=== PATIENT | female | born 1960 | race Caucasian/White ===

== ENCOUNTER 2016-05-11 05:11 | Observation (INO) | payer MEDICARE, MEDICAID ==
[~2016-05-11] VITALS: Ht 160 cm; Wt 51.9 kg
[~2016-05-11 05:11] MED LIST: ALBU17IN2 INH; ALBU83IN INH; BACT800T5 PO; CALC600T21 PO; FOSA70TA PO; LEVA750T PO; MECL-68 PO; MUCI600T34 PO; NAPR500T2 PO; PEPC1TAB4 PO; SYMB16INH INH; TIOT18INH INH; TRAM50TA2 PO; ZOVI5CRE4 TOP; ZYRT10TA2 PO; deltasone PO
[2016-05-11] MEDS ORDERED: LORazepam 2 MG/ML VIAL (J2060) As Ordered ONE ×2 (06:15→07:17)
[2016-05-11 06:41] LABS: BASO % 0.6 % (0.0-1.0); EOS # 0.1 K/mm3 (0.0-0.50); EOS % 1.3 % (0.0-3.0); LARGE UNSTAINED CELL # 0.1 K/mm3 (0.0-0.4); LARGE UNSTAINED CELL % 1.8 % (0.0-4.0); LYMPH # 1.8 K/mm3 (1.5-4.5); LYMPH % 30.1 % (24.0-44.0); MEAN CORPUSCULAR HEMOGLOBIN 34.6 pg (27.0-33.0); MEAN CORPUSCULAR HGB CONC 33.4 g/dl (32.0-36.5); MEAN CORPUSCULAR VOLUME 103.5 fl (80.0-96.0); MONO # 0.3 K/mm3 (0.0-0.8); NEUTROPHILS # 3.7 K/mm3 (1.8-7.7); NEUTROPHILS % 61.1 % (36.0-66.0); PLATELET COUNT, AUTOMATED 190 k/mm3 (150-450); RED CELL DISTRIBUTION WIDTH 11.5 % (11.5-14.5)
[2016-05-11 06:48] LABS: AMPHETAMINES LEVEL URINE NEGATIVE (NEGATIVE); BENZODIAZEPINES URINE NEGATIVE (NEGATIVE); COCAINE METABOLITE URINE NEGATIVE (NEGATIVE); CONTROL LINE INT CTR LINE PRESENT; METHADONE URINE NEGATIVE (NEGATIVE); OPIATES URINE NEGATIVE (NEGATIVE); TRICYCLIC ANTIDEPRESS URINE POSITIVE (NEGATIVE)
[2016-05-11 06:58] LABS: VENOUS BASE EXCESS -1.5 (-2.0-2.0); VENOUS PARTIAL PRESSURE CO2 59.1 mmHg (38.0-50.0); VENOUS PARTIAL PRESSURE O2 25.9 mmHg (30.0-50.0); VENOUS STANDARD HCO3 21.9 MEQ/L; VENOUS TOTAL CO2 28.4 MEQ/L (24.0-28.0)
[2016-05-11 07:05] LABS: ALBUMIN 3.5 GM/DL (3.2-5.2); ALBUMIN/GLOBULIN RATIO 1.13 (1.00-1.93); ALKALINE PHOSPHATASE 54 U/L (45-117); ALT/SGPT 20 U/L (12-78); ANION GAP 12 MEQ/L (8-16); AST/SGOT 23 U/L (15-37); BILIRUBIN,DIRECT < 0.1 MG/DL (0.0-0.2); BILIRUBIN,TOTAL 0.2 MG/DL (0.2-1.0); BLOOD UREA NITROGEN 6 MG/DL (7-18); CALCIUM LEVEL 8.7 MG/DL (8.5-10.1); CARBON DIOXIDE LEVEL 24 MEQ/L (21-32); CHLORIDE LEVEL 102 MEQ/L (98-107); CREATININE FOR GFR 0.64 MG/DL (0.55-1.02); GLOMERULAR FILTRATION RATE > 60.0 (>51); GLUCOSE, FASTING 66 MG/DL (70-105); POTASSIUM SERUM 4.2 MEQ/L (3.5-5.1); SODIUM LEVEL 138 MEQ/L (136-145); TOTAL PROTEIN 6.6 GM/DL (6.4-8.2)
--- NOTE | 2016-05-11 07:10 | REPUSA ---
CLINICAL HISTORY: Altered mental status. TECHNIQUE: Multiple axial brain CT scan sections were obtained from base to vertex without contrast a dministration. COMMENTS: The study shows normal configuration of sella turcica. There are no intra or extra-axial collections. There is no mass effect or midline shift. There is no evidence of hematoma formation. No hydrocephal us is present. No abnormal calcifications are noted. No significant abnormalities are seen either in the posterior fossa or supratentorial compartment. The sinuses and mastoid air cells are patent. IMPRESSION: No evidence of acute intracranial pathology. Thank you for your kind referral of this patient.
[2016-05-11] MEDS ORDERED: OMEP40CA2 PO (07:40)
[2016-05-11] MEDS ORDERED: DICY20TA11 PO (07:40)
[2016-05-11] MEDS ORDERED: CALC600T68 PO (07:40)
[2016-05-11] MEDS ORDERED: AMIT100TA PO (07:40)
[2016-05-11] MEDS ORDERED: PRAM0.5T4 PO (07:40)
[2016-05-11] MEDS ORDERED: ESTR1DIS2 TD (07:42)
[2016-05-11] MEDS ORDERED: DEXTROSE 50% 50 ML SYRINGE As Ordered ONE (07:44)
[2016-05-11] MEDS ORDERED: LISI10TA4 PO (07:44)
[2016-05-11] MEDS ORDERED: OXAZEPAM 15 MG CAP As Ordered ONE (07:44)
[2016-05-11] MEDS ORDERED: THIAMINE HCL 200 MG/2 ML VIAL (J3411) As Ordered ONE (07:44)
[2016-05-11] MEDS ORDERED: ONDANSETRON 4MG/2ML VIAL (J2405) IV PRN (08:15)
[2016-05-11] MEDS ORDERED: ACETAMINOPHEN 500 MG TAB PO PRN (08:15)
[2016-05-11] MEDS ORDERED: LORazepam 2 MG/ML VIAL (J2060) IV PRN (08:15)
[2016-05-11] MEDS: FOLIC ACID 1 MG TAB PO SCH (09:00)
[2016-05-11] MEDS: PANTOPRAZOLE 40MG TAB (PROTONIX) PO SCH (09:00)
[2016-05-11] MEDS: LISINOPRIL 10 MG TAB PO SCH (09:00)
[2016-05-11] MEDS: SENOKOT S TAB PO SCH ×2 (09:00→21:31)
--- NOTE | 2016-05-11 09:08 | EDDOCDS ---
Physician Documentation [facility] Name: Nirmala Goodson Age: 55 yrs Sex: Female : 1960 Arrival Date: 05/11/2016 Time: 05:11 Bed 2 Private MD: [facility] - Adults Disposition: 05/11/16 08:24 Hospitalization ordered by Tori Ribeiro for Inpatient Admission. Preliminary diagnosis is Altered mental status, unspecified. - Bed requested for 5 Sofia. - Status is Inpatient Admission. kr3 - Condition is Stable. - Problem is an acute exacerbation. - Symptoms have improved. Historical: - Allergies: PENICILLINS; Amoxicillin; - Home Meds: 1. omeprazole 40 mg Oral cpDR 1 cap once daily 2. alendronate 70 mg oral tab 1 tab once wkly 3. acyclovir cream 5% q3h for cold sores 4. meclizine 25 mg Oral tab 1 tab 3 times per day 5. dicyclomine 20 mg Oral tab 1 tab 4 times per day 6. amitriptyline 100 mg Oral tab 2 tabs once daily hs 7. cetirizine 10 mg oral tab 1 tab once daily 8. pramipexole 0.5 mg oral tab 2 tabs twice a day 9. calcium 600mg/400U 10. lisinopril 10 mg Oral tab 1 tab once daily 11. loperamide 2 mg Oral cap 2 caps twice a day as needed - PMHx: Hypertension; - PSHx: ; Hysterectomy; Sinus Surgery; Tubal ligation; - Social history: Smoking status: unknown if patient ever smoked tobacco. Patient is speech impaired. - Family history: Not pertinent. - : Unable to assess if pt is on anticoagulants. Home medication list is obtained from pill bottles. - Exposure Risk Screening:: None identified. Vital Signs: 05/11 05:23 BP 161 / 93; Pulse 103; Resp 20; Temp 97.5(TE); Pulse Ox 100% on R/A; Weight 64.86 kg / jmv 142.99 lbs (R); Height 5 ft. 3 in. (160.02 cm) (R); Pain 0/10; 06:06 BP 111 / 70 (auto/); ko2 06:08 Pulse 89 MON; Pulse Ox 98% ; ko2 07:11 BP 147 / 72; Pulse 88; Resp 18; Pulse Ox 100% on R/A; kr3 08:05 BP 125 / 67; Pulse 100; Resp 18; Pulse Ox 96% on R/A; kr3 05:23 Body Mass Index 25.33 (64.86 kg, 160.02 cm) carline MDM: 05:54 Consult PFS/PSA/3D Technologist ordered. may 05:54 Consult PFS/PSA/3D Technologist: Patient's case requires discussion with on-call david Psychiatrist ordered. 05:54 PSA/PFS to call Nursing Plant Anatomist, to enter patient data on [place] Safe Act if patient david involuntarily admitted or transferred for SI or HI ordered. 05:54 Confirm accurate psychiatric medication list and times of last dosage ordered. may 05:54 Detain Pt Until Medically/PFS Cleared ordered. may 05:55 Acetaminophen Level Ordered. EDMS 05:55 Basic Metabolic Profile Ordered. EDMS 05:55 Drug Eval Toxicology ED Only Ordered. EDMS 05:55 Ethyl Alcohol (ethanol) Ordered. EDMS 05:55 Liver Profile Ordered. EDMS 05:55 Salicylate Level Ordered. EDMS 05:55 Thyroid Stimulating Hormone Ordered. EDMS 06:10 [employer] Youth Supervisor/Pulse Ox/q 15 min VS ordered. mm11 06:10 Accucheck ordered. mm11 06:10 IV Saline Lock ordered. mm11 06:10 Oxygen at 4L/Min NC or Home dosage ordered. mm11 06:10 Rhythm Strip to chart ordered. mm11 06:10 CBC with Diff Ordered. EDMS 06:10 Cardiac Injury Profile Ordered. EDMS 06:10 Troponin Ordered. EDMS 06:10 Urinalysis Ordered. EDMS 06:10 Urine Culture Ordered. EDMS 06:10 CT Head Without Contrast Ordered. EDMS 06:11 ECG WITH READING ER PHYS+CARDIAG ordered. EDMS 06:12 Chest, 1 View Ordered. EDMS 06:13 LORazepam 2 mg IVP once ordered. mm11 06:21 Fingerstick Blood Sugar Ordered. EDMS 06:51 Venous Blood Gas (large pea green tube on ice) Ordered. EDMS 07:04 Drug Eval Toxicology ED Only Reviewed. mm11 07:04 CBC with Diff Reviewed. mm11 07:04 Cardiac Injury Profile Reviewed. mm11 07:04 Urinalysis Reviewed. mm11 07:04 Venous Blood Gas (large pea green tube on ice) Reviewed. mm11 07:04 Troponin Reviewed. mm11 07:04 Fingerstick Blood Sugar Reviewed. mm11 07:08 Acetaminophen Level Reviewed. mm11 07:08 Basic Metabolic Profile Reviewed. mm11 07:08 Ethyl Alcohol (ethanol) Reviewed. mm11 07:08 Liver Profile Reviewed. mm11 07:08 Salicylate Level Reviewed. mm11 07:08 Thyroid Stimulating Hormone Reviewed. mm11 07:16 BED REQUEST+ADM ordered. EDMS 07:17 LORazepam 2 mg IVP once ordered. mm11 07:19 Oxazepam 30 mg PO once ordered. mm11 07:32 CT Head Without Contrast Reviewed. mm11 07:33 Thiamine 100 mg IVP once ordered. mm11 07:33 D50W 50 ml IVP once; (1 amp) ordered. mm11 08:09 Admission / Observation Status ordered. EDMS 08:10 REGULAR DIET ordered. EDMS 08:17 Financial registration complete. 08:17 [facility] Payment Agreement was scanned into [employer] and attached to record. lg Administered Medications: 06:20 Drug: LORazepam 2 mg [lorazepam 2 mg/mL injection solution (1 mL)] Route: IVP; Site: ko2 left hand; 07:19 Drug: LORazepam 2 mg [lorazepam 2 mg/mL injection solution (1 mL)] Route: IVP; Site: kr3 left hand; 07:52 Follow up: Response: No significant change. kr3 07:49 Drug: D50W 50 ml [dextrose 50 % in water (D50W) intravenous syringe (50 mL)] Route: kr3 IVP; Site: left hand; 08:06 Follow up: Response: No significant change. kr3 07:51 Drug: Thiamine 100 mg [thiamine HCl (vitamin B1) 100 mg/mL injection solution (1 mL)] kr3 Route: IVP; Site: left hand; 08:06 Follow up: Response: No significant change. kr3 08:48 Not Given (patient confused, uncooperative, agitated): Oxazepam 30 mg PO once kr3 Signatures: Dispatcher [employer] EDMS Yuliya Greene RN RN kpj Newman, Jill New, RN RN jan Ganter, LoriLee, Otoniel Frederick Nkechi Troncoso RN RN kr3 Adelso Berger, DO mm11 Elli Spencer RN RN mlc Ogden, Kari RN ko2 The chart was reviewed and I authenticate all verbal orders and agree with the evaluation and treatment provided.Corrections: (The following items were deleted from the chart) 06:12 05:55 COMPLETE BLOOD COUNT+LAB ordered. EDMS EDMS Attachments: 08:17 [facility] Payment Agreement lg MTDD
--- NOTE | 2016-05-11 09:08 | EDDOCDS ---
Nurse's Notes [facility] Name: Nirmala Goodson Age: 55 yrs Sex: Female : 1960 Arrival Date: 05/11/2016 Time: 05:11 Bed 2 Private MD: [facility] Diagnosis: Altered mental status, unspecified Presentation: 05/11 05:21 Presenting complaint: EMS states: Significant other called EMS due to pt not "acting mlc right". SO states pt was "shaky" and altered mental status. pt has slurred speech and is restless. SO states that pt likes to "stay up late, drinking and doing crafts", states pt may have drank 12 beers. Adult Sepsis Screening: Patient has new or worsening altered mentation (1 point). Patient's respiratory rate is less than 22. Systolic blood pressure is greater than 100. Patient has a qSOFA score of 1- Negative Sepsis Screen. Suicide/Homicide risk assessment- Unable to assess, the patient has an altered level of consciousness. 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 Transition of care: patient was not received from another setting of care. 05:21 Acuity: RENE Level 3 [facility] [place]:21 Method Of Arrival: Amb[place] [facility] Triage Assessment: 05:35 General: Appears unkempt, Behavior is restless, pt grabbing at railing and shaky the mlc bed, pt consoled easily. pt unable to sit still . HIV screening NA for this visit Offered previously. The patient is triaged at the bedside. See Assessment in Nurses Notes section of ED record. Neurological: Level of Consciousness is confused, obeys commands, Oriented to person. Respiratory: Airway is patent Respiratory effort is even, unlabored, Respiratory pattern is regular. Derm: Skin is normal. Historical: - Allergies: PENICILLINS; Amoxicillin; - Home Meds: 1. omeprazole 40 mg Oral cpDR 1 cap once daily 2. alendronate 70 mg oral tab 1 tab once wkly 3. acyclovir cream 5% q3h for cold sores 4. meclizine 25 mg Oral tab 1 tab 3 times per day 5. dicyclomine 20 mg Oral tab 1 tab 4 times per day 6. amitriptyline 100 mg Oral tab 2 tabs once daily hs 7. cetirizine 10 mg oral tab 1 tab once daily 8. pramipexole 0.5 mg oral tab 2 tabs twice a day 9. calcium 600mg/400U 10. lisinopril 10 mg Oral tab 1 tab once daily 11. loperamide 2 mg Oral cap 2 caps twice a day as needed - PMHx: Hypertension; - PSHx: ; Hysterectomy; Sinus Surgery; Tubal ligation; - Social history: Smoking status: unknown if patient ever smoked tobacco. Patient is speech impaired. - Family history: Not pertinent. - : Unable to assess if pt is on anticoagulants. Home medication list is obtained from pill bottles. - Exposure Risk Screening:: None identified. Screenin:20 Screening information is obtained from staff. Fall risk: At risk due to apparent kr3 chemical impairment, apparent cognitive impairment, The following interventions are performed due to a positive Fall Risk Screen: Fall Alert bracelet is placed on the patient. Assistance ADL's: unable to assess. Abuse/DV Screen: Unable to Assess. Nutritional screening: Unable to Assess. Advance Directives: Unable to assess Advance Directive status due to pt condition. Assessment: 05:38 General: pt given 0.4mg narcan by EMS, no significant change noted. mlc 05:39 General: Appears distressed, Behavior is anxious, restless. Pain: Denies pain. ko2 Neurological: Level of Consciousness is awake, alert. Cardiovascular: Rhythm is sinus rhythm No ectopy. Respiratory: Airway is patent Respiratory effort is even, unlabored. Derm: Skin is normal. 06:27 General: Appears distressed, Behavior is anxious. Neurological: Level of Consciousness ko2 is awake. Respiratory: Airway is patent Respiratory effort is even, unlabored. Derm: Skin is normal. 07:10 Reassessment: increase agitation, calmed with redirection. High of bed elevated and kr3 patient covered with blankets and patient became calmer. Sitter at bedside. 07:20 Reassessment: continues to be restless, throwing arms and legs all over bed, kr3 redirection unsuccessful, Dr Berger aware and medication given. 07:52 Reassessment: agitation continues and not following directions. Does not open eyes. kr3 Arms and legs all over stretcher. Bleeding from left forearm from old wound that scab came off from, bandaid applied to area. 09:00 Reassessment: agitation continues, thrashing arms and legs all over stretcher, unable kr3 to redirect for even small amount of time. Respiratory: Respiratory effort is even. Derm: Skin is normal, multiple areas of old wounds on arms. Vital Signs: 05:23 BP 161 / 93; Pulse 103; Resp 20; Temp 97.5(TE); Pulse Ox 100% on R/A; Weight 64.86 kg [facility] (R); Height 5 ft. 3 in. (160.02 cm) (R); Pain 0/10; 06:06 BP 111 / 70 (auto/); ko2 06:08 Pulse 89 MON; Pulse Ox 98% ; ko2 07:11 BP 147 / 72; Pulse 88; Resp 18; Pulse Ox 100% on R/A; kr3 08:05 BP 125 / 67; Pulse 100; Resp 18; Pulse Ox 96% on R/A; kr3 05:23 Body Mass Index 25.33 (64.86 kg, 160.02 cm) [facility] Vitals: 05:35 Log In Time N/A - ambulance arrival. [facility] [place] Course: 05:12 Patient visited by Mai Haddad, Senior Sales Administrator. ml3 05:12 Dorota Rodriguez is Private Physician. ml3 05:12 [facility] is Private Physician. ml3 05:12 Loni Cortes,RN is Primary Nurse. ml3 05:12 Patient moved to Waiting ml3 05:12 Patient moved to 2 ml3 05:24 Pt greeted and oriented to ED. Patient advised of names of staff involved in care, [facility] location of call rojas, wait times and NPO status. Patient has correct armband on for positive identification. Placed in gown. Bed in low position. Call light in reach. Side rails up X2. instrument fitter on. Pulse ox on. NIBP on. 05:25 Patient visited by Phil Varghese PCA. [facility] 05:27 Triage Initiated [facility] 05:37 Maintain field IV. Gauge & site: 22g left hand. [facility] 06:05 Adelso Berger DO is Attending Physician. mm11 06:05 Patient visited by Adelso Berger DO. mm11 06:09 Patient visited by Adelso Berger DO. mm11 06:26 CBC with Diff Sent. ko2 06:26 Cardiac Injury Profile Sent. ko2 06:26 Troponin Sent. ko2 06:26 Urinalysis Sent. ko2 06:27 Patient visited by Loni Cortes RN. ko2 06:27 Urine Culture Sent. ko2 06:27 Ethyl Alcohol (ethanol) Sent. ko2 06:27 Liver Profile Sent. ko2 06:32 Patient visited by Lavinia Simpson PCA. cln 06:32 EKG done. (by ED staff). Reviewed by Adelso Berger DO. cln 07:06 Nkechi Troncoso,RN is Primary Nurse. kr3 07:10 Patient visited by Nkechi Troncoso,RN. kr3 07:29 CT Head Without Contrast Returned. EDMS 07:51 Patient visited by Nkechi Troncoso,FLORENCIO. kr3 07:54 The patient / caregiver is instructed regarding the plan of care and ED course. kr3 08:13 Patient name changed from Nirmala\\S\\\\S\\Goodson\\S\\ to Nirmala\\S\\ \\S\\Goodson. EDMS 08:17 [facility] Payment Agreement was scanned into [employer] and attached to record. lg 08:24 Tori Ribeiro is Hospitalizing Provider. mm11 08:59 No procedures done that require assistance. kr3 Administered Medications: 06:20 Drug: LORazepam 2 mg [lorazepam 2 mg/mL injection solution (1 mL)] Route: IVP; Site: ko2 left hand; 07:19 Drug: LORazepam 2 mg [lorazepam 2 mg/mL injection solution (1 mL)] Route: IVP; Site: kr3 left hand; 07:52 Follow up: Response: No significant change. kr3 07:49 Drug: D50W 50 ml [dextrose 50 % in water (D50W) intravenous syringe (50 mL)] Route: kr3 IVP; Site: left hand; 08:06 Follow up: Response: No significant change. kr3 07:51 Drug: Thiamine 100 mg [thiamine HCl (vitamin B1) 100 mg/mL injection solution (1 mL)] kr3 Route: IVP; Site: left hand; 08:06 Follow up: Response: No significant change. kr3 08:48 Not Given (patient confused, uncooperative, agitated): Oxazepam 30 mg PO once kr3 Order Results: Lab Order: Acetaminophen Level; SPEC'M 05/11/16 06:21 Test: ACETAMINOPHEN LEVEL; Value: < 2.0; Range: 10.0-30.0; Abnormal: Below low normal; Units: UG/ML; Status: F Lab Order: Basic Metabolic Profile; SPEC'M 05/11/16 06:21 Test: GLUCOSE, FASTING; Value: 66; Range: 70-105; Abnormal: Below low normal; Units: MG/DL; Status: F Test: BLOOD UREA NITROGEN; Value: 6; Range: 7-18; Abnormal: Below low normal; Units: MG/DL; Status: F Test: CREATININE FOR GFR; Value: 0.64; Range: 0.55-1.02; Units: MG/DL; Status: F Test: GLOMERULAR FILTRATION RATE; Value: > 60.0; Range: >51; Status: F Test: SODIUM LEVEL; Value: 138; Range: 136-145; Units: MEQ/L; Status: F Test: POTASSIUM SERUM; Value: 4.2; Range: 3.5-5.1; Units: MEQ/L; Status: F Test: CHLORIDE LEVEL; Value: 102; Range: 98-107; Units: MEQ/L; Status: F Test: CARBON DIOXIDE LEVEL; Value: 24; Range: 21-32; Units: MEQ/L; Status: F Test: ANION GAP; Value: 12; Range: 8-16; Units: MEQ/L; Status: F Test: CALCIUM LEVEL; Value: 8.7; Range: 8.5-10.1; Units: MG/DL; Status: F Test Note: ; Units are mL/min/1.73 m2 Chronic Kidney Disease Staging per NKF: Stage I & II GFR >=60 Normal to Mildly Decreased Stage III GFR 30-59 Moderately Decreased Stage IV GFR 15-29 Severely Decreased Stage V GFR <15 Very Little GFR Left ESRD GFR <15 on SALES RECRUITER Lab Order: Drug Eval Toxicology ED Only; SPEC'M 05/11/16 06:21 Test: AMPHETAMINES LEVEL URINE; Value: NEGATIVE; Range: NEGATIVE; Status: F Test: BARBITURATES URINE; Value: NEGATIVE; Range: NEGATIVE; Status: F Test: BENZODIAZEPINES URINE; Value: NEGATIVE; Range: NEGATIVE; Status: F Test: CANNABINOIDS URINE; Value: NEGATIVE; Range: NEGATIVE; Status: F Test: COCAINE METABOLITE URINE; Value: NEGATIVE; Range: NEGATIVE; Status: F Test: METHADONE URINE; Value: NEGATIVE; Range: NEGATIVE; Status: F Test: OPIATES URINE; Value: NEGATIVE; Range: NEGATIVE; Status: F Test: TRICYCLIC ANTIDEPRESS URINE; Value: POSITIVE; Range: NEGATIVE; Abnormal: Above high normal; Status: F Test Note: ; ALL PRESUMPTIVE POSITIVE FINDINGS ARE UNCONFIRMED NORMAL VALUES THRESHOLD IN NG/ML AMPHETAMINES 1000 METHAMPHETAMINES 1000 BARBITURATES 300 BENZODIAZEPINES 300 CANNABINOIDS (THC) 50 COCAINE METABOLITE 300 METHADONE 300 OPIATES 300 PHENCYCLIDINE 25 TRICYCLIC ANTIDEPRESSANTS 1000 RESULTS ARE FOR MEDICAL PURPOSES ONLY. ALL URINE SPECIMENS WILL BE SAVED FOR 3 DAYS. IF CONFIRMATION OF A PRESUMPTIVE POSTIVE SCREEN RESULT IS DESIRED, CALL CHEMISTRY ([phone]) AND REQUEST URINE TO BE SENT TO REFERENCE LAB. FOR A LIST OF CLOSELY RELATED COMPOUNDS PLEASE CALL THE LAB. Lab Order: Ethyl Alcohol (ethanol); SPEC'M 05/11/16 06:21 Test: ETHYL ALCOHOL (ETHANOL); Value: 0.092; Range: 0.000-0.010; Abnormal: Above high normal; Units: %; Status: F Lab Order: Liver Profile; SPEC'M 05/11/16 06:21 Test: AST/SGOT; Value: 23; Range: 15-37; Units: U/L; Status: F Test: ALT/SGPT; Value: 20; Range: 12-78; Units: U/L; Status: F Test: ALKALINE PHOSPHATASE; Value: 54; Range: 45-117; Units: U/L; Status: F Test: BILIRUBIN,TOTAL; Value: 0.2; Range: 0.2-1.0; Units: MG/DL; Status: F Test: BILIRUBIN,DIRECT; Value: < 0.1; Range: 0.0-0.2; Units: MG/DL; Status: F Test: TOTAL PROTEIN; Value: 6.6; Range: 6.4-8.2; Units: GM/DL; Status: F Test: ALBUMIN; Value: 3.5; Range: 3.2-5.2; Units: GM/DL; Status: F Test: ALBUMIN/GLOBULIN RATIO; Value: 1.13; Range: 1.00-1.93; Status: F Lab Order: Salicylate Level; SPEC'M 05/11/16 06:21 Test: SALICYLATE LEVEL; Value: 5.6; Range: 5.0-30.0; Units: MG/DL; Status: F Lab Order: Thyroid Stimulating Hormone; SPEC'M 05/11/16 06:21 Test: THYROID STIMULATING HORMONE; Value: 2.360; Range: 0.358-3.740; Units: uIU/ML; Status: F Lab Order: CBC with Diff; SPEC'M 05/11/16 06:21 Test: WHITE BLOOD COUNT; Value: 6.0; Range: 4.0-10.0; Units: K/mm3; Status: F Test: RED BLOOD COUNT; Value: 4.03; Range: 4.00-5.40; Units: M/mm3; Status: F Test: HEMOGLOBIN; Value: 14.0; Range: 12.0-16.0; Units: g/dl; Status: F Test: HEMATOCRIT; Value: 41.7; Range: 36.0-47.0; Units: %; Status: F Test: MEAN CORPUSCULAR VOLUME; Value: 103.5; Range: 80.0-96.0; Abnormal: Above high normal; Units: fl; Status: F Test: MEAN CORPUSCULAR HEMOGLOBIN; Value: 34.6; Range: 27.0-33.0; Abnormal: Above high normal; Units: pg; Status: F Test: MEAN CORPUSCULAR HGB CONC; Value: 33.4; Range: 32.0-36.5; Units: g/dl; Status: F Test: RED CELL DISTRIBUTION WIDTH; Value: 11.5; Range: 11.5-14.5; Units: %; Status: F Test: PLATELET COUNT, AUTOMATED; Value: 190; Range: 150-450; Units: k/mm3; Status: F Test: NEUTROPHILS %; Value: 61.1; Range: 36.0-66.0; Units: %; Status: F Test: LYMPH %; Value: 30.1; Range: 24.0-44.0; Units: %; Status: F Test: MONO %; Value: 5.0; Range: 0.0-5.0; Units: %; Status: F Test: EOS %; Value: 1.3; Range: 0.0-3.0; Units: %; Status: F Test: BASO %; Value: 0.6; Range: 0.0-1.0; Units: %; Status: F Test: LARGE UNSTAINED CELL %; Value: 1.8; Range: 0.0-4.0; Units: %; Status: F Test: NEUTROPHILS #; Value: 3.7; Range: 1.8-7.7; Units: K/mm3; Status: F Test: LYMPH #; Value: 1.8; Range: 1.5-4.5; Units: K/mm3; Status: F Test: MONO #; Value: 0.3; Range: 0.0-0.8; Units: K/mm3; Status: F Test: EOS #; Value: 0.1; Range: 0.0-0.50; Units: K/mm3; Status: F Test: BASO #; Value: 0.0; Range: 0.0-0.2; Units: K/mm3; Status: F Test: LARGE UNSTAINED CELL #; Value: 0.1; Range: 0.0-0.4; Units: K/mm3; Status: F Lab Order: Cardiac Injury Profile; SPEC'M 05/11/16 06:21 Test: CPK CREATINE PHOSPHOKINASE; Value: 72; Range: 26-192; Units: U/L; Status: F Test: CK-MB VALUE MASS; Value: 3.6; Range: 0.0-3.6; Units: NG/ML; Status: F Test: MB/CK RELATIVE INDEX; Value: 5.00; Range: < OR =4; Abnormal: Above high normal; Status: F Test Note: ; DIAGNOSIS CRITERIA MMB ng/ml Relative Index (RI) NON-AMI < or = 5 N/A [place] > 5 < or = 4 AMI > 5 > 4 Lab Order: Troponin; SPEC'M 05/11/16 06:21 Test: TROPONIN I; Value: < 0.02; Range: < 0.10; Units: NG/ML; Status: F Test Note: ; Troponin I Reference Interval for CDP LOCI: 99th Percentile= 0.00-0.045 ng/ml Risk Stratification: <= 0.10 ng/ml Decreased Risk for Adverse Clinical Events. 0.10-1.50 ng/ml Increased Risk for Adverse Clinical Events. Evaluation of additional criterion and/or repeat testing in 2-6 hours is suggested to rule out myocardial damage. >= 1.50 ng/ml Indicative of Myocardial Injury. Lab Order: Urinalysis; SPEC'M 05/11/16 06:21 Test: APPEARANCE, URINE; Value: CLEAR; Range: CLEAR; Status: F Test: COLOR, URINE; Value: STRAW; Range: YELLOW; Status: F Test: PH,URINE; Value: 5.0; Range: 5.0-9.0; Units: UNITS; Status: F Test: SPECIFIC GRAVITY URINE AUTO; Value: 1.001; Range: 1.002-1.035; Abnormal: Below low normal; Status: F Test: PROTEIN, URINE AUTO; Value: NEGATIVE; Range: NEGATIVE; Units: mg/dL; Status: F Test: GLUCOSE, URINE (UA) AUTO; Value: NEGATIVE; Range: NEGATIVE; Units: mg/dL; Status: F Test: KETONE, URINE AUTO; Value: NEGATIVE; Range: NEGATIVE; Units: mg/dL; Status: F Test: UROBILINOGEN, URINE AUTO; Value: 0.2; Range: 0.0-2.0; Units: mg/dL; Status: F Test: BILIRUBIN, URINE AUTO; Value: NEGATIVE; Range: NEGATIVE; Status: F Test: NITRITE, URINE AUTO; Value: POSITIVE; Range: NEGATIVE; Status: F Test: LEUKOCYTE ESTERASE, URINE AUTO; Value: TRACE; Range: NEGATIVE; Abnormal: Above high normal; Status: F Test: BLOOD, URINE BLOOD; Value: 1+; Range: NEGATIVE; Abnormal: Above high normal; Status: F Test: WBC, URINE AUTO; Value: 2; Range: 0-3; Units: /HPF; Status: F Test: RBC, URINE AUTO; Value: 0; Range: 0-3; Units: /HPF; Status: F Test: BACTERIA, URINE AUTO; Value: 2+; Range: NEGATIVE; Abnormal: Above high normal; Status: F Test: SQUAMOUS EPITHELIAL CELL UR AU; Value: 0; Range: 0-6; Units: /HPF; Status: F Test: HYALINE CAST, URINE AUTO; Value: 0; Range: 0-1; Units: /LPF; Status: F Lab Order: Fingerstick Blood Sugar; SPEC'M 05/11/16 06:11 Test: BEDSIDE GLUCOSE; Value: 71; Range: 70-105; Units: MG/DL; Status: F Lab Order: Venous Blood Gas (large pea green tube on ice); SPEC'M 05/11/16 06:21 Test: VENOUS PH; Value: 7.271; Range: 7.330-7.430; Abnormal: Below low normal; Units: UNITS; Status: F Test: VENOUS PARTIAL PRESSURE CO2; Value: 59.1; Range: 38.0-50.0; Abnormal: Above high normal; Units: mmHg; Status: F Test: VENOUS PARTIAL PRESSURE O2; Value: 25.9; Range: 30.0-50.0; Abnormal: Below low normal; Units: mmHg; Status: F Test: VENOUS TOTAL CO2; Value: 28.4; Range: 24.0-28.0; Abnormal: Above high normal; Units: MEQ/L; Status: F Test: VENOUS HCO3; Value: 26.6; Range: 23.0-27.0; Units: MEQ/L; Status: F Test: VENOUS BASE EXCESS; Value: -1.5; Range: -2.0-2.0; Status: F Test: VENOUS STANDARD HCO3; Value: 21.9; Units: MEQ/L; Status: F Test: VENOUS O2 SATURATION; Value: 42.0; Range: 60.0-80.0; Abnormal: Below low normal; Units: %; Status: F Radiology Order: CT Head Without Contrast Test: CT Head Without Contrast REASON FOR EXAMINATION: AMS; ; CLINICAL HISTORY: Altered mental status.; TECHNIQUE: Multiple axial brain CT scan sections were obtained from base to vertex without contrast a; dministration.; COMMENTS:; The study shows normal configuration of sella turcica. There are no intra or extra-axial collections.; There is no mass effect or midline shift. There is no evidence of hematoma formation. No hydrocephal; us is present. No abnormal calcifications are noted.; No significant abnormalities are seen either in the posterior fossa or supratentorial compartment.; The sinuses and mastoid air cells are patent.; IMPRESSION:; No evidence of acute intracranial pathology.; Thank you for your kind referral of this patient.; ; Outcome: 07:54 CT Study completed. 3 08:24 Decision to Hospitalize by Provider. mm11 08:59 Discharge Assessment: patient administered narcotics - yes. Patient was admitted to the [facility] or transferred to another facility. The following High Risk Discharge criteria are identified: Yes, Admitted to Med/Surg accompanied by tech, via stretcher, with chart. Condition: unchanged. Property :Personal belongings accompany Pt. 09:07 Patient left the ED. [facility] Signatures: Dispatcher [employer] EDMS Mono Ly, Reg Reg lg Boo, JellyTylerAlisa, Senior Sales Administrator Unit ml3 Nkechi Troncoso,RN RN kr3 Adelso Berger, DO mm11 Elli Spencer,RN RN Loni Flores RN RN [email or web address] Lavinia Simpson, STEEL UNLOADER STEEL UNLOADER cln Phil Varghese, STEEL UNLOADER STEEL UNLOADER jmv Corrections: (The following items were deleted from the chart) 07:14 07:11 BP 111 / 70; Pulse 88bpm; Resp 16bpm; Pulse Ox 100% RA; [place] [id number] MTDD
--- NOTE | 2016-05-11 09:12 | REP ---
Portable chest x-ray: Sitting AP view. History: Altered mental status. Comparison study November 22, 2014. 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 Lung rossi are otherwise clear. Pleural angles are sharp. Cardiomediastinal silhouette is unremarkable and unchanged. EKG monitoring electrodes overlie the chest. Impression: No active disease. Signed by Tyler Chirinos MD 05/11/2016 10:22 A
[2016-05-11 09:28] VITALS: BP 154/89
--- NOTE | 2016-05-11 09:30 | ECGEPIP ---
Stationary ECG Study [facility] - ED Test Date: 2016-05-11 Pat Name: GRETCHEN GO Department: Room: - Gender: F Material Expediter: indira : 1960 Requested By: FRANCOIS Polk Order Number: [id number] Reading MD: Dano Haskins Measurements Intervals [place] Rate: 87 P: 66 OR: 157 QRS: 87 QRSD: 98 T: 70 QT: 378 QTc: 457 Interpretive Statements SINUS RHYTHM WITH SINUS ARRHYTHMIA Electronically Signed On 05-11-2016 9:29:54 EST by Dano Haskins
[2016-05-11] MEDS: D5W/0.9% SODIUM CHLORIDE 1,000 ML IV SCH ×2 (09:52→21:31)
[2016-05-11] MEDS: ENOXAPARIN 40 MG/0.4 ML SYRINGE (J1650) SC SCH (09:52)
[2016-05-11 11:26] LABS: ABG BASE EXCESS -0.1 (-2.0-2.0); ABG HCO3 24.8 MEQ/L (22.0-26.0); ABG PARTIAL PRESSURE CO2 41.1 mmHg (35.0-45.0); ABG PARTIAL PRESSURE O2 80.7 mmHg (75.0-100.0); ABG STANDARD HCO3 24.4 MEQ/L (22.0-26.0); ABG pH (ARTERIAL) 7.398 UNITS (7.350-7.450)
[2016-05-11] MEDS: OXAZEPAM 15 MG CAP PO SCH ×2 (14:00→21:31)
[2016-05-11] MEDS: AMITRIPTYLINE 50 MG TAB PO SCH (21:31)
[2016-05-11 22:00] VITALS: BP 129/77
[2016-05-12] MEDS: OXAZEPAM 15 MG CAP PO SCH ×3 (05:43→21:15)
[2016-05-12 06:00] VITALS: BP 105/61
[2016-05-12 06:52] LABS: BASO % 0.2 % (0.0-1.0); EOS # 0.1 K/mm3 (0.0-0.50); EOS % 1.1 % (0.0-3.0); LARGE UNSTAINED CELL # 0.1 K/mm3 (0.0-0.4); LARGE UNSTAINED CELL % 1.7 % (0.0-4.0); LYMPH # 1.2 K/mm3 (1.5-4.5); MEAN CORPUSCULAR HEMOGLOBIN 35.3 pg (27.0-33.0); MEAN CORPUSCULAR HGB CONC 34.1 g/dl (32.0-36.5); MEAN CORPUSCULAR VOLUME 103.4 fl (80.0-96.0); MONO # 0.3 K/mm3 (0.0-0.8); MONO % 5.1 % (0.0-5.0); NEUTROPHILS # 3.7 K/mm3 (1.8-7.7); PLATELET COUNT, AUTOMATED 163 k/mm3 (150-450); RED CELL DISTRIBUTION WIDTH 11.5 % (11.5-14.5); WHITE BLOOD COUNT 5.4 K/mm3 (4.0-10.0)
[2016-05-12 07:14] LABS: ANION GAP 9 MEQ/L (8-16); BLOOD UREA NITROGEN 5 MG/DL (7-18); CALCIUM LEVEL 8.3 MG/DL (8.5-10.1); CARBON DIOXIDE LEVEL 25 MEQ/L (21-32); CHLORIDE LEVEL 110 MEQ/L (98-107); CREATININE FOR GFR 0.73 MG/DL (0.55-1.02); GLOMERULAR FILTRATION RATE > 60.0 (>51); GLUCOSE, FASTING 77 MG/DL (70-105); POTASSIUM SERUM 3.8 MEQ/L (3.5-5.1); SODIUM LEVEL 144 MEQ/L (136-145)
[2016-05-12] MEDS: PANTOPRAZOLE 40MG TAB (PROTONIX) PO SCH (09:09)
[2016-05-12] MEDS: FOLIC ACID 1 MG TAB PO SCH (09:09)
[2016-05-12] MEDS: LISINOPRIL 10 MG TAB PO SCH (09:09)
[2016-05-12] MEDS: SENOKOT S TAB PO SCH ×2 (09:09→21:15)
[2016-05-12] MEDS: ENOXAPARIN 40 MG/0.4 ML SYRINGE (J1650) SC SCH (09:09)
[2016-05-12] MEDS: THIAMINE 100 MG TAB PO SCH (09:09)
[2016-05-12 10:12] LABS: PROLACTIN 1.9 NG/ML
[2016-05-12] MEDS: D5W/0.9% SODIUM CHLORIDE 1,000 ML IV SCH (11:00)
--- NOTE | 2016-05-12 11:27 | HPE ---
DATE OF ADMISSION: 05/11/2016 PRIMARY CARE PROVIDER: [facility]. CHIEF COMPLAINT: Patient sent to the hospital because " she was not acting right". PAST MEDICAL HISTORY: Hypertension. Osteoporosis. Gastroesophageal reflux disease (GERD). Alcohol abuse. Depression. Irritable bowel syndrome. History of herpes. Chronic obstructive pulmonary disease (COPD). HISTORY OF PRESENT ILLNESS: This is a 55-year-old female from home who lives with her boyfriend who was in her usual state of health yesterday evening. She works with arts and [employer] and as per the boyfriend has been working physically over the past 2-3 weeks using glue gun for hours at a stretch. Also she has been drinking more for the past 2-3 weeks. She usually drinks beer and starts from around 6 o'clock in the evening until she goes to bed. Yesterday she was working until 2-3 a.m. in the morning and then she went to bed. Trying to sleep when the boyfriend noticed her limbs to be jerking around and she tried to get out of bed , was flailing and losing balance so the patient's boyfriend told her to stay in bed, however, the patient was confused and getting agitated and not following his directions so the ambulance was called and the patient was sent to the emergency room. In the ED, patient was found to have an alcohol level of 0.1092. Patient' s urine toxicology was positive for tricyclic antidepressants. The rest of the blood work was within normal limits. Patient's CT scan of the head was negative. Patient's arterial blood gas was normal. Patient did have mildly low blood sugar at 66. Chest x-ray did not show any acute disease. Patient's vital signs were stable without any fever. The hospitalist service was consulted for admission for altered mental status, acute encephalopathy versus delirium. On my exam, the patient was mostly sedated, waking up only to pain. Patient had previously received Serax in the emergency room for agitation. No history could be elicited from the patient, however, patient's boyfriend at bedside gave most of the history. 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 She also has been drinking more heavily for the past 2-3 weeks. She did deny any fevers or chills at home. Denied any sickness or sensation of illness before yesterday. PAST SURGICAL HISTORY: Hysterectomy. Sinus surgery. Tubal ligation. SOCIAL HISTORY: Patient abuses alcohol in the form of beer. Patient is a smoker. HOME MEDICATIONS: - Acyclovir 5% cream as needed cold sores - Fosamax 70 mg once a week - amitriptyline 200 mg at bedtime - vitamin D one tablet by mouth twice daily - cetirizine 10 mg by mouth daily - dicyclomine 20 mg by mouth four times daily - Estradiol - lisinopril 10 mg by mouth daily - meclizine 25 mg by mouth three times daily - omeprazole 40 mg by mouth daily - pramipexole 1 mg by mouth twice daily ALLERGIES: LEVOFLOXACIN, PENICILLIN, SULFAMETHOXAZOLE, TRIMETHOPRIM. FAMILY HISTORY: Nothing pertinent. REVIEW OF SYSTEMS: Ten point view of system, negative except for what mentioned in history of present illness. PHYSICAL EXAMINATION: Vital Signs: Temperature 95.9, pulse 111, blood pressure 154/89, pulse oximetry 90% on room air, respiratory rate 14. General: Patient lethargic, responding only to pain with agitation. HEENT: Normocephalic, atraumatic. Moist mucous membranes. Pupils 3 mm equal, reacting to light. Chest: Bilateral symmetric air entry, clear to auscultation. Cardiovascular: S1, S2, no rub, murmur or gallop. Abdomen: Soft, nontender, bowel sounds present. Extremities: No edema. Laboratory data: WBC 6, hemoglobin 14, platelets 190. Sodium 138, potassium 4.2, chloride 102, bicarbonate 24, BUN 6, creatinine 0.6, glucose 66. Cardiac enzymes are negative. Liver function tests are normal. TSH is 2.36. Imaging: CT head: No evidence of acute intracranial pathology. Chest x-ray: No active disease. ASSESSMENT: This is a 55-year-old female presented to the hospital with acute alteration of mental status and admitted for the same. 1. Acute encephalopathy. Metabolic versus toxic. Possibility of glue inhalation mediated encephalopathy. 2. Alcohol intoxication and possibly withdrawal. 3. Hypertension. 4. Depression. 5. Irritable bowel syndrome. 6. Gastroesophageal reflux disease (GERD). 7. History of vertigo. 8. Allergies. PLAN: For acute encephalopathy, will get an MRI and MRA of the brain to rule out any signs of encephalitis, though patient does not have any fever or any sickness going on. Other etiology could be glue inhalation as the patient works with a glue gun for hours together. Also patient could be having withdrawals from alcohol. As per the boyfriend, patient has been drinking heavily for the past few weeks and her blood alcohol level is only 0.09 at presentation so possibility of alcohol related alcohol withdrawal is also present and will continue the patient on Thiamine, folate, Serax and Ativan. If patient continues to be encephalopathic and delirious, may need lumbar puncture at one point. Hypertension, blood pressure reasonably well controlled. Will continue with lisinopril once the patient is able to take orally. Hypoglycemia, mild with sugars in the 60s. Will continue the patient on dextrose normal saline. Depression. Patient needs amitriptyline. Once patient is awake, will continue with that. Gastroesophageal reflux disease (GERD), will continue with pantoprazole. Deep venous thrombosis (DVT) prophylaxis as noted. MTDD
--- NOTE | 2016-05-12 13:01 | IPNPDOC ---
Assessment/Plan Date Seen The patient was seen on 05/12/16. 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 now improved ct head negative , prolactin normal mri pending (2) Depression Status: Chronic Problem Text: on amitriptyline (3) Hypertension Status: Chronic Problem Text: continue lisinopril (4) Alcohol abuse Status: Chronic Problem Text: continue thiamine, folate. serax prn (5) COPD (chronic obstructive pulmonary disease) Status: Chronic (6) GERD (gastroesophageal reflux disease) Status: Chronic Problem Text: continue ppi (7) Restless leg syndrome Status: Chronic Problem Text: continue home medications Plan / VTE VTE Prophylaxis Ordered?: Yes Subjective Review of Systems CC/HPI The patient is a 55-year-old female admitted with a reason for visit of Alcohol Intoxication Delirium. Events since last encounter patient alert oriented this morning, does not remember what happened at home how she came to the hospital , did not know what was today did not remember Thursday or thursday at all Objective Physical Examination General Exam: Positive: Alert, No Acute Distress Eye Exam: Positive: Conjunctiva & lids normal, EOMI, PERRLA, Negative: Sclera icteric ENT Exam: Positive: Atraumatic, Mucous membr. moist/pink, Pharynx Normal Neck Exam: Positive: Supple, Negative: JVD, thyromegaly Chest Exam: Positive: Clear to auscultation, Normal air movement Heart Exam: Positive: Normal S1, Normal S2, Rate Normal, Regular Rhythm, Negative: Murmurs, Rubs Abdomen Exam: Positive: Normal bowel sounds, Soft, Negative: Hepatospenomegaly, Tenderness Extremity Exam: Negative: Clubbing, Cyanosis, Edema, Normal pulses, Other, Swelling, Tenderness Vital Signs/I&O Vital Signs Date Time Temp Pulse Resp B/P Pulse Ox O2 Delivery O2 Flow Rate FiO2 05/12/16 11:08 Room Air 05/12/16 09:09 105/61 05/12/16 06:00 97.7 82 18 97 I&O- Last 24 Hours up to 6 AM 05/12/16 05:59 Intake Total 547 ml Output Total 500 ml Balance 47 ml Laboratory Data Labs 24H Laboratory Tests 2 05/11/16 17:10: Bedside Glucose (Misc Panel) 68L 05/11/16 18:03: Bedside Glucose (Misc Panel) 112H 05/11/16 19:51: Bedside Glucose (Misc Panel) 89 05/12/16 06:22: Anion Gap 9, White Blood Count 5.4, Red Blood Count 3.67L, Hemoglobin 13.0, Hematocrit 38.0, Mean Corpuscular Volume 103.4H, Mean Corpuscular Hemoglobin 35.3H, Mean Corpuscular Hemoglobin Concent 34.1, Red Cell Distribution Width 11.5, Platelet Count 163, Neutrophils (%) (Auto) 69.0H, Lymphocytes (%) (Auto) 23.0L, Monocytes (%) (Auto) 5.1H, Eosinophils (%) (Auto) 1.1, Basophils (%) ( Auto) 0.2, Neutrophils # (Auto) 3.7, Lymphocytes # (Auto) 1.2L, Monocytes # ( Auto) 0.3, Eosinophils # (Auto) 0.1, Basophils # (Auto) 0.0, Blood Urea Nitrogen 5L, Creatinine 0.73, Sodium Level 144, Potassium Level 3.8, Chloride Level 110H, Carbon Dioxide Level 25, Calcium Level 8.3L, Glomerular Filtration Rate > 60.0, Large Unclassified Cells # 0.1, Large Unclassified Cells % 1.7 CBC/BMP Laboratory Tests 05/12/16 06:22 Calcium Level 8.3 L, Red Blood Count 3.67 L, Mean Corpuscular Volume 103.4 H, Mean Corpuscular Hemoglobin 35.3 H, Mean Corpuscular Hemoglobin Concent 34.1, Red Cell Distribution Width 11.5, Neutrophils (%) (Auto) 69.0 H, Lymphocytes (% ) (Auto) 23.0 L, Monocytes (%) (Auto) 5.1 H, Eosinophils (%) (Auto) 1.1, Basophils (%) (Auto) 0.2, Neutrophils # (Auto) 3.7, Lymphocytes # (Auto) 1.2 L, Monocytes # (Auto) 0.3, Eosinophils # (Auto) 0.1, Basophils # (Auto) 0.0 FSBS Laboratory Tests Test 05/11/16 17:10 05/11/16 18:03 05/11/16 19:51 Range/Units Bedside Glucose (Misc Panel) 68 112 89 70-105 MG/DL Microbiology Microbiology 05/11/16 Urine Culture, Received Pending YANELI ALICEA MD May 12, 2016 13:00
[2016-05-12 14:00] VITALS: BP 134/73
[2016-05-12] MEDS: PRAMIPEXOLE 1 MG TAB PO SCH (21:15)
[2016-05-12] MEDS: AMITRIPTYLINE 50 MG TAB PO SCH (21:15)
[2016-05-12 22:00] VITALS: BP 118/88
[2016-05-13] MEDS: D5W/0.9% SODIUM CHLORIDE 1,000 ML IV SCH (01:15)
[2016-05-13] MEDS: OXAZEPAM 15 MG CAP PO SCH ×3 (05:52→14:00)
[2016-05-13 06:00] VITALS: BP 109/61
[2016-05-13 07:02] LABS: BASO % 0.8 % (0.0-1.0); EOS # 0.1 K/mm3 (0.0-0.50); EOS % 1.2 % (0.0-3.0); LARGE UNSTAINED CELL # 0.1 K/mm3 (0.0-0.4); LARGE UNSTAINED CELL % 1.3 % (0.0-4.0); LYMPH # 1.2 K/mm3 (1.5-4.5); LYMPH % 17.9 % (24.0-44.0); MEAN CORPUSCULAR HEMOGLOBIN 34.9 pg (27.0-33.0); MEAN CORPUSCULAR HGB CONC 33.8 g/dl (32.0-36.5); MEAN CORPUSCULAR VOLUME 103.3 fl (80.0-96.0); MONO # 0.4 K/mm3 (0.0-0.8); NEUTROPHILS # 4.7 K/mm3 (1.8-7.7); NEUTROPHILS % 72.7 % (36.0-66.0); PLATELET COUNT, AUTOMATED 165 k/mm3 (150-450); RED CELL DISTRIBUTION WIDTH 12.5 % (11.5-14.5); WHITE BLOOD COUNT 6.5 K/mm3 (4.0-10.0)
[2016-05-13 07:19] LABS: ANION GAP 8 MEQ/L (8-16); BLOOD UREA NITROGEN 5 MG/DL (7-18); CALCIUM LEVEL 7.8 MG/DL (8.5-10.1); CARBON DIOXIDE LEVEL 23 MEQ/L (21-32); CHLORIDE LEVEL 111 MEQ/L (98-107); CREATININE FOR GFR 0.76 MG/DL (0.55-1.02); GLOMERULAR FILTRATION RATE > 60.0 (>51); GLUCOSE, FASTING 82 MG/DL (70-105); SODIUM LEVEL 142 MEQ/L (136-145)
[2016-05-13] MEDS: LISINOPRIL 10 MG TAB PO SCH (09:00)
[2016-05-13] MEDS: SENOKOT S TAB PO SCH ×2 (10:05→21:00)
[2016-05-13] MEDS: ENOXAPARIN 40 MG/0.4 ML SYRINGE (J1650) SC SCH (10:05)
[2016-05-13] MEDS: PANTOPRAZOLE 40MG TAB (PROTONIX) PO SCH (10:06)
[2016-05-13] MEDS: THIAMINE 100 MG TAB PO SCH (10:06)
[2016-05-13] MEDS: FOLIC ACID 1 MG TAB PO SCH (10:07)
[2016-05-13] MEDS: PRAMIPEXOLE 1 MG TAB PO SCH ×2 (10:07→21:53)
--- NOTE | 2016-05-13 12:36 | EDDOCDS ---
Physician Documentation [facility] Name: Nirmala Goodson Age: 55 yrs Sex: Female : 1960 Arrival Date: 05/11/2016 Time: 05:11 Bed 2 Private MD: [facility] - Ad[facility] Disposition: 05/11/16 08:24 Hospitalization ordered by Tori Ribeiro for Inpatient Admission. Preliminary diagnosis is Altered mental status, unspecified. - Bed requested for 5 Sofia. - Status is Inpatient Admission. kr3 - Condition is Stable. - Problem is an acute exacerbation. - Symptoms have improved. Historical: - Allergies: PENICILLINS; Amoxicillin; - Home Meds: 1. omeprazole 40 mg Oral cpDR 1 cap once daily 2. alendronate 70 mg oral tab 1 tab once wkly 3. acyclovir cream 5% q3h for cold sores 4. meclizine 25 mg Oral tab 1 tab 3 times per day 5. dicyclomine 20 mg Oral tab 1 tab 4 times per day 6. amitriptyline 100 mg Oral tab 2 tabs once daily hs 7. cetirizine 10 mg oral tab 1 tab once daily 8. pramipexole 0.5 mg oral tab 2 tabs twice a day 9. calcium 600mg/400U 10. lisinopril 10 mg Oral tab 1 tab once daily 11. loperamide 2 mg Oral cap 2 caps twice a day as needed - PMHx: Hypertension; - PSHx: ; Hysterectomy; Sinus Surgery; Tubal ligation; - Social history: Smoking status: unknown if patient ever smoked tobacco. Patient is speech impaired. - Family history: Not pertinent. - : Unable to assess if pt is on anticoagulants. Home medication list is obtained from pill bottles. - Exposure Risk Screening:: None identified. Vital Signs: 05/11 05:23 BP 161 / 93; Pulse 103; Resp 20; Temp 97.5(TE); Pulse Ox 100% on R/A; Weight 64.86 kg / jmv 142.99 lbs (R); Height 5 ft. 3 in. (160.02 cm) (R); Pain 0/10; 06:06 BP 111 / 70 (auto/); ko2 06:08 Pulse 89 MON; Pulse Ox 98% ; ko2 07:11 BP 147 / 72; Pulse 88; Resp 18; Pulse Ox 100% on R/A; kr3 08:05 BP 125 / 67; Pulse 100; Resp 18; Pulse Ox 96% on R/A; kr3 05:23 Body Mass Index 25.33 (64.86 kg, 160.02 cm) carline MDM: 05:54 Consult PFS/PSA/Internal Grinder ordered. may 05:54 Consult PFS/PSA/Internal Grinder: Patient's case requires discussion with on-call david Psychiatrist ordered. 05:54 PSA/PFS to call Nursing Marketing Operations Manager, to enter patient data on [place] [employer] if patient david involuntarily admitted or transferred for SI or HI ordered. 05:54 Confirm accurate psychiatric medication list and times of last dosage ordered. may 05:54 Detain Pt Until Medically/PFS Cleared ordered. may 05:55 Acetaminophen Level Ordered. EDMS 05:55 Basic Metabolic Profile Ordered. EDMS 05:55 Drug Eval Toxicology ED Only Ordered. EDMS 05:55 Ethyl Alcohol (ethanol) Ordered. EDMS 05:55 Liver Profile Ordered. EDMS 05:55 Salicylate Level Ordered. EDMS 05:55 Thyroid Stimulating Hormone Ordered. EDMS 06:10 Medical Records Custodian/Pulse Ox/q 15 min VS ordered. mm11 06:10 Accucheck ordered. mm11 06:10 IV Saline Lock ordered. mm11 06:10 Oxygen at 4L/Min NC or Home dosage ordered. mm11 06:10 Rhythm Strip to chart ordered. mm11 06:10 CBC with Diff Ordered. EDMS 06:10 Cardiac Injury Profile Ordered. EDMS 06:10 Troponin Ordered. EDMS 06:10 Urinalysis Ordered. EDMS 06:10 Urine Culture Ordered. EDMS 06:10 CT Head Without Contrast Ordered. EDMS 06:11 ECG WITH READING ER PHYS+CARDIAG ordered. EDMS 06:12 Chest, 1 View Ordered. EDMS 06:13 LORazepam 2 mg IVP once ordered. mm11 06:21 Fingerstick Blood Sugar Ordered. EDMS 06:51 Venous Blood Gas (large pea green tube on ice) Ordered. EDMS 07:04 Drug Eval Toxicology ED Only Reviewed. mm11 07:04 CBC with Diff Reviewed. mm11 07:04 Cardiac Injury Profile Reviewed. mm11 07:04 Urinalysis Reviewed. mm11 07:04 Venous Blood Gas (large pea green tube on ice) Reviewed. mm11 07:04 Troponin Reviewed. mm11 07:04 Fingerstick Blood Sugar Reviewed. mm11 07:08 Acetaminophen Level Reviewed. mm11 07:08 Basic Metabolic Profile Reviewed. mm11 07:08 Ethyl Alcohol (ethanol) Reviewed. mm11 07:08 Liver Profile Reviewed. mm11 07:08 Salicylate Level Reviewed. mm11 07:08 Thyroid Stimulating Hormone Reviewed. mm11 07:16 BED REQUEST+ADM ordered. EDMS 07:17 LORazepam 2 mg IVP once ordered. mm11 07:19 Oxazepam 30 mg PO once ordered. mm11 07:32 CT Head Without Contrast Reviewed. mm11 07:33 Thiamine 100 mg IVP once ordered. mm11 07:33 D50W 50 ml IVP once; (1 amp) ordered. mm11 08:09 Admission / Observation Status ordered. EDMS 08:10 REGULAR DIET ordered. EDMS 08:17 Financial registration complete. lg 08:17 [facility] Payment Agreement was scanned into [employer] and attached to record. lg 09:11 PROLACTIN Ordered. EDMS 09:50 ED course: i just found out that the pt was transferred to [address] [place] [address]. hospitalist had ml presented and evaluated pt; i am concerned regarding the medical condition of this pt. her altered mental status was not due to alcohol intoxication as level was 0.09. i reviewed chart and am concerned pt had overdose or alcohol dts, or acute respiratory failure. ph was acidotic and elevated pco2 earlier this am. espinoza rodríguez was contacted and my concerns relayed. she will immediately contact hospitalist in charge. mlg. 10:37 T-Sheet-- Draft Copy was scanned into [employer] and attached to record. se 12:12 ECG/EKG was scanned into [employer] and attached to record. gb Administered Medications: 06:20 Drug: LORazepam 2 mg [lorazepam 2 mg/mL injection solution (1 mL)] Route: IVP; Site: ko2 left hand; 07:19 Drug: LORazepam 2 mg [lorazepam 2 mg/mL injection solution (1 mL)] Route: IVP; Site: kr3 left hand; 07:52 Follow up: Response: No significant change. kr3 07:49 Drug: D50W 50 ml [dextrose 50 % in water (D50W) intravenous syringe (50 mL)] Route: kr3 IVP; Site: left hand; 08:06 Follow up: Response: No significant change. kr3 07:51 Drug: Thiamine 100 mg [thiamine HCl (vitamin B1) 100 mg/mL injection solution (1 mL)] kr3 Route: IVP; Site: left hand; 08:06 Follow up: Response: No significant change. kr3 08:48 Not Given (patient confused, uncooperative, agitated): Oxazepam 30 mg PO once kr3 Signatures: Dispatcher [employer] EDMS Davida Moore MD MD ml Jobson, Karen, RN RN mary Garcia, Adeline Fisher, RN RN Ruth Oliveros, Reg Reg gb Mono Ly, Reg Reg lg Nkechi TroncosoRN RN jie3 Adelso Berger, DO mm11 Elli SpencerRN FLORENCIO Galindo, Loni Bella RN ko2 The chart was reviewed and I authenticate all verbal orders and agree with the evaluation and treatment provided.Corrections: (The following items were deleted from the chart) 06:12 05:55 COMPLETE BLOOD COUNT+LAB ordered. EDMS EDMS Attachments: 08:17 [facility] Payment Agreement lg 10:37 T-Sheet-- Draft Copy [facility] 12:12 ECG/EKG Chart Complete MTDD
--- NOTE | 2016-05-13 12:36 | EDDOCDS ---
Nurse's Notes [facility] Name: Nirmala Goodson Age: 55 yrs Sex: Female : 1960 Arrival Date: 05/11/2016 Time: 05:11 Bed 2 Private MD: [facility] Diagnosis: Altered mental status, unspecified Presentation: 05/11 05:21 Presenting complaint: EMS states: Significant other called EMS due to pt not "acting mlc right". SO states pt was "shaky" and altered mental status. pt has slurred speech and is restless. SO states that pt likes to "stay up late, drinking and doing crafts", states pt may have drank 12 beers. Adult Sepsis Screening: Patient has new or worsening altered mentation (1 point). Patient's respiratory rate is less than 22. Systolic blood pressure is greater than 100. Patient has a qSOFA score of 1- Negative Sepsis Screen. Suicide/Homicide risk assessment- Unable to assess, the patient has an altered level of consciousness. Status: Unknown if sales representative electric service or dependent. Transition of care: patient was not received from another setting of care. 05:21 Acuity: RENE Level 3 [facility] 05:21 Method Of Arrival: Ambulance [facility] Triage Assessment: 05:35 General: Appears unkempt, Behavior is restless, pt grabbing at railing and shaky the mlc bed, pt consoled easily. pt unable to sit still . HIV screening NA for this visit Offered previously. The patient is triaged at the bedside. See Assessment in Nurses Notes section of ED record. Neurological: Level of Consciousness is confused, obeys commands, Oriented to person. Respiratory: Airway is patent Respiratory effort is even, unlabored, Respiratory pattern is regular. Derm: Skin is normal. Historical: - Allergies: PENICILLINS; Amoxicillin; - Home Meds: 1. omeprazole 40 mg Oral cpDR 1 cap once daily 2. alendronate 70 mg oral tab 1 tab once wkly 3. acyclovir cream 5% q3h for cold sores 4. meclizine 25 mg Oral tab 1 tab 3 times per day 5. dicyclomine 20 mg Oral tab 1 tab 4 times per day 6. amitriptyline 100 mg Oral tab 2 tabs once daily hs 7. cetirizine 10 mg oral tab 1 tab once daily 8. pramipexole 0.5 mg oral tab 2 tabs twice a day 9. calcium 600mg/400U 10. lisinopril 10 mg Oral tab 1 tab once daily 11. loperamide 2 mg Oral cap 2 caps twice a day as needed - PMHx: Hypertension; - PSHx: ; Hysterectomy; Sinus Surgery; Tubal ligation; - Social history: Smoking status: unknown if patient ever smoked tobacco. Patient is speech impaired. - Family history: Not pertinent. - : Unable to assess if pt is on anticoagulants. Home medication list is obtained from pill bottles. - Exposure Risk Screening:: None identified. Screenin:20 Screening information is obtained from staff. Fall risk: At risk due to apparent kr3 chemical impairment, apparent cognitive impairment, The following interventions are performed due to a positive Fall Risk Screen: Fall Alert bracelet is placed on the patient. Assistance ADL's: unable to assess. Abuse/DV Screen: Unable to Assess. Nutritional screening: Unable to Assess. Advance Directives: Unable to assess Advance Directive status due to pt condition. Assessment: 05:38 General: pt given 0.4mg narcan by EMS, no significant change noted. mlc 05:39 General: Appears distressed, Behavior is anxious, restless. Pain: Denies pain. ko2 Neurological: Level of Consciousness is awake, alert. Cardiovascular: Rhythm is sinus rhythm No ectopy. Respiratory: Airway is patent Respiratory effort is even, unlabored. Derm: Skin is normal. 06:27 General: Appears distressed, Behavior is anxious. Neurological: Level of Consciousness ko2 is awake. Respiratory: Airway is patent Respiratory effort is even, unlabored. Derm: Skin is normal. 07:10 Reassessment: increase agitation, calmed with redirection. High of bed elevated and kr3 patient covered with blankets and patient became calmer. Sitter at bedside. 07:20 Reassessment: continues to be restless, throwing arms and legs all over bed, kr3 redirection unsuccessful, Dr Berger aware and medication given. 07:52 Reassessment: agitation continues and not following directions. Does not open eyes. kr3 Arms and legs all over stretcher. Bleeding from left forearm from old wound that scab came off from, bandaid applied to area. 09:00 Reassessment: agitation continues, thrashing arms and legs all over stretcher, unable kr3 to redirect for even small amount of time. Respiratory: Respiratory effort is even. Derm: Skin is normal, multiple areas of old wounds on arms. 09:46 Reassessment: Vice President Investor Relations Tierney Miller aware of patient condition prior to discharge kr3 from ED. Dr Ribeiro attempted conversation with patient upon discharge from ED to [facility] with no success. . Vital Signs: 05:23 BP 161 / 93; Pulse 103; Resp 20; Temp 97.5(TE); Pulse Ox 100% on R/A; Weight 64.86 kg jm (R); Height 5 ft. 3 in. (160.02 cm) (R); Pain 0/10; 06:06 BP 111 / 70 (auto/); ko2 06:08 Pulse 89 MON; Pulse Ox 98% ; ko2 07:11 BP 147 / 72; Pulse 88; Resp 18; Pulse Ox 100% on R/A; kr3 08:05 BP 125 / 67; Pulse 100; Resp 18; Pulse Ox 96% on R/A; kr3 05:23 Body Mass Index 25.33 (64.86 kg, 160.02 cm) [facility] Vitals: 05:35 Log In Time N/A - ambulance arrival. [facility] ED Course: 05:12 Patient visited by Mai Haddad, Diplomatic Officer. ml3 05:12 Dorota Rodriguez is Private Physician. ml3 05:12 [facility] is Private Physician. ml3 05:12 Loni Cortes,RN is Primary Nurse. ml3 05:12 Patient moved to Waiting ml3 05:12 Patient moved to 2 ml3 05:24 Pt greeted and oriented to ED. Patient advised of names of staff involved in care, [facility] location of call rojas, wait times and NPO status. Patient has correct armband on for positive identification. Placed in gown. Bed in low position. Call light in reach. Side rails up X2. school photograph editor on. Pulse ox on. NIBP on. 05:25 Patient visited by Phil Varghese PCA. jmv 05:27 Triage Initiated mlc 05:37 Maintain field IV. Gauge & site: 22g left hand. [facility] 06:05 Adelso Berger DO is Attending Physician. mm11 06:05 Patient visited by Adelso Berger DO. mm11 06:09 Patient visited by Adelso Berger DO. mm11 06:26 CBC with Diff Sent. ko2 06:26 Cardiac Injury Profile Sent. ko2 06:26 Troponin Sent. ko2 06:26 Urinalysis Sent. ko2 06:27 Patient visited by Loni Cortes RN. ko2 06:27 Urine Culture Sent. ko2 06:27 Ethyl Alcohol (ethanol) Sent. ko2 06:27 Liver Profile Sent. ko2 06:32 Patient visited by Lavinia Simpson PCA. cln 06:32 EKG done. (by ED staff). Reviewed by Adelso Berger DO. cln 07:06 Nkechi Troncoso,RN is Primary Nurse. kr3 07:10 Patient visited by Nkechi Troncoso RN. kr3 07:29 CT Head Without Contrast Returned. EDMS 07:51 Patient visited by Nkechi Troncoso,FLORENCIO. kr3 07:54 The patient / caregiver is instructed regarding the plan of care and ED course. kr3 08:13 Patient name changed from Nirmala\\S\\\\S\\Goodson\\S\\ to Nirmala\\S\\ \\S\\Goodson. EDMS 08:17 [facility] Payment Agreement was scanned into Ray[employer] and attached to record. lg 08:24 Tori Ribeiro is Hospitalizing Provider. mm11 08:59 No procedures done that require assistance. kr3 10:37 T-Sheet-- Draft Copy was scanned into RayV and attached to record. seh 12:12 ECG/EKG was scanned into RayV and attached to record. gb Administered Medications: 06:20 Drug: LORazepam 2 mg [lorazepam 2 mg/mL injection solution (1 mL)] Route: IVP; Site: ko2 left hand; 07:19 Drug: LORazepam 2 mg [lorazepam 2 mg/mL injection solution (1 mL)] Route: IVP; Site: kr3 left hand; 07:52 Follow up: Response: No significant change. kr3 07:49 Drug: D50W 50 ml [dextrose 50 % in water (D50W) intravenous syringe (50 mL)] Route: kr3 IVP; Site: left hand; 08:06 Follow up: Response: No significant change. kr3 07:51 Drug: Thiamine 100 mg [thiamine HCl (vitamin B1) 100 mg/mL injection solution (1 mL)] kr3 Route: IVP; Site: left hand; 08:06 Follow up: Response: No significant change. kr3 08:48 Not Given (patient confused, uncooperative, agitated): Oxazepam 30 mg PO once kr3 Order Results: Lab Order: Acetaminophen Level; SPEC'M 05/11/16 06:21 Test: ACETAMINOPHEN LEVEL; Value: < 2.0; Range: 10.0-30.0; Abnormal: Below low normal; Units: UG/ML; Status: F Lab Order: Basic Metabolic Profile; SPEC'M 05/11/16 06:21 Test: GLUCOSE, FASTING; Value: 66; Range: 70-105; Abnormal: Below low normal; Units: MG/DL; Status: F Test: BLOOD UREA NITROGEN; Value: 6; Range: 7-18; Abnormal: Below low normal; Units: MG/DL; Status: F Test: CREATININE FOR GFR; Value: 0.64; Range: 0.55-1.02; Units: MG/DL; Status: F Test: GLOMERULAR FILTRATION RATE; Value: > 60.0; Range: >51; Status: F Test: SODIUM LEVEL; Value: 138; Range: 136-145; Units: MEQ/L; Status: F Test: POTASSIUM SERUM; Value: 4.2; Range: 3.5-5.1; Units: MEQ/L; Status: F Test: CHLORIDE LEVEL; Value: 102; Range: 98-107; Units: MEQ/L; Status: F Test: CARBON DIOXIDE LEVEL; Value: 24; Range: 21-32; Units: MEQ/L; Status: F Test: ANION GAP; Value: 12; Range: 8-16; Units: MEQ/L; Status: F Test: CALCIUM LEVEL; Value: 8.7; Range: 8.5-10.1; Units: MG/DL; Status: F Test Note: ; Units are mL/min/1.73 m2 Chronic Kidney Disease Staging per NKF: Stage I & II GFR >=60 Normal to Mildly Decreased Stage III GFR 30-59 Moderately Decreased Stage IV GFR 15-29 Severely Decreased Stage V GFR <15 Very Little GFR Left ESRD GFR <15 on [employer] Lab Order: Drug Eval Toxicology ED Only; SPEC'M 05/11/16 06:21 Test: AMPHETAMINES LEVEL URINE; Value: NEGATIVE; Range: NEGATIVE; Status: F Test: BARBITURATES URINE; Value: NEGATIVE; Range: NEGATIVE; Status: F Test: BENZODIAZEPINES URINE; Value: NEGATIVE; Range: NEGATIVE; Status: F Test: CANNABINOIDS URINE; Value: NEGATIVE; Range: NEGATIVE; Status: F Test: COCAINE METABOLITE URINE; Value: NEGATIVE; Range: NEGATIVE; Status: F Test: METHADONE URINE; Value: NEGATIVE; Range: NEGATIVE; Status: F Test: OPIATES URINE; Value: NEGATIVE; Range: NEGATIVE; Status: F Test: TRICYCLIC ANTIDEPRESS URINE; Value: POSITIVE; Range: NEGATIVE; Abnormal: Above high normal; Status: F Test Note: ; ALL PRESUMPTIVE POSITIVE FINDINGS ARE UNCONFIRMED NORMAL VALUES THRESHOLD IN NG/ML AMPHETAMINES 1000 METHAMPHETAMINES 1000 BARBITURATES 300 BENZODIAZEPINES 300 CANNABINOIDS (THC) 50 COCAINE METABOLITE 300 METHADONE 300 OPIATES 300 PHENCYCLIDINE 25 TRICYCLIC ANTIDEPRESSANTS 1000 RESULTS ARE FOR MEDICAL PURPOSES ONLY. ALL URINE SPECIMENS WILL BE SAVED FOR 3 DAYS. IF CONFIRMATION OF A PRESUMPTIVE POSTIVE SCREEN RESULT IS DESIRED, CALL CHEMISTRY ([phone]) AND REQUEST URINE TO BE SENT TO REFERENCE LAB. FOR A LIST OF CLOSELY RELATED COMPOUNDS PLEASE CALL THE LAB. Lab Order: Ethyl Alcohol (ethanol); SPEC'M 05/11/16 06:21 Test: ETHYL ALCOHOL (ETHANOL); Value: 0.092; Range: 0.000-0.010; Abnormal: Above high normal; Units: %; Status: F Lab Order: Liver Profile; SPEC'M 05/11/16 06:21 Test: AST/SGOT; Value: 23; Range: 15-37; Units: U/L; Status: F Test: ALT/SGPT; Value: 20; Range: 12-78; Units: U/L; Status: F Test: ALKALINE PHOSPHATASE; Value: 54; Range: 45-117; Units: U/L; Status: F Test: BILIRUBIN,TOTAL; Value: 0.2; Range: 0.2-1.0; Units: MG/DL; Status: F Test: BILIRUBIN,DIRECT; Value: < 0.1; Range: 0.0-0.2; Units: MG/DL; Status: F Test: TOTAL PROTEIN; Value: 6.6; Range: 6.4-8.2; Units: GM/DL; Status: F Test: ALBUMIN; Value: 3.5; Range: 3.2-5.2; Units: GM/DL; Status: F Test: ALBUMIN/GLOBULIN RATIO; Value: 1.13; Range: 1.00-1.93; Status: F Lab Order: Salicylate Level; SPEC'05/11/16 06:21 Test: SALICYLATE LEVEL; Value: 5.6; Range: 5.0-30.0; Units: MG/DL; Status: F Lab Order: Thyroid Stimulating Hormone; SPEC'M 05/11/16 06:21 Test: THYROID STIMULATING HORMONE; Value: 2.360; Range: 0.358-3.740; Units: uIU/ML; Status: F Lab Order: CBC with Diff; SPEC05/11/16 06:21 Test: WHITE BLOOD COUNT; Value: 6.0; Range: 4.0-10.0; Units: K/mm3; Status: F Test: RED BLOOD COUNT; Value: 4.03; Range: 4.00-5.40; Units: M/mm3; Status: F Test: HEMOGLOBIN; Value: 14.0; Range: 12.0-16.0; Units: g/dl; Status: F Test: HEMATOCRIT; Value: 41.7; Range: 36.0-47.0; Units: %; Status: F Test: MEAN CORPUSCULAR VOLUME; Value: 103.5; Range: 80.0-96.0; Abnormal: Above high normal; Units: fl; Status: F Test: MEAN CORPUSCULAR HEMOGLOBIN; Value: 34.6; Range: 27.0-33.0; Abnormal: Above high normal; Units: pg; Status: F Test: MEAN CORPUSCULAR HGB CONC; Value: 33.4; Range: 32.0-36.5; Units: g/dl; Status: F Test: RED CELL DISTRIBUTION WIDTH; Value: 11.5; Range: 11.5-14.5; Units: %; Status: F Test: PLATELET COUNT, AUTOMATED; Value: 190; Range: 150-450; Units: k/mm3; Status: F Test: NEUTROPHILS %; Value: 61.1; Range: 36.0-66.0; Units: %; Status: F Test: LYMPH %; Value: 30.1; Range: 24.0-44.0; Units: %; Status: F Test: MONO %; Value: 5.0; Range: 0.0-5.0; Units: %; Status: F Test: EOS %; Value: 1.3; Range: 0.0-3.0; Units: %; Status: F Test: BASO %; Value: 0.6; Range: 0.0-1.0; Units: %; Status: F Test: LARGE UNSTAINED CELL %; Value: 1.8; Range: 0.0-4.0; Units: %; Status: F Test: NEUTROPHILS #; Value: 3.7; Range: 1.8-7.7; Units: K/mm3; Status: F Test: LYMPH #; Value: 1.8; Range: 1.5-4.5; Units: K/mm3; Status: F Test: MONO #; Value: 0.3; Range: 0.0-0.8; Units: K/mm3; Status: F Test: EOS #; Value: 0.1; Range: 0.0-0.50; Units: K/mm3; Status: F Test: BASO #; Value: 0.0; Range: 0.0-0.2; Units: K/mm3; Status: F Test: LARGE UNSTAINED CELL #; Value: 0.1; Range: 0.0-0.4; Units: K/mm3; Status: F Lab Order: Cardiac Injury Profile; SPEC'M 05/11/16 06:21 Test: CPK CREATINE PHOSPHOKINASE; Value: 72; Range: 26-192; Units: U/L; Status: F Test: CK-MB VALUE MASS; Value: 3.6; Range: 0.0-3.6; Units: NG/ML; Status: F Test: MB/CK RELATIVE INDEX; Value: 5.00; Range: < OR =4; Abnormal: Above high normal; Status: F Test Note: ; DIAGNOSIS CRITERIA MMB ng/ml Relative Index (RI) NON-AMI < or = 5 N/A [place] > 5 < or = 4 AMI > 5 > 4 Lab Order: Troponin; SPEC'M 05/11/16 06:21 Test: TROPONIN I; Value: < 0.02; Range: < 0.10; Units: NG/ML; Status: F Test Note: ; Troponin I Reference Interval for Siemens Independence LOCI: 99th Percentile= 0.00-0.045 ng/ml Risk Stratification: <= 0.10 ng/ml Decreased Risk for Adverse Clinical Events. 0.10-1.50 ng/ml Increased Risk for Adverse Clinical Events. Evaluation of additional criterion and/or repeat testing in 2-6 hours is suggested to rule out myocardial damage. >= 1.50 ng/ml Indicative of Myocardial Injury. Lab Order: Urinalysis; SPEC'M 05/11/16 06:21 Test: APPEARANCE, URINE; Value: CLEAR; Range: CLEAR; Status: F Test: COLOR, URINE; Value: STRAW; Range: YELLOW; Status: F Test: PH,URINE; Value: 5.0; Range: 5.0-9.0; Units: UNITS; Status: F Test: SPECIFIC GRAVITY URINE AUTO; Value: 1.001; Range: 1.002-1.035; Abnormal: Below low normal; Status: F Test: PROTEIN, URINE AUTO; Value: NEGATIVE; Range: NEGATIVE; Units: mg/dL; Status: F Test: GLUCOSE, URINE (UA) AUTO; Value: NEGATIVE; Range: NEGATIVE; Units: mg/dL; Status: F Test: KETONE, URINE AUTO; Value: NEGATIVE; Range: NEGATIVE; Units: mg/dL; Status: F Test: UROBILINOGEN, URINE AUTO; Value: 0.2; Range: 0.0-2.0; Units: mg/dL; Status: F Test: BILIRUBIN, URINE AUTO; Value: NEGATIVE; Range: NEGATIVE; Status: F Test: NITRITE, URINE AUTO; Value: POSITIVE; Range: NEGATIVE; Status: F Test: LEUKOCYTE ESTERASE, URINE AUTO; Value: TRACE; Range: NEGATIVE; Abnormal: Above high normal; Status: F Test: BLOOD, URINE BLOOD; Value: 1+; Range: NEGATIVE; Abnormal: Above high normal; Status: F Test: WBC, URINE AUTO; Value: 2; Range: 0-3; Units: /HPF; Status: F Test: RBC, URINE AUTO; Value: 0; Range: 0-3; Units: /HPF; Status: F Test: BACTERIA, URINE AUTO; Value: 2+; Range: NEGATIVE; Abnormal: Above high normal; Status: F Test: SQUAMOUS EPITHELIAL CELL UR AU; Value: 0; Range: 0-6; Units: /HPF; Status: F Test: HYALINE CAST, URINE AUTO; Value: 0; Range: 0-1; Units: /LPF; Status: F Lab Order: Fingerstick Blood Sugar; SPEC'M 05/11/16 06:11 Test: BEDSIDE GLUCOSE; Value: 71; Range: 70-105; Units: MG/DL; Status: F Lab Order: Venous Blood Gas (large pea green tube on ice); SPEC'M 05/11/16 06:21 Test: VENOUS PH; Value: 7.271; Range: 7.330-7.430; Abnormal: Below low normal; Units: UNITS; Status: F Test: VENOUS PARTIAL PRESSURE CO2; Value: 59.1; Range: 38.0-50.0; Abnormal: Above high normal; Units: mmHg; Status: F Test: VENOUS PARTIAL PRESSURE O2; Value: 25.9; Range: 30.0-50.0; Abnormal: Below low normal; Units: mmHg; Status: F Test: VENOUS TOTAL CO2; Value: 28.4; Range: 24.0-28.0; Abnormal: Above high normal; Units: MEQ/L; Status: F Test: VENOUS HCO3; Value: 26.6; Range: 23.0-27.0; Units: MEQ/L; Status: F Test: VENOUS BASE EXCESS; Value: -1.5; Range: -2.0-2.0; Status: F Test: VENOUS STANDARD HCO3; Value: 21.9; Units: MEQ/L; Status: F Test: VENOUS O2 SATURATION; Value: 42.0; Range: 60.0-80.0; Abnormal: Below low normal; Units: %; Status: F Radiology Order: CT Head Without Contrast Test: CT Head Without Contrast REASON FOR EXAMINATION: AMS; ; CLINICAL HISTORY: Altered mental status.; TECHNIQUE: Multiple axial brain CT scan sections were obtained from base to vertex without contrast a; dministration.; COMMENTS:; The study shows normal configuration of sella turcica. There are no intra or extra-axial collections.; There is no mass effect or midline shift. There is no evidence of hematoma formation. No hydrocephal; us is present. No abnormal calcifications are noted.; No significant abnormalities are seen either in the posterior fossa or supratentorial compartment.; The sinuses and mastoid air cells are patent.; IMPRESSION:; No evidence of acute intracranial pathology.; Thank you for your kind referral of this patient.; ; Outcome: 07:54 CT [facility]. [facility] 08[facility]24 Decision to Hospitalize by Provider. [facility] 08:59 Discharge Assessment: patient administered narcotics - yes. Patient was admitted to the [address] or transferred to another facility. The following High Risk Discharge criteria are identified: Yes, Admitted to Med/Surg accompanied by tech, via stretcher, with chart. Condition: unchanged. Property :Personal belongings accompany Pt. 09:07 Patient left the ED. [facility] Signatures: Dispatcher [employer] EDMS Ruth Albert, Reg Reg gb Mono Ly, Reg Reg lg Mai Haddad, Diplomatic Officer Unit ml3 Nkechi Troncoso,RN RN kr3 Adelso Berger, DO mm11 Elli Spencer,RN RN Loni Flores RN RN ko2 Lavinia Simpson, CONSTRUCTION QUALITY CONTROL MANAGER CONSTRUCTION QUALITY CONTROL MANAGER Rama Mcclure Jose, CONSTRUCTION QUALITY CONTROL MANAGER CONSTRUCTION QUALITY CONTROL MANAGER jmv Corrections: (The following items were deleted from the chart) 07:14 07:11 BP 111 / 70; Pulse 88bpm; Resp 16bpm; Pulse Ox 100% RA; 3 [facility] Chart Complete MTDD
--- NOTE | 2016-05-13 12:36 | EDDOCDS ---
Physician Documentation [facility] Name: Nirmala Goodson Age: 55 yrs Sex: Female : 1960 Arrival Date: 05/11/2016 Time: 05:11 Bed 2 Private MD: [facility] - Adults Disposition: 05/11/16 08:24 Hospitalization ordered by Tori Ribeiro for Inpatient Admission. Preliminary diagnosis is Altered mental status, unspecified. - Bed requested for 5 Sofia. - Status is Inpatient Admission. kr3 - Condition is Stable. - Problem is an acute exacerbation. - Symptoms have improved. Historical: - Allergies: PENICILLINS; Amoxicillin; - Home Meds: 1. omeprazole 40 mg Oral cpDR 1 cap once daily 2. alendronate 70 mg oral tab 1 tab once wkly 3. acyclovir cream 5% q3h for cold sores 4. meclizine 25 mg Oral tab 1 tab 3 times per day 5. dicyclomine 20 mg Oral tab 1 tab 4 times per day 6. amitriptyline 100 mg Oral tab 2 tabs once daily hs 7. cetirizine 10 mg oral tab 1 tab once daily 8. pramipexole 0.5 mg oral tab 2 tabs twice a day 9. calcium 600mg/400U 10. lisinopril 10 mg Oral tab 1 tab once daily 11. loperamide 2 mg Oral cap 2 caps twice a day as needed - PMHx: Hypertension; - PSHx: ; Hysterectomy; Sinus Surgery; Tubal ligation; - Social history: Smoking status: unknown if patient ever smoked tobacco. Patient is speech impaired. - Family history: Not pertinent. - : Unable to assess if pt is on anticoagulants. Home medication list is obtained from pill bottles. - Exposure Risk Screening:: None identified. Vital Signs: 05/11 05:23 BP 161 / 93; Pulse 103; Resp 20; Temp 97.5(TE); Pulse Ox 100% on R/A; Weight 64.86 kg / jmv 142.99 lbs (R); Height 5 ft. 3 in. (160.02 cm) (R); Pain 0/10; 06:06 BP 111 / 70 (auto/); ko2 06:08 Pulse 89 MON; Pulse Ox 98% ; ko2 07:11 BP 147 / 72; Pulse 88; Resp 18; Pulse Ox 100% on R/A; kr3 08:05 BP 125 / 67; Pulse 100; Resp 18; Pulse Ox 96% on R/A; kr3 05:23 Body Mass Index 25.33 (64.86 kg, 160.02 cm) carline MDM: 05:54 Consult PFS/PSA/Manager Wealth Management ordered. may 05:54 Consult PFS/PSA/Manager Wealth Management: Patient's case requires discussion with on-call david Psychiatrist ordered. 05:54 PSA/PFS to call Nursing Apartment Community Manager, to enter patient data on [place] [employer] if patient david involuntarily admitted or transferred for SI or HI ordered. 05:54 Confirm accurate psychiatric medication list and times of last dosage ordered. may 05:54 Detain Pt Until Medically/PFS Cleared ordered. may 05:55 Acetaminophen Level Ordered. EDMS 05:55 Basic Metabolic Profile Ordered. EDMS 05:55 Drug Eval Toxicology ED Only Ordered. EDMS 05:55 Ethyl Alcohol (ethanol) Ordered. EDMS 05:55 Liver Profile Ordered. EDMS 05:55 Salicylate Level Ordered. EDMS 05:55 Thyroid Stimulating Hormone Ordered. EDMS 06:10 Afterschool/Pulse Ox/q 15 min VS ordered. mm11 06:10 Accucheck ordered. mm11 06:10 IV Saline Lock ordered. mm11 06:10 Oxygen at 4L/Min NC or Home dosage ordered. mm11 06:10 Rhythm Strip to chart ordered. mm11 06:10 CBC with Diff Ordered. EDMS 06:10 Cardiac Injury Profile Ordered. EDMS 06:10 Troponin Ordered. EDMS 06:10 Urinalysis Ordered. EDMS 06:10 Urine Culture Ordered. EDMS 06:10 CT Head Without Contrast Ordered. EDMS 06:11 ECG WITH READING ER PHYS+CARDIAG ordered. EDMS 06:12 Chest, 1 View Ordered. EDMS 06:13 LORazepam 2 mg IVP once ordered. mm11 06:21 Fingerstick Blood Sugar Ordered. EDMS 06:51 Venous Blood Gas (large pea green tube on ice) Ordered. EDMS 07:04 Drug Eval Toxicology ED Only Reviewed. mm11 07:04 CBC with Diff Reviewed. mm11 07:04 Cardiac Injury Profile Reviewed. mm11 07:04 Urinalysis Reviewed. mm11 07:04 Venous Blood Gas (large pea green tube on ice) Reviewed. mm11 07:04 Troponin Reviewed. mm11 07:04 Fingerstick Blood Sugar Reviewed. mm11 07:08 Acetaminophen Level Reviewed. mm11 07:08 Basic Metabolic Profile Reviewed. mm11 07:08 Ethyl Alcohol (ethanol) Reviewed. mm11 07:08 Liver Profile Reviewed. mm11 07:08 Salicylate Level Reviewed. mm11 07:08 Thyroid Stimulating Hormone Reviewed. mm11 07:16 BED REQUEST+ADM ordered. EDMS 07:17 LORazepam 2 mg IVP once ordered. mm11 07:19 Oxazepam 30 mg PO once ordered. mm11 07:32 CT Head Without Contrast Reviewed. mm11 07:33 Thiamine 100 mg IVP once ordered. mm11 07:33 D50W 50 ml IVP once; (1 amp) ordered. mm11 08:09 Admission / Observation Status ordered. EDMS 08:10 REGULAR DIET ordered. EDMS 08:17 Financial registration complete. lg 08:17 [facility] Payment Agreement was scanned into Quikly and attached to record. lg 09:11 PROLACTIN Ordered. EDMS 09:50 ED course: i just found out that the pt was transferred to [address] [place] [id number]. hospitalist had ml presented and evaluated pt; i am concerned regarding the medical condition of this pt. her altered mental status was not due to alcohol intoxication as level was 0.09. i reviewed chart and am concerned pt had overdose or alcohol dts, or acute respiratory failure. ph was acidotic and elevated pco2 earlier this am. espinoza rodríguez was contacted and my concerns relayed. she will immediately contact hospitalist in charge. mlg. 10:37 T-Sheet-- Draft Copy was scanned into Quikly and attached to record. se 12:12 ECG/EKG was scanned into [employer]ik[employer] and attached to record. gb Administered Medications: 06:20 Drug: LORazepam 2 mg [lorazepam 2 mg/mL injection solution (1 mL)] Route: IVP; Site: ko2 left hand; 07:19 Drug: LORazepam 2 mg [lorazepam 2 mg/mL injection solution (1 mL)] Route: IVP; Site: kr3 left hand; 07:52 Follow up: Response: No significant change. kr3 07:49 Drug: D50W 50 ml [dextrose 50 % in water (D50W) intravenous syringe (50 mL)] Route: kr3 IVP; Site: left hand; 08:06 Follow up: Response: No significant change. kr3 07:51 Drug: Thiamine 100 mg [thiamine HCl (vitamin B1) 100 mg/mL injection solution (1 mL)] kr3 Route: IVP; Site: left hand; 08:06 Follow up: Response: No significant change. kr3 08:48 Not Given (patient confused, uncooperative, agitated): Oxazepam 30 mg PO once kr3 Signatures: Dispatcher [employer] EDMS Davida Moore MD MD ml Jobson, Karen, RN RN mary Garcia, Adeline Fisher, RN RN Ruth Oliveros, Reg Reg gb Mono Ly, Reg Reg lg Nkechi TroncosoRN RN jie3 Adeslo Berger, DO mm11 Elli SpencerRN FLORENCIO Galindo, Loni Bella RN ko2 The chart was reviewed and I authenticate all verbal orders and agree with the evaluation and treatment provided.Corrections: (The following items were deleted from the chart) 06:12 05:55 COMPLETE BLOOD COUNT+LAB ordered. EDMS EDMS Attachments: 08:17 [facility] Payment Agreement lg 10:37 T-Sheet-- Draft Copy [facility] 12:12 ECG/EKG Chart Complete MTDD
[2016-05-13 14:00] VITALS: BP 135/79
[2016-05-13] MEDS ORDERED: OXAZEPAM 10 MG CAP PO PRN (16:15)
--- NOTE | 2016-05-13 16:31 | IPN ---
DATE: 05/13/2016 SUBJECTIVE: Today, the patient tells me that she is feeling well. She has no complaints. No chest pain, shortness of breath, fevers, chills, nausea, vomiting, or diarrhea. OBJECTIVE: VITAL SIGNS: Temperature 96.7, pulse 84, respiratory rate 18, blood pressure 109/61, oxygen saturation 93% on room air. GENERAL: She is a pleasant, middle-aged, female sitting up in bed. She does not appear to be in any acute distress. NEUROLOGIC: Cranial nerves II-XII are grossly intact. HEENT: She has moist mucous membranes. No elevation of central venous pressure. CARDIOVASCULAR: S1, S2, regular. RESPIRATORY: Clear. ABDOMEN: Benign. EXTREMITIES: No clubbing, cyanosis, or edema. She has numerous tattoos. LABORATORY STUDIES: WBC 6.5, hemoglobin 12.4, hematocrit 36.7, platelet count 165. Chemistry panel: Sodium 142, potassium 4.0, chloride 111, bicarbonate 23, BUN 5, creatinine 0.7. The patient had a TSH within normal limits and a prolactin level which is actually low. Urine toxicology is positive for ethyl alcohol 0.09 as well as tricyclic antidepressants. MICROBIOLOGY: A urine was positive for E. coli. However, urinalysis was not suggestive of this and the patient has no symptoms. IMAGING STUDIES: The patient did have an MRI of the brain which revealed minimal small vessel ischemic disease and a chest x-ray which revealed no active disease. ASSESSMENT AND PLAN: This is a 55-year-old female status post toxic metabolic encephalopathy. 1. Toxic metabolic encephalopathy. The patient presented confused and agitated. She did have an elevated alcohol level. I suspect that she was intoxicated with alcohol at the time of her presentation. She was also reportedly inhaling glue for many long hours in an enclosed space which may have been a contributing factor. There is also the possibility that the patient may have been abusing illicit substances not picked up by her toxicology screen which she does not admit. At the time being, her MRI is negative. Her symptoms have completely resolved. She is doing quite well. 2. Depression. The patient is on amitriptyline. 3. Hypertension. The patient is on lisinopril. 4. Alcohol abuse. The patient is on Serax. At this time, I will discontinue it as she does not seem to significantly require it. She is on thiamine and folic acid. 5. Gastroesophageal reflux disease. The patient is on Protonix. 6. Restless leg syndrome. The patient is on amitriptyline. 7. Deep vein thrombosis (DVT) prophylaxis. The patient is on Lovenox. DISPOSITION: I suspect that the patient may be able to be discharged within the next 24-48 hours depending on her pending physical therapy.
[2016-05-13 18:00] VITALS: BP 148/81
[2016-05-13] MEDS: AMITRIPTYLINE 50 MG TAB PO SCH (21:53)
[2016-05-13 22:00] VITALS: BP 162/82
[2016-05-14 06:00] VITALS: BP 156/84
[2016-05-14 06:19] LABS: BASO % 0.4 % (0.0-1.0); EOS # 0.1 K/mm3 (0.0-0.50); EOS % 1.3 % (0.0-3.0); LARGE UNSTAINED CELL # 0.1 K/mm3 (0.0-0.4); LARGE UNSTAINED CELL % 1.5 % (0.0-4.0); LYMPH # 1.1 K/mm3 (1.5-4.5); LYMPH % 19.1 % (24.0-44.0); MEAN CORPUSCULAR HEMOGLOBIN 34.8 pg (27.0-33.0); MEAN CORPUSCULAR HGB CONC 33.3 g/dl (32.0-36.5); MEAN CORPUSCULAR VOLUME 104.4 fl (80.0-96.0); MONO # 0.3 K/mm3 (0.0-0.8); MONO % 5.5 % (0.0-5.0); NEUTROPHILS # 4.3 K/mm3 (1.8-7.7); NEUTROPHILS % 72.1 % (36.0-66.0); PLATELET COUNT, AUTOMATED 172 k/mm3 (150-450); RED CELL DISTRIBUTION WIDTH 11.4 % (11.5-14.5)
[2016-05-14 06:30] LABS: ANION GAP 9 MEQ/L (8-16); BLOOD UREA NITROGEN 4 MG/DL (7-18); CARBON DIOXIDE LEVEL 23 MEQ/L (21-32); CHLORIDE LEVEL 113 MEQ/L (98-107); CREATININE FOR GFR 0.67 MG/DL (0.55-1.02); GLOMERULAR FILTRATION RATE > 60.0 (>51); GLUCOSE, FASTING 79 MG/DL (70-105); POTASSIUM SERUM 3.7 MEQ/L (3.5-5.1); SODIUM LEVEL 145 MEQ/L (136-145)
[2016-05-14] MEDS ORDERED: FOLI1TAB2 PO (07:05)
[2016-05-14] MEDS ORDERED: THIA100TA PO (07:05)
[2016-05-14] MEDS ORDERED: MULT1TAB8 PO (07:05)
[2016-05-14] MEDS: PRAMIPEXOLE 1 MG TAB PO SCH (08:09)
[2016-05-14] MEDS: THIAMINE 100 MG TAB PO SCH (08:09)
[2016-05-14] MEDS: FOLIC ACID 1 MG TAB PO SCH (08:09)
[2016-05-14 08:10] VITALS: BP 147/91
[2016-05-14] MEDS: LISINOPRIL 10 MG TAB PO SCH (08:10)
[2016-05-14] MEDS: ENOXAPARIN 40 MG/0.4 ML SYRINGE (J1650) SC SCH (08:10)
[2016-05-14] MEDS: SENOKOT S TAB PO SCH (08:10)
[2016-05-14] MEDS: PANTOPRAZOLE 40MG TAB (PROTONIX) PO SCH (08:10)
--- NOTE | 2016-05-14 18:53 | DSES ---
DATE OF ADMISSION: 05/11/2016 DATE OF DISCHARGE: 05/14/2016 DISCHARGE DIAGNOSIS: Toxic metabolic encephalopathy. SECONDARY DIAGNOSES: 1. Alcohol intoxication. 2. Depression. 3. Hypertension. 4. Alcohol abuse. 5. Gastroesophageal reflux disease. 6. Restless leg syndrome. HOSPITAL COURSE: The patient is a 55-year-old female who was admitted on 05/11/2016. At that time she was not acting right. She had been working with a glue gun for long hour periods of time and drinking more aggressively in the last several weeks and not sleeping. She was reportedly agitated and not following directions. Patient presented to the emergency room and received Serax in the emergency room and was essentially sleeping secondary to medication at the time of her initial evaluation by the hospitalist service. She was admitted to the hospital and monitored. The patient essentially woke up and had no recollection of the day or the previous day. Her symptoms had completely resolved. At this time the patient is awake, alert, and oriented times three. She has had no complaints, no fevers, no chills, no chest pain or shortness of breath, nausea or vomiting, lightheadedness or dizziness. Her symptoms have spontaneously resolved. OBJECTIVE: VITAL SIGNS: Temperature 96.9, pulse 76, respiratory rate 18, blood pressure 156/84, oxygen saturation is 99% on room air. GENERAL: She is a somewhat disheveled, middle-aged, female sitting up in bed. She is in no acute distress. HEENT: Cranial nerves 2 through 12 are grossly intact. She has moist mucous membranes. Numerous tattoos. CARDIOVASCULAR: S1, S2, regular. RESPIRATORY: Clear. No knuckle rigidity ABDOMEN: Benign. EXTREMITIES: There is no cyanosis, clubbing, or edema. NEUROLOGIC EXAM: Completely nonfocal. LABORATORY STUDIES TODAY: WBC 6.0, hemoglobin 13, hematocrit 39.0, platelet count 172. Chemistry panel: Sodium 145, potassium 3.7, chloride 113, bicarbonate 23, BUN 4, creatinine 0.6. Non-arterial blood gas from the time from the time of admission is essentially unremarkable. Toxicology was positive for tricyclic antidepressants and ethyl alcohol. Urine culture was positive but there was no symptoms and a urinanalysis (UA) was essentially negative. The patient did undergo an MRI of the brain which revealed minimal small vessel ischemic disease. She had a chest x-ray which revealed no active disease and a CT scan of the head which revealed no evidence of acute intracranial pathology. ASSESSMENT AND PLAN: This is a 55-year-old female status-post toxic metabolic encephalopathy. 1. Toxic metabolic encephaoplathy. Patient initially presented confused and agitated. She did have an elevated alcohol level and it is possible that she was intoxicated with alcohol however, she had been using a glue gun in an enclosed space for much longer hours than she had previously done which may have had an adverse effect on her. There is also the possibility that she may have abused an elicit substance which did not picking tech on our toxicology and she is not admitting to at this time. Whatever the etiology with time and observation her symptoms did spontaneously completely resolve. She is doing quite well. She has not had any fevers, neck stiffness, chest pain, shortness of breath, or other concerning symptoms. She has had workup including an MRI which has been essentially negative. She has been advised to limit her alcohol intake and to avoid any toxic ingestions or using the glue gun in a poorly ventilated space for prolonged periods of time. 2. Restless leg syndrome. Patient is on amitriptyline. 3. Hypertension. The patient is on Lisinopril. Her blood pressure is controlled. 4. Alcohol abuse. The patient is not requiring any Serax at this time however she has reportedly been abusing alcohol quite significantly of late. Cessation counseling has been offered and she has been started on thiamine, folic acid, and a multivitamin. 5. Gastroesophageal reflux disease. The patient is on Protonix. 6. Deep venous thrombosis (DVT) prophylaxis. Patient has been on Lovenox. DISPOSITION: The patient is being discharged home. She is to followup with her primary care physician (PCP) within 7 day. Her activity is as prior to admission. Her diet is as prior to admission. She is to have caution with alcohol intake and to use her glue gun only in a well ventilated space and not for long periods of time. She is advised to return to the emergency room (ER) should her symptoms worsen. MEDICATIONS AT THE TIME OF DISCHARGE: - folic acid 1 mg daily - multivitamin one tablet daily - thiamine 100 mg daily - acyclovir 5% cream topical as needed for cold sores - Fosamax 70 mg once a week - amitriptyline 200 mg at night - calcium with vitamin D 600-400 twice a day - Zyrtec 10 mg daily - dicyclomine 20 mg four times a day - estradiol 0.75 mg transdermally every week - lisinopril 10 mg daily - meclizine 25 mg three times a day - omeprazole 40 mg daily - pramipexole 1 mg twice a day Greater than 30 minutes spent organizing disposition.
== END 2016-05-14 10:13 | disposition home or self-care (01) ==
LOC: M ED 05:11 → M ED INP 08:03 → M MS5PR 09:10 → M MSPAV 05-13 17:56
PROVIDERS: ADMIT Internal Medicine Nephrology; ATTEND Internal Medicine Nephrology
DX: T51.0X1A Toxic effect of ethanol, accidental (unintentional), initial encounter (principal); T57.8X1A Toxic effect of other specified inorganic substances, accidental (unintentional), initial encounter; G92 Toxic encephalopathy; F10.129 Alcohol abuse with intoxication, unspecified; F32.9 Major depressive disorder, single episode, unspecified; I10 Essential (primary) hypertension; K21.9 Gastro-esophageal reflux disease without esophagitis; G25.81 Restless legs syndrome; E16.2 Hypoglycemia, unspecified; M81.0 Age-related osteoporosis without current pathological fracture; K58.9 Irritable bowel syndrome, unspecified; B00.9 Herpesviral infection, unspecified; J44.9 Chronic obstructive pulmonary disease, unspecified; J30.9 Allergic rhinitis, unspecified; F17.210 Nicotine dependence, cigarettes, uncomplicated; Z79.899 Other long term (current) drug therapy; Z88.1 Allergy status to other antibiotic agents; Z88.0 Allergy status to penicillin; Z88.2 Allergy status to sulfonamides
CPT/HCPCS: 36415; 70450; 70551; 71010; 80048; 80076; 80306; 81001; 82550; 82553; 82803; 84146; 84443; 84484; 85025; 87088; 87186; 93005; 93041; 96372; 96374; 96376; 97161; 97530; 99285; G0378; G0480; J1650; J2060; J3411

== ENCOUNTER → 2016-11-17 | Outpatient (CLI) | payer MEDICARE, MEDICAID ==
[~2016-11-17] MED LIST changes: +AMIT100TA PO; -CALC600T21 PO; +CALC600T60 PO; +CALC600T68 PO; +DICY20TA11 PO; +ESTR1DIS2 TD; +FOLI1TAB4 PO; -LEVA750T PO; +LEVA750T7 PO; +LISI10TA4 PO; -MUCI600T34 PO; +MUCI600T37 PO; +MULT1TAB8 PO; -NAPR500T2 PO; +NAPR500T3 PO; +OMEP40CA2 PO; +PRAM0.5T4 PO; +THIA100TA PO
[2016-11-17 10:06] LABS: BASO % 0.8 % (0.0-1.0); EOS # 0.1 K/mm3 (0.0-0.50); EOS % 2.1 % (0.0-3.0); LYMPH # 2.4 K/mm3 (1.5-4.5); LYMPH % 35.8 % (24.0-44.0); MEAN CORPUSCULAR HEMOGLOBIN 34.4 pg (27.0-33.0); MEAN CORPUSCULAR HGB CONC 34.6 g/dl (32.0-36.5); MEAN CORPUSCULAR VOLUME 99.4 fl (80.0-96.0); MONO # 0.4 K/mm3 (0.0-0.8); MONO % 6.1 % (0.0-5.0); NEUTROPHILS # 3.4 K/mm3 (1.8-7.7); NEUTROPHILS % 53.6 % (36.0-66.0); RED CELL DISTRIBUTION WIDTH 12.9 % (11.5-14.5); WHITE BLOOD COUNT 6.3 K/mm3 (4.0-10.0)
[2016-11-17 10:47] LABS: ALBUMIN 3.7 GM/DL (3.2-5.2); ALBUMIN/GLOBULIN RATIO 1.19 (1.00-1.93); ALKALINE PHOSPHATASE 71 U/L (45-117); ALT/SGPT 17 U/L (12-78); ANION GAP 10 MEQ/L (8-16); AST/SGOT 16 U/L (15-37); BILIRUBIN,TOTAL 0.3 MG/DL (0.2-1.0); BLOOD UREA NITROGEN 7 MG/DL (7-18); CALCIUM LEVEL 9.1 MG/DL (8.5-10.1); CARBON DIOXIDE LEVEL 28 MEQ/L (21-32); CHLORIDE LEVEL 100 MEQ/L (98-107); CHOLESTEROL LEVEL 206 MG/DL (<200); CREATININE FOR GFR 0.71 MG/DL (0.55-1.02); GLOMERULAR FILTRATION RATE > 60.0 (>51); GLUCOSE, FASTING 66 MG/DL (70-105); MAGNESIUM LEVEL 2.3 MG/DL (1.8-2.4); POTASSIUM SERUM 4.1 MEQ/L (3.5-5.1); SODIUM LEVEL 138 MEQ/L (136-145); TOTAL PROTEIN 6.8 GM/DL (6.4-8.2); TRIGLYCERIDES LEVEL 292 MG/DL (<150)
[2016-11-17 10:53] LABS: VITAMIN B12 LEVEL 709 PG/ML
[2016-11-17 10:54] LABS: FOLATE 16.2 NG/ML
== END ==
LOC: M WUC 08:16
PROVIDERS: ATTEND Nurse Practitioner Adult Health
DX: J44.9 Chronic obstructive pulmonary disease, unspecified (principal); K58.0 Irritable bowel syndrome with diarrhea; E16.2 Hypoglycemia, unspecified; M81.0 Age-related osteoporosis without current pathological fracture

== ENCOUNTER → 2017-02-06 | Outpatient (CLI) | payer MEDICARE, MEDICAID ==
[2017-02-06 13:33] LABS: BASO % 0.6 % (0.0-1.0); EOS # 0.1 10^3/uL (0.0-0.50); EOS % 1.2 % (0.0-3.0); IMMATURE GRANULOCYTE % 0.1 % (0-0); LYMPH # 1.7 10^3/uL (1.5-4.5); LYMPH % 22.9 % (24.0-44.0); MEAN CORPUSCULAR HEMOGLOBIN 34.8 pg (27.0-33.0); MEAN CORPUSCULAR HGB CONC 33.9 g/dl (32.0-36.5); MEAN CORPUSCULAR VOLUME 102.6 fl (80.0-96.0); MONO # 0.6 10^3/uL (0.0-0.8); MONO % 7.6 % (0.0-5.0); NEUTROPHILS # 4.9 10^3/uL (1.8-7.7); NEUTROPHILS % 67.6 % (36.0-66.0); RED CELL DISTRIBUTION WIDTH 12.3 % (11.5-14.5); WHITE BLOOD COUNT 7.2 10^3/uL (4.0-10.0)
[2017-02-06 13:58] LABS: ALBUMIN 3.8 GM/DL (3.2-5.2); ALBUMIN/GLOBULIN RATIO 1.31 (1.00-1.93); ALKALINE PHOSPHATASE 47 U/L (45-117); ALT/SGPT 19 U/L (12-78); ANION GAP 7 MEQ/L (8-16); AST/SGOT 18 U/L (15-37); BILIRUBIN,TOTAL 0.4 MG/DL (0.2-1.0); BLOOD UREA NITROGEN 7 MG/DL (7-18); CALCIUM LEVEL 8.5 MG/DL (8.5-10.1); CARBON DIOXIDE LEVEL 27 MEQ/L (21-32); CHLORIDE LEVEL 106 MEQ/L (98-107); CHOLESTEROL LEVEL 195 MG/DL (<200); CREATININE FOR GFR 0.76 MG/DL (0.55-1.02); GLOMERULAR FILTRATION RATE > 60.0 (>51); GLUCOSE, FASTING 76 MG/DL (70-105); POTASSIUM SERUM 4.9 MEQ/L (3.5-5.1); SODIUM LEVEL 140 MEQ/L (136-145); TOTAL PROTEIN 6.7 GM/DL (6.4-8.2); TRIGLYCERIDES LEVEL 66 MG/DL (<150)
== END ==
LOC: M WUC 09:13
PROVIDERS: ATTEND Nurse Practitioner Adult Health
DX: J44.9 Chronic obstructive pulmonary disease, unspecified (principal); E16.2 Hypoglycemia, unspecified; K58.0 Irritable bowel syndrome with diarrhea

== ENCOUNTER → 2017-09-08 | Outpatient (CLI) | payer MEDICARE, MEDICAID | LOC: M RAD 08:54 | DX: M50.222 Other cervical disc displacement at C5-C6 level (principal); R20.0 Anesthesia of skin; M79.602 Pain in left arm; M47.812 Spondylosis without myelopathy or radiculopathy, cervical region | CPT/HCPCS: 72141 ==

== ENCOUNTER → 2017-10-29 | Emergency (ER) | payer MEDICARE, MEDICAID | END | disposition home or self-care (01) | LOC: M ED 08:00 | DX: R53.81 Other malaise (principal); Z72.0 Tobacco use; R51 Headache; R42 Dizziness and giddiness; I10 Essential (primary) hypertension; J44.9 Chronic obstructive pulmonary disease, unspecified; K21.9 Gastro-esophageal reflux disease without esophagitis; K52.9 Noninfective gastroenteritis and colitis, unspecified; K58.9 Irritable bowel syndrome, unspecified; Z87.440 Personal history of urinary (tract) infections; M54.9 Dorsalgia, unspecified; M81.0 Age-related osteoporosis without current pathological fracture; F41.9 Anxiety disorder, unspecified; F32.9 Major depressive disorder, single episode, unspecified; Z87.01 Personal history of pneumonia (recurrent); Z79.899 Other long term (current) drug therapy; Z88.0 Allergy status to penicillin; Z88.1 Allergy status to other antibiotic agents; Z88.8 Allergy status to other drugs, medicaments and biological substances | CPT/HCPCS: 99283 ==

== ENCOUNTER 2018-02-03 10:29 | Emergency (ER) | payer MEDICARE, MEDICAID ==
[2018-02-03] MEDS: NS 1,000 ML IV (11:00)
[2018-02-03 11:24] LABS: BASO % 0.6 % (0.0-1.0); EOS # 0.2 10^3/uL (0.0-0.50); EOS % 2.4 % (0.0-3.0); HEMATOCRIT 42.3 % (36.0-47.0); HEMOGLOBIN 14.5 g/dl (12.0-15.5); IMMATURE GRANULOCYTE % 1.1 % (0-3.0); LYMPH # 1.1 10^3/uL (1.5-4.5); LYMPH % 15.8 % (24.0-44.0); MEAN CORPUSCULAR HEMOGLOBIN 34.9 pg (27.0-33.0); MEAN CORPUSCULAR HGB CONC 34.3 g/dl (32.0-36.5); MEAN CORPUSCULAR VOLUME 101.7 fl (80.0-96.0); MONO # 0.5 10^3/uL (0.0-0.8); MONO % 7.5 % (0.0-5.0); NEUTROPHILS # 5.2 10^3/uL (1.8-7.7); NEUTROPHILS % 72.6 % (36.0-66.0); PLATELET COUNT, AUTOMATED 209 10^3/uL (150-450); RED BLOOD COUNT 4.16 10^6/uL (4.00-5.40); RED CELL DISTRIBUTION WIDTH 11.5 % (11.5-14.5); WHITE BLOOD COUNT 7.2 10^3/uL (4.0-10.0)
[2018-02-03 11:27] LABS: BEDSIDE GLUCOSE 124 MG/DL (70-105)
[2018-02-03 11:34] LABS: VENOUS BASE EXCESS -1.1 (-2.0-2.0); VENOUS HCO3 23.5 MEQ/L (23.0-27.0); VENOUS O2 SATURATION 96.7 % (60.0-80.0); VENOUS PARTIAL PRESSURE CO2 39.3 mmHg (38.0-50.0); VENOUS PARTIAL PRESSURE O2 82.4 mmHg (30.0-50.0); VENOUS PH 7.395 UNITS (7.330-7.430); VENOUS STANDARD HCO3 23.5 MEQ/L; VENOUS TOTAL CO2 24.7 MEQ/L (24.0-28.0)
[2018-02-03 12:02] LABS: AMPHETAMINES LEVEL URINE NEGATIVE (NEGATIVE); BARBITURATES URINE NEGATIVE (NEGATIVE); BENZODIAZEPINES URINE NEGATIVE (NEGATIVE); CANNABINOIDS URINE POSITIVE (NEGATIVE); COCAINE METABOLITE URINE NEGATIVE (NEGATIVE); METHADONE URINE NEGATIVE (NEGATIVE); OPIATES URINE NEGATIVE (NEGATIVE); PHENCYCLIDINE URINE NEGATIVE (NEGATIVE)
[2018-02-03 12:08] LABS: AMMONIA 34 uMOL/L (<32)
[2018-02-03 12:25] LABS: OSMOLALITY SERUM 286 MOSM/KG (275-295)
[2018-02-03 12:37] LABS: ACETAMINOPHEN LEVEL 5.8 UG/ML (10.0-30.0); ALKALINE PHOSPHATASE 48 U/L (45-117); ALT/SGPT 16 U/L (12-78); ANION GAP 10 MEQ/L (8-16); AST/SGOT 15 U/L (7-37); BILIRUBIN,DIRECT < 0.1 MG/DL (0.0-0.2); BILIRUBIN,TOTAL 0.4 MG/DL (0.2-1.0); BLOOD UREA NITROGEN 6 MG/DL (7-18); CALCIUM LEVEL 6.9 MG/DL (8.5-10.1); CARBON DIOXIDE LEVEL 19 MEQ/L (21-32); CHLORIDE LEVEL 117 MEQ/L (98-107); CPK CREATINE PHOSPHOKINASE 50 U/L (26-192); CREATININE FOR GFR 0.53 MG/DL (0.55-1.30); ETHYL ALCOHOL (ETHANOL) < 0.003 % (0.000-0.010); GLOMERULAR FILTRATION RATE > 60.0 (>51); GLUCOSE, FASTING 97 MG/DL (70-100); POTASSIUM SERUM 3.7 MEQ/L (3.5-5.1); SALICYLATE LEVEL 3.8 MG/DL (5.0-30.0); SODIUM LEVEL 146 MEQ/L (136-145); THYROID STIMULATING HORMONE 0.788 uIU/ML (0.358-3.740); TOTAL PROTEIN 5.5 GM/DL (6.4-8.2); TROPONIN I < 0.02 NG/ML (< 0.10)
== END 2018-02-03 15:02 | disposition home or self-care (01) ==
LOC: M ED 10:29
DX: S09.90XA Unspecified injury of head, initial encounter (principal); W22.8XXA Striking against or struck by other objects, initial encounter; Y92.013 Bedroom of single-family (private) house as the place of occurrence of the external cause; I10 Essential (primary) hypertension; J44.9 Chronic obstructive pulmonary disease, unspecified; K21.9 Gastro-esophageal reflux disease without esophagitis; F10.11 Alcohol abuse, in remission; Z79.899 Other long term (current) drug therapy; Z88.0 Allergy status to penicillin; Z88.1 Allergy status to other antibiotic agents; Z88.2 Allergy status to sulfonamides; Z88.8 Allergy status to other drugs, medicaments and biological substances
CPT/HCPCS: 71045

== ENCOUNTER → 2019-07-10 | Outpatient (CLI) | payer MEDICARE, MEDICAID ==
[~2019-07-10] MED LIST changes: +CALC1TAB8 PO; -CALC600T68 PO; +FOLI1TAB11 PO; -FOLI1TAB4 PO; -MECL-68 PO; +MECL1TAB31 PO; +NAPR-885 PO; -NAPR500T3 PO; -OMEP40CA2 PO; +OMEP40CA97 PO; -PEPC1TAB4 PO; +PEPC1TAB5 PO; -PRAM0.5T4 PO; +PRAM0.5T7 PO; +ZYRT10CA5 PO; -ZYRT10TA2 PO
--- NOTE | 2019-07-11 07:25 | REP ---
LEFT RIB SERIES: Five views including PA chest. HISTORY: Contusion. COPD with accessory patient. Pain in the upper middle ribs. FINDINGS: PA chest x-ray shows no evidence of pneumothorax or hydrothorax. Mediastinum is not widened. No definite infiltrate. There is right apical linear scarring which is improved in appearance from the February 03, 2018 study. Multiple views of the left rib cage show diffuse osteopenia. There are fractures involving the left posterior 4th and 5th ribs. these two ribs are fractured in their anterolateral segments as well. An anterior fracture is seen in the left 6th rib. A posterior 3rd rib fracture is seen. A posterior 6th and 7th rib fracture is visible on oblique radiographs. IMPRESSION: Multiple left-sided rib fractures involving ribs #3 through ribs #7 as above. The left 4th and 5th ribs are fractured in two places. Minimal plate-like atelectasis left base. No evidence of pneumothorax. Electronically Signed by Tyler Chirinos MD 07/11/2019 10:50 A
== END ==
LOC: M WUC 15:10
PROVIDERS: ATTEND Physician Assistant
DX: J44.1 Chronic obstructive pulmonary disease with (acute) exacerbation (principal)

== ENCOUNTER → 2020-06-14 | Outpatient (REF) | payer MEDICARE, MEDICAID ==
[~2020-06-14] MED LIST changes: +LISI10TA22 PO; -LISI10TA4 PO
[2020-06-14 12:06] LABS: BASO % 0.5 % (0.0-1.0); EOS # 0.1 10^3/uL (0.0-0.5); EOS % 1.3 % (0.0-3.0); HEMATOCRIT 43.4 % (36.0-47.0); HEMOGLOBIN 14.3 g/dl (12.0-15.5); LYMPH # 2.2 10^3/uL (1.5-5.0); LYMPH % 33.8 % (24.0-44.0); MEAN CORPUSCULAR HEMOGLOBIN 33.3 pg (27.0-33.0); MEAN CORPUSCULAR HGB CONC 32.9 g/dl (32.0-36.5); MEAN CORPUSCULAR VOLUME 100.9 fl (80.0-96.0); MONO # 0.4 10^3/uL (0.0-0.8); MONO % 6.3 % (0.0-5.0); NEUTROPHILS # 3.7 10^3/uL (1.5-8.5); NEUTROPHILS % 57.6 % (36.0-66.0); PLATELET COUNT, AUTOMATED 191 10^3/uL (150-450); WHITE BLOOD COUNT 6.4 10^3/uL (4.0-10.0)
[2020-06-14 12:37] LABS: ALBUMIN 3.8 GM/DL (3.2-5.2); ALT/SGPT 18 U/L (12-78); BILIRUBIN,TOTAL 0.3 MG/DL (0.2-1.0); BLOOD UREA NITROGEN 12 MG/DL (7-18); CALCIUM LEVEL 9.2 MG/DL (8.8-10.2); CARBON DIOXIDE LEVEL 29 MEQ/L (21-32); CHLORIDE LEVEL 104 MEQ/L (98-107); CHOLESTEROL LEVEL 237 MG/DL (<200); CHOLESTEROL RISK RATIO 3.646 (<5); CREATININE FOR GFR 0.96 MG/DL (0.55-1.30); FREE T4 0.85 NG/DL (0.76-1.46); GLOMERULAR FILTRATION RATE > 60.0 (>45); GLUCOSE, FASTING 91 MG/DL (70-100); HDL CHOLESTEROL 65 MG/DL (>40); LDL CHOLESTEROL 155 MG/DL (<100); NON-HDL-C 172 MG/DL; POTASSIUM SERUM 4.3 MEQ/L (3.5-5.1); SODIUM LEVEL 139 MEQ/L (136-145); TOTAL PROTEIN 6.9 GM/DL (6.4-8.2); TRIGLYCERIDES LEVEL 85 MG/DL (<150)
[2020-06-14 12:38] LABS: TOTAL 25(OH) VITAMIN D 17.4 NG/ML (30.0-100.0)
== END ==
LOC: M LAB REF 11:39
PROVIDERS: ATTEND Physician Assistant
DX: R63.4 Abnormal weight loss (principal); I27.21 Secondary pulmonary arterial hypertension; E55.9 Vitamin D deficiency, unspecified; Z79.899 Other long term (current) drug therapy

== ENCOUNTER → 2020-06-27 | Outpatient (REF) | payer MEDICARE, MEDICAID ==
[2020-06-27 17:17] LABS: C REACTIVE PROTEIN QUANTITATIV 0.89 MG/DL (0.00-0.30); RHEUMATOID FACTOR QUANT < 10.0 IU/ML (<15.0)
[2020-06-27 17:28] LABS: VITAMIN B12 LEVEL 532 PG/ML (247-911)
[2020-06-29 23:06] LABS: ANA (HEP2) Negative (.)
== END ==
LOC: M LAB REF 16:31
PROVIDERS: ATTEND Physician Assistant
DX: E53.8 Deficiency of other specified B group vitamins (principal); M12.9 Arthropathy, unspecified

== ENCOUNTER → 2020-07-05 | Outpatient (CLI) | payer MEDICARE, MEDICAID ==
--- NOTE | 2020-07-05 14:59 | REP ---
INDICATION: PAIN COMPARISON: None. TECHNIQUE: AP and frog-lateral views of the right hip FINDINGS: Generalized age-related degenerative changes include subtle increased sclerosis to the acetabulum with minimal joint space narrowing. No further overt osteoarthritic or significant degenerative changes are appreciated. No evidence for acute or healed injury. Surrounding soft tissues are normal. IMPRESSION: Mild arthritic changes. <Electronically signed by Refugio Bradshaw > 07/05/20 [id number]
== END ==
LOC: M WUC 14:31
PROVIDERS: ATTEND Physician Assistant
DX: M16.11 Unilateral primary osteoarthritis, right hip (principal)

== ENCOUNTER → 2020-07-13 | Outpatient (CLI) | payer MEDICARE, MEDICAID ==
--- NOTE | 2020-07-13 14:48 | DEXAMM ---
INDICATION: M81.0 AGE RELATED OSTEOPOROSIS. COMPARISON: 01/18/2013 as well as other prior exams. TECHNIQUE: Bone density was measured using dual-energy x-ray absorptiometry (DEXA). FINDINGS: AP SPINE L1-L4 BMD 1.120 g/cm2 Young Adult T-Score -0.5 Age Matched Z-Score 0.8. LT FEMUR, TOTAL BMD 0.710 g/cm2 Young Adult T-Score -2.4 Age Matched Z-Score -1.4. LT NECK BMD 0.726 g/cm2 Young Adult T-Score -2.2 Age Matched Z-Score -1.0. RT FEMUR, TOTAL BMD 0.685 g/cm2 Young Adult T-Score -2.6 Age Matched Z-Score -1.6. RT NECK BMD 0.660 g/cm2 Young Adult T-Score -2.7 Age Matched Z-Score -1.5. IMPRESSION: There is normal bone density of the spine. There is low bone density of the left hip. There is osteoporosis of the right hip. The density of the spine has increased 18.9% since the initial exam on 06/24/2006. The density of the spine increased 11.1% since most recent exam on 01/18/2013. The density of the left hip has decreased 4.7% since initial exam on 06/24/2006. The density of the left hip has decreased 8.5% since most recent exam on 01/18/2013. The density of the right hip has decreased 6.7% since the initial exam on 06/24/2006. The density of the right hip has decreased 7.3% since the most recent exam on 01/18/2013. FOLLOW-UP: Recommendation for the next bone density exam: 2 years. <Electronically signed by Phill Bell > 07/13/20 [id number]
--- NOTE | 2020-07-13 14:51 | REPMRS ---
Patient History The patient states she has not had a clinical breast exam in over a year. Patient is postmenopausal and had first child at age 30. Family history of unknown cancer at age 50 or over in maternal uncle, unknown cancer at age 50 or over in maternal uncle. Digital Woman Screen Mammo: July 13, 2020 - Exam #: [id number] Bilateral CC and MLO view(s) were taken. Technologist: Leigha Porter, Technologist Prior study comparison: January 18, 2013, bilateral bilat screen digital mammo, performed at [facility] ([facility]). April 16, 2010, bilateral screening mammogram, performed at [facility] ([facility]). April 03, 2009, bilateral screening mammogram, performed at [facility] ([facility]). FINDINGS: The breast tissue is heterogeneously dense. This may lower the sensitivity of mammography. The Volpara volumetric breast density category is: C. There is a moderate amount of heterogeneously dense fibroglandular tissue which is fairly symmetric. There is no interval development of dominant mass, architectural distortion, or grouped microcalcification typical of malignancy. There has been no change in the appearance of the mammogram from the prior studies. 3-D tomosynthesis shows no additional findings. Assessment: BI-RADS/ACR category 1 mammogram. Negative Mammogram. Recommendation Routine screening mammogram of both breasts in 1 year (for women over age 40). This patient's [facility] Lifetime Breast Cancer RIsk is estimated at 9.1 %. This mammogram was interpreted with the aid of an FDA-approved computer-aided dectection system. Electronically Signed By: Rg Chirinos MD 07/13/20 [id number]
== END ==
LOC: M WHC 13:41
PROVIDERS: ATTEND Physician Assistant
DX: Z12.31 Encounter for screening mammogram for malignant neoplasm of breast (principal); M81.0 Age-related osteoporosis without current pathological fracture; M85.852 Other specified disorders of bone density and structure, left thigh

== ENCOUNTER → 2020-07-24 | Outpatient (REF) | payer MEDICARE, MEDICAID | LOC: M LAB REF 19:03 | PROVIDERS: ATTEND Physician Assistant | DX: Z12.4 Encounter for screening for malignant neoplasm of cervix (principal) | CPT/HCPCS: 87624; G0123 ==

== ENCOUNTER → 2020-08-06 | Outpatient (CLI) | payer MEDICARE, MEDICAID | LOC: M WUC 12:09 | PROVIDERS: ATTEND Physician Assistant Medical | DX: G40.89 Other seizures (principal) ==

== ENCOUNTER 2020-08-13 15:09 | Emergency (ER) | payer MEDICARE, MEDICAID ==
[~2020-08-13] VITALS: Ht 157.5 cm; Wt 49.4 kg
--- NOTE | 2020-08-13 16:07 | REP ---
INDICATION: TRAUMA COMPARISON: None. TECHNIQUE: Four views right elbow. FINDINGS: There is no evidence of acute fracture, dislocation, or intrinsic bone disease. IMPRESSION: No fracture or dislocation. <Electronically signed by Phill Bell > 08/13/20 [id number]
--- NOTE | 2020-08-13 16:07 | REP ---
INDICATION: TRAUMA. COMPARISON: None. TECHNIQUE: Five views lumbosacral spine. FINDINGS: There is no compression fracture. There is normal alignment and lumbar lordosis. There is mild diffuse spurring. There is slight disc space narrowing with subchondral sclerosis at L1-2. There is moderate narrowing at L4-5 with subchondral sclerosis. There is slight narrowing at L3-4. There is sclerosis and spurring at the posterior facet joints of L4-5 and L5-S1. Posterior elements are intact. There is mild curvature toward the right. IMPRESSION: No fracture or dislocation. Degenerative changes as above. <Electronically signed by Phill Bell > 08/13/20 [id number]
[2020-08-13] MEDS ORDERED: KETOROLAC 60MG 2ML VIAL IM ONE (20:30)
[2020-08-13] MEDS ORDERED: methocarbamoL 750 MG TAB PO ONE (20:30)
[2020-08-13] MEDS ORDERED: ROBA750T4 PO (20:34)
[2020-08-13] MEDS ORDERED: KETO10TAB PO (20:35)
[2020-08-13] MEDS ORDERED: LIDOCAINE 5% (LIDODERM) PATCH TD ONE (20:35)
[2020-08-13 20:57] VITALS: BP 174/81
[2020-08-14] MEDS ORDERED: **NOTE PATIENT COMMENT** MISC XX SCH (09:00)
== END 2020-08-13 21:00 | disposition home or self-care (01) ==
LOC: M ED 15:09
DX: M51.37 Other intervertebral disc degeneration, lumbosacral region (principal); M54.5 Low back pain; M25.521 Pain in right elbow; W01.0XXA Fall on same level from slipping, tripping and stumbling without subsequent striking against object, initial encounter; Y92.59 Other trade areas as the place of occurrence of the external cause; Y93.9 Activity, unspecified; Y99.9 Unspecified external cause status; J44.9 Chronic obstructive pulmonary disease, unspecified; E11.649 Type 2 diabetes mellitus with hypoglycemia without coma; M19.90 Unspecified osteoarthritis, unspecified site; F17.200 Nicotine dependence, unspecified, uncomplicated; Z79.899 Other long term (current) drug therapy; Z88.0 Allergy status to penicillin; Z88.2 Allergy status to sulfonamides; Z88.8 Allergy status to other drugs, medicaments and biological substances
CPT/HCPCS: 72110; 73080; 96372; 99283; J1885

== ENCOUNTER → 2020-08-31 | Outpatient (CLI) | payer MEDICARE, MEDICAID ==
[~2020-08-31] MED LIST changes: +KETO10TAB PO; +ROBA750T4 PO
--- NOTE | 2020-08-31 13:13 | REPVR ---
PROCEDURE INFORMATION: Exam: MR Lumbar Spine Without Contrast Exam date and time: 08/31/2020 9:51 AM Age: 59 years old Clinical indication: Low back pain; Additional info: Lbp TECHNIQUE: Imaging protocol: Multiplanar magnetic resonance images of the lumbar spine without intravenous contrast. COMPARISON: CR Spine. Lumbosacral, complete 08/13/2020 3:32 PM FINDINGS: Vertebrae: No acute compression fracture is seen. There is mild retrolisthesis of L1 on L2, L2 on L3, and L3 on L4. There is mild anterolisthesis of L4 on L5. Spinal cord: The conus medullaris terminates at the L1 level. There is no evidence of arachnoiditis or cauda equina compression. L1-L2: There is minimal diffuse circumferential disc bulging and mild facet arthropathy. There is no significant spinal canal or neural foraminal stenosis. L2-L3: There is mild diffuse circumferential disc bulging, thickening of the ligamentum flavum, and facet arthropathy. This is causing minimal spinal canal stenosis, mild right neural foraminal narrowing, and minimal left neural foraminal narrowing. L3-L4: There is moderate diffuse circumferential disc bulging with a central annular fissure. Facet arthropathy and thickening of the ligamentum flavum is also present. This is causing mild spinal canal stenosis, moderate narrowing of the subarticular recesses, and mild bilateral neural foraminal narrowing. L4-L5: There is marked diffuse circumferential disc bulging, severe facet arthropathy, and thickening of the ligamentum flavum. This is causing moderate spinal canal stenosis, severe narrowing of the right subarticular recess, moderate narrowing of the left subarticular recess, severe right neural foraminal narrowing, and mild left neural foraminal narrowing. L5-S1: There is mild diffuse circumferential disc bulging with a superimposed small central disc protrusion. Severe facet arthropathy is also present. There is no significant spinal canal or neural foraminal stenosis. Sacrum/coccyx: Marked bone marrow edema is present within the sacrum, compatible with acute/subacute sacral insufficiency fractures. There is deformity of the S2 vertebra due to a horizontally oriented insufficiency fracture. Soft tissues: Unremarkable. IMPRESSION: 1. Acute/subacute sacral insufficiency fractures 2. Chronic degenerative changes of the lumbar spine as discussed above Electronically signed by: Sohan Castillo On 08/31/2020 13:13:24 PM
== END ==
LOC: M PLARAD 08:17
PROVIDERS: ATTEND Orthopaedic Surgery
DX: M54.5 Low back pain (principal)

== ENCOUNTER → 2020-12-10 | Outpatient (CLI) | payer MEDICARE, MEDICAID ==
[~2020-12-10] MED LIST changes: +OMEP40CA4 PO; -OMEP40CA97 PO
== END ==
LOC: M WUC 14:48
PROVIDERS: ATTEND Physician Assistant Medical
DX: R56.9 Unspecified convulsions (principal)

== ENCOUNTER → 2020-12-31 | Outpatient (CLI) | payer MEDICARE, MEDICAID | LOC: M WUC 14:02 | PROVIDERS: ATTEND Physician Assistant Medical | DX: R56.9 Unspecified convulsions (principal) ==

== ENCOUNTER → 2021-01-11 | Outpatient (CLI) | payer MEDICARE, MEDICAID ==
[~2021-01-11] MED LIST changes: +ALBU8.5H; +ALBU83IN; +ATOR1TAB19; +DOXE10CA; +DULO1CAP6; +GABA-282 PO; +HYDR50TA70; +LEVE10003 PO; +MAGN400T35; +MECL-58; +MIDO5TA; +OMEP-218; +PRAM1.5T2; +STIO1AER; +SYMB16INH; +TRAZ1TAB14 PO; +VITA200016
== END ==
LOC: M LABSMTC 11:07
PROVIDERS: ATTEND Anesthesiology
DX: Z01.812 Encounter for preprocedural laboratory examination (principal); Z20.822 Contact with and (suspected) exposure to COVID-19

== ENCOUNTER 2021-01-16 12:13 | Day surgery (SDC) | payer MEDICARE, MEDICAID ==
[~2021-01-16] VITALS: Ht 157.5 cm; Wt 49.0 kg
[~2021-01-16 12:13] MED LIST changes: +NS 1,000 ML IV SCH
[2021-01-16] MEDS ORDERED: LIDOCAINE 2% 100MG/5ML SDV (FOR ANES.) As Ordered ONE (13:47)
[2021-01-16] MEDS ORDERED: propofoL 200 MG/20 ML VIAL As Ordered ONE (13:48)
--- NOTE | 2021-01-16 14:08 | ROOR ---
Patient Name: Nirmala Goodson Procedure Date: 01/16/2021 1:54 PM Date of : 1960 Age: 60 Room: [facility] Gender: Female Note Status: Finalized Procedure: Colonoscopy Indications: Screening for colorectal malignant neoplasm Providers: DO James iPchardo MD: Gilmer Mcnulty Requesting Provider: Medicines: Propofol per Anesthesia Complications: No immediate complications. Procedure: Pre-Anesthesia Assessment: - Prior to the procedure, a History and Physical was performed, and patient medications and allergies were reviewed. The patient is competent. The risks and benefits of the procedure and the sedation options and risks were discussed with the patient. All questions were answered and informed consent was obtained. Patient identification and proposed procedure were verified by the physician, the nurse, the inspector watch assembly and the instrument and control technician in the endoscopy suite. Mental Status Examination: alert and oriented. Airway Examination: normal oropharyngeal airway and neck mobility. Respiratory Examination: clear to auscultation. CV Examination: normal. Prophylactic Antibiotics: The patient does not require prophylactic antibiotics. Prior Anticoagulants: The patient has taken no previous anticoagulant or antiplatelet agents. ASA Grade Assessment: II - A patient with mild systemic disease. After reviewing the risks and benefits, the patient was deemed in satisfactory condition to undergo the procedure. The anesthesia plan was to use monitored anesthesia care (MAC). Immediately prior to administration of medications, the patient was re-assessed for adequacy to receive sedatives. The heart rate, respiratory rate, oxygen saturations, blood pressure, adequacy of pulmonary ventilation, and response to care were monitored throughout the procedure. The physical status of the patient was re-assessed after the procedure. The Colonoscope was introduced through the anus and advanced to the cecum, identified by appendiceal orifice and ileocecal valve. The colonoscopy was performed without difficulty. The patient tolerated the procedure well. Findings: Non-bleeding internal hemorrhoids were found during retroflexion. The hemorrhoids were Grade I (internal hemorrhoids that do not prolapse). Impression: - Non-bleeding internal hemorrhoids. - No specimens collected. Recommendation: - Patient has a contact number available for emergencies. The signs and symptoms of potential delayed complications were discussed with the patient. Return to normal activities tomorrow. Written discharge instructions were provided to the patient. - Repeat colonoscopy in 5-10 years for screening purposes. - Return to my office PRN. Procedure Code(s): --- Professional --- G0121, Colorectal cancer screening; colonoscopy on individual not meeting criteria for high risk Diagnosis Code(s): --- Professional --- Z12.11, Encounter for screening for malignant neoplasm of colon K64.0, First degree hemorrhoids CPT copyright 2019 [employer]. All rights reserved. The codes documented in this report are preliminary and upon edi developer review may be revised to meet current compliance requirements. Phill Carter DO 01/16/2021 2:07:16 PM Electronically signed by Phill Carter DO Number of Addenda: 0 Note Initiated On: 01/16/2021 1:54 PM Estimated Blood Loss: Estimated blood loss: none.
[2021-01-16 14:35] VITALS: BP 125/73
== END 2021-01-16 14:36 | disposition home or self-care (01) ==
LOC: M OPP 12:13
PROVIDERS: ATTEND Surgery
DX: Z12.11 Encounter for screening for malignant neoplasm of colon (principal); K64.0 First degree hemorrhoids; Z79.899 Other long term (current) drug therapy

== ENCOUNTER 2021-05-29 02:09 | Inpatient (IN) | payer OTHER, MEDICAID ==
[~2021-05-29] VITALS: Ht 162.6 cm; Wt 50.0 kg
[~2021-05-29 02:09] MED LIST changes: -ALBU8.5H; +ALBU8.5H INH; -ALBU83IN; +ALBU83IN PO; -ATOR1TAB19; +ATOR1TAB19 PO; -CALC1TAB8 PO; +CALC600T67 PO; -DICY20TA11 PO; +DICY20TA20 PO; -DOXE10CA; +DOXE10CA PO; -DULO1CAP6; +DULO1CAP6 PO; -MAGN400T35; +MAGN400T35 PO; -MECL-58; +MECL-58 PO; -NS 1,000 ML IV SCH; +OMEP-173 PO; -OMEP-218; -STIO1AER; +STIO1AER PO; -SYMB16INH; +SYMB16INH PO
[2021-05-29] MEDS: COMBIVENT RESPIMAT 100-20MCG INHALER 4GM INH SCH ×3 (03:00→03:37)
[2021-05-29] MEDS ORDERED: ACETAMINOPHEN TAB 650MG DOSE (2X325MG) PO ONE (03:00)
[2021-05-29 03:09] LABS: ABG BASE EXCESS -2.8 (-2.0-2.0); ABG HCO3 19.5 MEQ/L (22.0-26.0); ABG PARTIAL PRESSURE O2 90.8 mmHg (75.0-100.0); ABG STANDARD HCO3 22.1 MEQ/L (22.0-26.0); ABG TOTAL CO2 20.4 MEQ/L (23.0-31.0); ABG pH (ARTERIAL) 7.461 UNITS (7.350-7.450)
[2021-05-29 03:15] LABS: BASO % 0.2 % (0.0-1.0); HEMATOCRIT 41.7 % (36.0-47.0); HEMOGLOBIN 14.4 g/dl (12.0-15.5); LYMPH # 0.7 10^3/uL (1.5-5.0); LYMPH % 6.2 % (24.0-44.0); MEAN CORPUSCULAR HGB CONC 34.5 g/dl (32.0-36.5); MEAN CORPUSCULAR VOLUME 92.7 fl (80.0-96.0); MONO # 1.3 10^3/uL (0.0-0.8); MONO % 10.6 % (2.0-8.0); NEUTROPHILS # 9.7 10^3/uL (1.5-8.5); NEUTROPHILS % 81.6 % (36.0-66.0); PLATELET COUNT, AUTOMATED 141 10^3/uL (150-450); WHITE BLOOD COUNT 11.8 10^3/uL (4.0-10.0)
[2021-05-29 03:31] LABS: ALBUMIN 3.3 GM/DL (3.2-5.2); ALT/SGPT 24 U/L (12-78); BILIRUBIN,DIRECT 0.1 MG/DL (0.0-0.2); BILIRUBIN,TOTAL 0.3 MG/DL (0.2-1.0); BLOOD UREA NITROGEN 21 MG/DL (7-18); CALCIUM LEVEL 8.7 MG/DL (8.8-10.2); CARBON DIOXIDE LEVEL 24 MEQ/L (21-32); CHLORIDE LEVEL 100 MEQ/L (98-107); CREATININE FOR GFR 0.86 MG/DL (0.55-1.30); GLOMERULAR FILTRATION RATE > 60.0 (>45); GLUCOSE, FASTING 122 MG/DL (70-100); POTASSIUM SERUM 3.4 MEQ/L (3.5-5.1); SODIUM LEVEL 134 MEQ/L (136-145); TOTAL PROTEIN 7.5 GM/DL (6.4-8.2)
[2021-05-29 03:33] LABS: CK-MB VALUE MASS < 1.0 NG/ML (<3.6); CPK CREATINE PHOSPHOKINASE 46 U/L (26-192); MB/CK RELATIVE INDEX 2.17 (< OR =4)
[2021-05-29] MEDS ORDERED: ISOVUE-370 76% 100ML VIAL As Ordered ONE (03:49)
[2021-05-29] MEDS ORDERED: LEVALBUTEROL HFA 45MCG/ACT 15 GM INHALER INH PRN (07:40)
[2021-05-29] MEDS ORDERED: POTASSIUM CHLORIDE 10MEQ SR TABLET PO ONE (07:45)
[2021-05-29] MEDS ORDERED: LEVE500T5 PO (08:14)
[2021-05-29] MEDS ORDERED: ASPI81TA26 PO (08:22)
[2021-05-29] MEDS ORDERED: CETI-24 PO (08:22)
[2021-05-29] MEDS ORDERED: PRAM1.5T2 PO (08:22)
[2021-05-29] MEDS ORDERED: D3 H10002 PO (08:22)
[2021-05-29] MEDS ORDERED: MIDO5TA PO (08:22)
[2021-05-29] MEDS ORDERED: HOME MED LIST COMPLETE! XX SCH (08:25)
[2021-05-29 08:49] LABS: INR 0.93; PROTHROMBIN TIME 12.9 SECONDS (12.7-14.5)
[2021-05-29 08:50] LABS: PARTIAL THROMBOPLASTIN TIME 56.9 SECONDS (25.9-37.0)
[2021-05-29 08:52] LABS: D-DIMER QUANT 1645.36 ng/ml (<500)
[2021-05-29] MEDS: THIAMINE 100 MG TAB PO SCH (09:00)
[2021-05-29] MEDS: FOLIC ACID 1 MG TAB PO SCH (09:00)
[2021-05-29] MEDS: NICOTINE 21MG/24HR 1 EA TRANSDERMAL TD SCH (09:00)
[2021-05-29] MEDS: MECLIZINE 25 MG TABLET PO SCH (09:00)
[2021-05-29] MEDS: PRAMIPEXOLE 1 MG TAB PO SCH ×2 (09:00→20:01)
[2021-05-29 09:09] LABS: C REACTIVE PROTEIN QUANTITATIV 12.5 MG/DL (0.00-0.30)
[2021-05-29] MEDS: dexameTHASONE 4 MG/ML 1ML VIAL (J1100 PER 1MG) IV SCH (09:21)
[2021-05-29] MEDS: LEVALBUTEROL HFA 45MCG/ACT 15 GM INHALER INH SCH ×4 (09:21→20:27)
[2021-05-29] MEDS ORDERED: REMDESIVIR 200 MG in NS 250 ML IV ONE (11:00)
[2021-05-29] MEDS ORDERED: DICYCLOMINE 10 MG CAP PO PRN (11:10)
[2021-05-29] MEDS ORDERED: PILL CUTTER 1 EACH XX PRN (11:40)
[2021-05-29] MEDS: MULTIVITAMINS/MINERALS THERAP 1 TAB PO SCH (11:53)
[2021-05-29] MEDS: ASPIRIN 81MG ENTERIC TABLET PO SCH (11:53)
[2021-05-29] MEDS: OMEPRAZOLE 20MG CAP PO SCH (11:53)
[2021-05-29] MEDS: ENOXAPARIN 30MG/0.3ML SYRINGE (J1650 PER 10MG) SC SCH ×2 (11:53→20:11)
[2021-05-29] MEDS: ATORVASTATIN 10 MG TAB PO SCH (11:53)
[2021-05-29] MEDS: MAGNESIUM OXIDE 400MG TAB (MAG-OX) PO SCH (11:53)
[2021-05-29] MEDS: CETIRIZINE (ZyrTEC) 10 MG TAB PO SCH (11:53)
[2021-05-29] MEDS: DULoxetine 30MG CAPSULE (CYMBALTA) PO SCH (11:53)
[2021-05-29] MEDS: levETIRAcetam 250MG TABLET (KEPPRA) PO SCH ×2 (11:55→20:02)
[2021-05-29] MEDS: MIDODRINE 5 MG TAB PO SCH ×2 (11:56→14:44)
[2021-05-29] MEDS ORDERED: SODIUM CHLORIDE 0.9% INJ 10 ML SYR IV ONE (12:00)
[2021-05-29] MEDS ORDERED: ACETAMINOPHEN TAB 650MG DOSE (2X325MG) PO PRN (15:00)
[2021-05-29 15:24] VITALS: BP 131/71
[2021-05-29] MEDS: LORazepam 2 MG TAB PO PRN ×3 (15:24→20:02)
[2021-05-29] MEDS: GABAPENTIN 300 MG CAP PO SCH ×2 (15:24→20:02)
[2021-05-29 20:00] VITALS: BP 110/31
[2021-05-29] MEDS: traZODone 50 MG TAB PO SCH (20:02)
[2021-05-29] MEDS ORDERED: NS 500 ML IV ONE (21:25)
[2021-05-29] MEDS ORDERED: IPRATROPIUM 0.02% SOLN 0.5MG 2.5ML NEB NEB ONE (22:00)
[2021-05-29 22:17] LABS: VENOUS BASE EXCESS -4.5 (-2.0-2.0); VENOUS HCO3 20.4 MEQ/L (23.0-27.0); VENOUS O2 SATURATION 94.6 % (60.0-80.0); VENOUS PARTIAL PRESSURE CO2 37.1 mmHg (38.0-50.0); VENOUS PARTIAL PRESSURE O2 81.2 mmHg (30.0-50.0); VENOUS PH 7.358 UNITS (7.330-7.430); VENOUS STANDARD HCO3 20.7 MEQ/L; VENOUS TOTAL CO2 21.5 MEQ/L (24.0-28.0)
[2021-05-29 23:19] LABS: BLOOD UREA NITROGEN 24 MG/DL (7-18); CALCIUM LEVEL 8.5 MG/DL (8.8-10.2); CARBON DIOXIDE LEVEL 23 MEQ/L (21-32); CHLORIDE LEVEL 111 MEQ/L (98-107); CREATININE FOR GFR 0.65 MG/DL (0.55-1.30); ETHYL ALCOHOL (ETHANOL) < 0.003 % (0.000-0.010); GLOMERULAR FILTRATION RATE > 60.0 (>45); GLUCOSE, FASTING 143 MG/DL (70-100); MAGNESIUM LEVEL 2.3 MG/DL (1.8-2.4); POTASSIUM SERUM 4.7 MEQ/L (3.5-5.1); SODIUM LEVEL 142 MEQ/L (136-145); VITAMIN B12 LEVEL 408 PG/ML (247-911)
[2021-05-30] VITALS (13 sets, daily range): BP systolic 117–138; BP diastolic 66–90; O2SAT 88–97
[2021-05-30] MEDS: LORazepam 2 MG TAB PO PRN (02:07)
[2021-05-30] MEDS: LEVALBUTEROL HFA 45MCG/ACT 15 GM INHALER INH SCH ×4 (07:36→17:23)
[2021-05-30] MEDS: TIOTROPIUM INHALER/CAPSULE (SPIRIVA) INH SCH (07:36)
[2021-05-30 07:43] LABS: HEMATOCRIT 36.8 % (36.0-47.0); MEAN CORPUSCULAR HEMOGLOBIN 32.2 pg (27.0-33.0); MEAN CORPUSCULAR HGB CONC 33.7 g/dl (32.0-36.5); MEAN CORPUSCULAR VOLUME 95.6 fl (80.0-96.0); PLATELET COUNT, AUTOMATED 135 10^3/uL (150-450); RED BLOOD COUNT 3.85 10^6/uL (4.00-5.40); WHITE BLOOD COUNT 9.7 10^3/uL (4.0-10.0)
[2021-05-30 07:49] LABS: HEMOGLOBIN 12.4 g/dl (12.0-15.5)
[2021-05-30] MEDS: MIDODRINE 5 MG TAB PO SCH ×3 (08:00→15:28)
[2021-05-30 08:03] LABS: ALBUMIN 2.7 GM/DL (3.2-5.2); ALT/SGPT 20 U/L (12-78); BILIRUBIN,TOTAL 0.2 MG/DL (0.2-1.0); BLOOD UREA NITROGEN 24 MG/DL (7-18); CALCIUM LEVEL 8.7 MG/DL (8.8-10.2); CARBON DIOXIDE LEVEL 23 MEQ/L (21-32); CHLORIDE LEVEL 113 MEQ/L (98-107); GLOMERULAR FILTRATION RATE > 60.0 (>45); GLUCOSE, FASTING 114 MG/DL (70-100); POTASSIUM SERUM 5.5 MEQ/L (3.5-5.1); SODIUM LEVEL 142 MEQ/L (136-145); TOTAL PROTEIN 6.8 GM/DL (6.4-8.2)
[2021-05-30] MEDS ORDERED: guaiFENesin/CODEINE SYRUP 5 ML UDC PO PRN (09:05)
[2021-05-30] MEDS: dexameTHASONE 4 MG/ML 1ML VIAL (J1100 PER 1MG) IV SCH (10:17)
[2021-05-30] MEDS: ENOXAPARIN 30MG/0.3ML SYRINGE (J1650 PER 10MG) SC SCH ×2 (10:17→20:13)
[2021-05-30] MEDS: NICOTINE 21MG/24HR 1 EA TRANSDERMAL TD SCH (10:18)
[2021-05-30] MEDS: GABAPENTIN 300 MG CAP PO SCH ×3 (10:18→20:12)
[2021-05-30] MEDS: ATORVASTATIN 10 MG TAB PO SCH (10:19)
[2021-05-30] MEDS: BARICITINIB 2MG TABLET (OLUMIANT) FOR EUA PO SCH (10:19)
[2021-05-30] MEDS: OMEPRAZOLE 20MG CAP PO SCH (10:20)
[2021-05-30] MEDS: levETIRAcetam 250MG TABLET (KEPPRA) PO SCH ×2 (10:20→20:13)
[2021-05-30] MEDS: FOLIC ACID 1 MG TAB PO SCH (10:20)
[2021-05-30] MEDS: DULoxetine 30MG CAPSULE (CYMBALTA) PO SCH (10:21)
[2021-05-30] MEDS: MULTIVITAMINS/MINERALS THERAP 1 TAB PO SCH (10:21)
[2021-05-30] MEDS: THIAMINE 100 MG TAB PO SCH (10:21)
[2021-05-30] MEDS: CETIRIZINE (ZyrTEC) 10 MG TAB PO SCH (10:21)
[2021-05-30] MEDS: ASPIRIN 81MG ENTERIC TABLET PO SCH (10:21)
[2021-05-30] MEDS: PRAMIPEXOLE 1 MG TAB PO SCH ×2 (10:22→20:13)
[2021-05-30] MEDS: MAGNESIUM OXIDE 400MG TAB (MAG-OX) PO SCH (10:22)
[2021-05-30] MEDS: MECLIZINE 25 MG TABLET PO SCH (10:22)
[2021-05-30] MEDS: REMDESIVIR 100 MG in NS 250 ML IV SCH (12:29)
[2021-05-30] MEDS: SODIUM CHLORIDE 0.9% INJ 10 ML SYR IV SCH (13:34)
[2021-05-30] MEDS: traZODone 50 MG TAB PO SCH (20:13)
[2021-05-30] MEDS: cefTRIAXone SOD 1 GM in D5W MINI-BAG PLUS 50 ML IV SCH (20:58)
[2021-05-31] VITALS (10 sets, daily range): BP systolic 95–108; BP diastolic 61–67; O2SAT 89–98
[2021-05-31] MEDS: LEVALBUTEROL HFA 45MCG/ACT 15 GM INHALER INH SCH ×4 (07:57→17:10)
[2021-05-31] MEDS: TIOTROPIUM INHALER/CAPSULE (SPIRIVA) INH SCH (07:57)
[2021-05-31 08:06] LABS: HEMOGLOBIN 11.5 g/dl (12.0-15.5); MEAN CORPUSCULAR HEMOGLOBIN 32.1 pg (27.0-33.0); MEAN CORPUSCULAR HGB CONC 33.8 g/dl (32.0-36.5); PLATELET COUNT, AUTOMATED 148 10^3/uL (150-450); RED BLOOD COUNT 3.58 10^6/uL (4.00-5.40); WHITE BLOOD COUNT 11.7 10^3/uL (4.0-10.0)
[2021-05-31 08:12] LABS: INR 0.92; PROTHROMBIN TIME 12.8 SECONDS (12.7-14.5)
[2021-05-31 08:14] LABS: PARTIAL THROMBOPLASTIN TIME 56.5 SECONDS (25.9-37.0)
[2021-05-31] MEDS: BARICITINIB 2MG TABLET (OLUMIANT) FOR EUA PO SCH (08:30)
[2021-05-31] MEDS: PRAMIPEXOLE 1 MG TAB PO SCH ×2 (08:31→20:35)
[2021-05-31] MEDS: DULoxetine 30MG CAPSULE (CYMBALTA) PO SCH (08:32)
[2021-05-31] MEDS: ASPIRIN 81MG ENTERIC TABLET PO SCH (08:32)
[2021-05-31] MEDS: ATORVASTATIN 10 MG TAB PO SCH (08:33)
[2021-05-31] MEDS: levETIRAcetam 250MG TABLET (KEPPRA) PO SCH ×2 (08:33→20:35)
[2021-05-31] MEDS: OMEPRAZOLE 20MG CAP PO SCH (08:34)
[2021-05-31] MEDS: GABAPENTIN 300 MG CAP PO SCH ×3 (08:34→20:35)
[2021-05-31] MEDS: MULTIVITAMINS/MINERALS THERAP 1 TAB PO SCH (08:35)
[2021-05-31] MEDS: MAGNESIUM OXIDE 400MG TAB (MAG-OX) PO SCH (08:35)
[2021-05-31] MEDS: FOLIC ACID 1 MG TAB PO SCH (08:36)
[2021-05-31] MEDS: CETIRIZINE (ZyrTEC) 10 MG TAB PO SCH (08:36)
[2021-05-31] MEDS: MIDODRINE 5 MG TAB PO SCH ×3 (08:37→15:33)
[2021-05-31] MEDS: THIAMINE 100 MG TAB PO SCH (08:37)
[2021-05-31] MEDS: MECLIZINE 25 MG TABLET PO SCH (08:37)
[2021-05-31] MEDS: dexameTHASONE 4 MG/ML 1ML VIAL (J1100 PER 1MG) IV SCH (08:38)
[2021-05-31] MEDS: ENOXAPARIN 60MG/0.6ML SYRINGE (J1650 PER 10MG) SC SCH ×2 (08:38→20:35)
[2021-05-31] MEDS: NICOTINE 21MG/24HR 1 EA TRANSDERMAL TD SCH (08:39)
[2021-05-31 08:50] LABS: ALBUMIN 2.6 GM/DL (3.2-5.2); ALT/SGPT 18 U/L (12-78); BILIRUBIN,TOTAL 0.2 MG/DL (0.2-1.0); BLOOD UREA NITROGEN 15 MG/DL (7-18); CALCIUM LEVEL 8.4 MG/DL (8.8-10.2); CARBON DIOXIDE LEVEL 27 MEQ/L (21-32); CHLORIDE LEVEL 104 MEQ/L (98-107); CREATININE FOR GFR 0.61 MG/DL (0.55-1.30); GLOMERULAR FILTRATION RATE > 60.0 (>45); GLUCOSE, FASTING 83 MG/DL (70-100); POTASSIUM SERUM 3.8 MEQ/L (3.5-5.1); SODIUM LEVEL 138 MEQ/L (136-145); TOTAL PROTEIN 6.6 GM/DL (6.4-8.2)
[2021-05-31 08:57] LABS: FERRITIN 332 NG/ML (8-252); LDH LACTATE DEHYDROGENASE 175 U/L (84-246); NT-PRO BNP 521 PG/ML (<125)
[2021-05-31] MEDS: REMDESIVIR 100 MG in NS 250 ML IV SCH (11:00)
[2021-05-31] MEDS: SODIUM CHLORIDE 0.9% INJ 10 ML SYR IV SCH (11:17)
[2021-05-31] MEDS: traZODone 50 MG TAB PO SCH (20:35)
[2021-05-31] MEDS: cefTRIAXone SOD 1 GM in D5W MINI-BAG PLUS 50 ML IV SCH (20:36)
[2021-06-01] VITALS (12 sets, daily range): BP systolic 128–164; BP diastolic 61–79; O2SAT 92–99
[2021-06-01 06:57] LABS: HEMATOCRIT 34.3 % (36.0-47.0); HEMOGLOBIN 11.4 g/dl (12.0-15.5); MEAN CORPUSCULAR HEMOGLOBIN 31.8 pg (27.0-33.0); MEAN CORPUSCULAR HGB CONC 33.2 g/dl (32.0-36.5); MEAN CORPUSCULAR VOLUME 95.5 fl (80.0-96.0); PLATELET COUNT, AUTOMATED 135 10^3/uL (150-450); RED BLOOD COUNT 3.59 10^6/uL (4.00-5.40); WHITE BLOOD COUNT 5.1 10^3/uL (4.0-10.0)
[2021-06-01 07:12] LABS: ALBUMIN 2.4 GM/DL (3.2-5.2); ALT/SGPT 19 U/L (12-78); BILIRUBIN,TOTAL 0.1 MG/DL (0.2-1.0); BLOOD UREA NITROGEN 13 MG/DL (7-18); CALCIUM LEVEL 8.7 MG/DL (8.8-10.2); CARBON DIOXIDE LEVEL 29 MEQ/L (21-32); CHLORIDE LEVEL 104 MEQ/L (98-107); CREATININE FOR GFR 0.59 MG/DL (0.55-1.30); GLOMERULAR FILTRATION RATE > 60.0 (>45); GLUCOSE, FASTING 86 MG/DL (70-100); POTASSIUM SERUM 3.8 MEQ/L (3.5-5.1); SODIUM LEVEL 138 MEQ/L (136-145); TOTAL PROTEIN 6.3 GM/DL (6.4-8.2)
[2021-06-01] MEDS: GABAPENTIN 300 MG CAP PO SCH ×3 (08:08→21:38)
[2021-06-01] MEDS: dexameTHASONE 4 MG/ML 1ML VIAL (J1100 PER 1MG) IV SCH (08:08)
[2021-06-01] MEDS: OMEPRAZOLE 20MG CAP PO SCH (08:09)
[2021-06-01] MEDS: NICOTINE 21MG/24HR 1 EA TRANSDERMAL TD SCH (08:09)
[2021-06-01] MEDS: PRAMIPEXOLE 1 MG TAB PO SCH ×2 (08:09→21:39)
[2021-06-01] MEDS: ENOXAPARIN 60MG/0.6ML SYRINGE (J1650 PER 10MG) SC SCH ×2 (08:09→21:40)
[2021-06-01] MEDS: levETIRAcetam 250MG TABLET (KEPPRA) PO SCH ×2 (08:10→21:38)
[2021-06-01] MEDS: BARICITINIB 2MG TABLET (OLUMIANT) FOR EUA PO SCH (08:10)
[2021-06-01] MEDS: MIDODRINE 5 MG TAB PO SCH ×3 (08:11→15:52)
[2021-06-01] MEDS: THIAMINE 100 MG TAB PO SCH (08:11)
[2021-06-01] MEDS: ASPIRIN 81MG ENTERIC TABLET PO SCH (08:11)
[2021-06-01] MEDS: DULoxetine 30MG CAPSULE (CYMBALTA) PO SCH (08:11)
[2021-06-01] MEDS: FOLIC ACID 1 MG TAB PO SCH (08:11)
[2021-06-01] MEDS: MAGNESIUM OXIDE 400MG TAB (MAG-OX) PO SCH (08:11)
[2021-06-01] MEDS: MULTIVITAMINS/MINERALS THERAP 1 TAB PO SCH (08:12)
[2021-06-01] MEDS: CETIRIZINE (ZyrTEC) 10 MG TAB PO SCH (08:12)
[2021-06-01] MEDS: ATORVASTATIN 10 MG TAB PO SCH (08:12)
[2021-06-01] MEDS: MECLIZINE 25 MG TABLET PO SCH (08:14)
[2021-06-01] MEDS: TIOTROPIUM INHALER/CAPSULE (SPIRIVA) INH SCH (08:24)
[2021-06-01] MEDS: LEVALBUTEROL HFA 45MCG/ACT 15 GM INHALER INH SCH ×4 (08:24→20:23)
[2021-06-01] MEDS: SYMBICORT 160/4.5MCG INHALER 6GM INH PRN (08:30)
[2021-06-01] MEDS: SODIUM CHLORIDE 0.9% INJ 10 ML SYR IV SCH (11:14)
[2021-06-01] MEDS: REMDESIVIR 100 MG in NS 250 ML IV SCH (11:14)
[2021-06-01] MEDS: cefTRIAXone SOD 1 GM in D5W MINI-BAG PLUS 50 ML IV SCH (21:37)
[2021-06-01] MEDS: traZODone 50 MG TAB PO SCH (21:38)
[2021-06-02] VITALS (8 sets, daily range): BP systolic 113–149; BP diastolic 58–79; O2SAT 91–96
[2021-06-02 08:00] LABS: HEMATOCRIT 33.9 % (36.0-47.0); HEMOGLOBIN 11.6 g/dl (12.0-15.5); MEAN CORPUSCULAR HEMOGLOBIN 31.9 pg (27.0-33.0); MEAN CORPUSCULAR HGB CONC 34.2 g/dl (32.0-36.5); MEAN CORPUSCULAR VOLUME 93.1 fl (80.0-96.0); PLATELET COUNT, AUTOMATED 169 10^3/uL (150-450); RED BLOOD COUNT 3.64 10^6/uL (4.00-5.40); WHITE BLOOD COUNT 5.1 10^3/uL (4.0-10.0)
[2021-06-02] MEDS: TIOTROPIUM INHALER/CAPSULE (SPIRIVA) INH SCH (08:09)
[2021-06-02] MEDS: LEVALBUTEROL HFA 45MCG/ACT 15 GM INHALER INH SCH ×4 (08:09→20:00)
[2021-06-02] MEDS: SYMBICORT 160/4.5MCG INHALER 6GM INH PRN (08:09)
[2021-06-02 08:11] LABS: PROTHROMBIN TIME 13.6 SECONDS (12.7-14.5)
[2021-06-02 08:12] LABS: PARTIAL THROMBOPLASTIN TIME 52.8 SECONDS (25.9-37.0)
[2021-06-02 08:29] LABS: ALBUMIN 2.4 GM/DL (3.2-5.2); ALT/SGPT 20 U/L (12-78); BILIRUBIN,TOTAL 0.2 MG/DL (0.2-1.0); BLOOD UREA NITROGEN 12 MG/DL (7-18); CALCIUM LEVEL 8.6 MG/DL (8.8-10.2); CARBON DIOXIDE LEVEL 28 MEQ/L (21-32); CHLORIDE LEVEL 104 MEQ/L (98-107); CREATININE FOR GFR 0.69 MG/DL (0.55-1.30); FERRITIN 289 NG/ML (8-252); GLOMERULAR FILTRATION RATE > 60.0 (>45); GLUCOSE, FASTING 138 MG/DL (70-100); LDH LACTATE DEHYDROGENASE 126 U/L (84-246); NT-PRO BNP 571 PG/ML (<125); POTASSIUM SERUM 3.2 MEQ/L (3.5-5.1); SODIUM LEVEL 139 MEQ/L (136-145); TOTAL PROTEIN 6.3 GM/DL (6.4-8.2)
[2021-06-02] MEDS: NICOTINE 21MG/24HR 1 EA TRANSDERMAL TD SCH (09:41)
[2021-06-02] MEDS: MAGNESIUM OXIDE 400MG TAB (MAG-OX) PO SCH (09:43)
[2021-06-02] MEDS: CETIRIZINE (ZyrTEC) 10 MG TAB PO SCH (09:44)
[2021-06-02] MEDS: ATORVASTATIN 10 MG TAB PO SCH (09:44)
[2021-06-02] MEDS: OMEPRAZOLE 20MG CAP PO SCH (09:44)
[2021-06-02] MEDS: ASPIRIN 81MG ENTERIC TABLET PO SCH (09:44)
[2021-06-02] MEDS: DULoxetine 30MG CAPSULE (CYMBALTA) PO SCH (09:44)
[2021-06-02] MEDS: PRAMIPEXOLE 1 MG TAB PO SCH ×2 (09:44→22:30)
[2021-06-02] MEDS: ENOXAPARIN 60MG/0.6ML SYRINGE (J1650 PER 10MG) SC SCH ×2 (09:45→22:31)
[2021-06-02] MEDS: GABAPENTIN 300 MG CAP PO SCH ×3 (09:45→22:30)
[2021-06-02] MEDS: THIAMINE 100 MG TAB PO SCH (09:45)
[2021-06-02] MEDS: BARICITINIB 2MG TABLET (OLUMIANT) FOR EUA PO SCH (09:45)
[2021-06-02] MEDS: MIDODRINE 5 MG TAB PO SCH ×3 (09:45→16:34)
[2021-06-02] MEDS: MECLIZINE 25 MG TABLET PO SCH (09:45)
[2021-06-02] MEDS: FOLIC ACID 1 MG TAB PO SCH (09:45)
[2021-06-02] MEDS: dexameTHASONE 4 MG/ML 1ML VIAL (J1100 PER 1MG) IV SCH (09:45)
[2021-06-02] MEDS: MULTIVITAMINS/MINERALS THERAP 1 TAB PO SCH (09:46)
[2021-06-02] MEDS: levETIRAcetam 250MG TABLET (KEPPRA) PO SCH ×2 (09:46→22:30)
[2021-06-02] MEDS: REMDESIVIR 100 MG in NS 250 ML IV SCH (12:41)
[2021-06-02] MEDS: SODIUM CHLORIDE 0.9% INJ 10 ML SYR IV SCH (12:42)
[2021-06-02] MEDS ORDERED: POTASSIUM CHLORIDE 10MEQ SR TABLET PO ONE (16:20)
[2021-06-02] MEDS: RAMELTEON 8 MG TAB (ROZEREM) PO SCH (22:30)
[2021-06-02] MEDS: traZODone 50 MG TAB PO SCH (22:30)
[2021-06-02] MEDS: cefTRIAXone SOD 1 GM in D5W MINI-BAG PLUS 50 ML IV SCH (22:31)
[2021-06-03] VITALS (8 sets, daily range): BP systolic 100–106; BP diastolic 56–68; O2SAT 91–94
[2021-06-03] MEDS ORDERED: ACET1TAB55 PO (07:41)
[2021-06-03] MEDS ORDERED: PRED20TA PO (07:41)
[2021-06-03] MEDS ORDERED: GUAI20TA PO (07:41)
[2021-06-03] MEDS: TIOTROPIUM INHALER/CAPSULE (SPIRIVA) INH SCH (08:25)
[2021-06-03] MEDS: LEVALBUTEROL HFA 45MCG/ACT 15 GM INHALER INH SCH ×4 (08:26→19:21)
[2021-06-03 09:21] LABS: MEAN CORPUSCULAR HEMOGLOBIN 32.9 pg (27.0-33.0); MEAN CORPUSCULAR HGB CONC 34.3 g/dl (32.0-36.5); MEAN CORPUSCULAR VOLUME 95.9 fl (80.0-96.0); PLATELET COUNT, AUTOMATED 207 10^3/uL (150-450); RED BLOOD COUNT 3.65 10^6/uL (4.00-5.40); WHITE BLOOD COUNT 6.3 10^3/uL (4.0-10.0)
[2021-06-03] MEDS: BARICITINIB 2MG TABLET (OLUMIANT) FOR EUA PO SCH (09:25)
[2021-06-03] MEDS: ENOXAPARIN 60MG/0.6ML SYRINGE (J1650 PER 10MG) SC SCH ×2 (09:25→20:32)
[2021-06-03] MEDS: MIDODRINE 5 MG TAB PO SCH ×3 (09:26→16:42)
[2021-06-03] MEDS: DULoxetine 30MG CAPSULE (CYMBALTA) PO SCH (09:26)
[2021-06-03] MEDS: levETIRAcetam 250MG TABLET (KEPPRA) PO SCH ×2 (09:26→20:31)
[2021-06-03] MEDS: MECLIZINE 25 MG TABLET PO SCH (09:27)
[2021-06-03] MEDS: ATORVASTATIN 10 MG TAB PO SCH (09:27)
[2021-06-03] MEDS: MULTIVITAMINS/MINERALS THERAP 1 TAB PO SCH (09:27)
[2021-06-03] MEDS: dexameTHASONE 4 MG/ML 1ML VIAL (J1100 PER 1MG) IV SCH (09:27)
[2021-06-03] MEDS: ASPIRIN 81MG ENTERIC TABLET PO SCH (09:27)
[2021-06-03] MEDS: PRAMIPEXOLE 1 MG TAB PO SCH ×2 (09:27→20:31)
[2021-06-03] MEDS: THIAMINE 100 MG TAB PO SCH (09:27)
[2021-06-03] MEDS: OMEPRAZOLE 20MG CAP PO SCH (09:27)
[2021-06-03] MEDS: FOLIC ACID 1 MG TAB PO SCH (09:27)
[2021-06-03] MEDS: MAGNESIUM OXIDE 400MG TAB (MAG-OX) PO SCH (09:27)
[2021-06-03] MEDS: GABAPENTIN 300 MG CAP PO SCH ×3 (09:27→20:31)
[2021-06-03] MEDS: CETIRIZINE (ZyrTEC) 10 MG TAB PO SCH (09:27)
[2021-06-03] MEDS: NICOTINE 21MG/24HR 1 EA TRANSDERMAL TD SCH (09:28)
[2021-06-03 09:52] LABS: ALBUMIN 2.3 GM/DL (3.2-5.2); ALT/SGPT 28 U/L (12-78); BILIRUBIN,TOTAL 0.3 MG/DL (0.2-1.0); BLOOD UREA NITROGEN 13 MG/DL (7-18); CALCIUM LEVEL 8.7 MG/DL (8.8-10.2); CARBON DIOXIDE LEVEL 28 MEQ/L (21-32); CHLORIDE LEVEL 105 MEQ/L (98-107); CREATININE FOR GFR 0.57 MG/DL (0.55-1.30); GLOMERULAR FILTRATION RATE > 60.0 (>45); GLUCOSE, FASTING 75 MG/DL (70-100); POTASSIUM SERUM 4.3 MEQ/L (3.5-5.1); SODIUM LEVEL 138 MEQ/L (136-145); TOTAL PROTEIN 6.1 GM/DL (6.4-8.2)
[2021-06-03] MEDS: RAMELTEON 8 MG TAB (ROZEREM) PO SCH (20:31)
[2021-06-03] MEDS: traZODone 50 MG TAB PO SCH (20:31)
[2021-06-04 00:02] VITALS: O2SAT 93
[2021-06-04 04:26] VITALS: BP 104/59
[2021-06-04 04:32] VITALS: O2SAT 92
[2021-06-04 07:20] LABS: HEMATOCRIT 37.2 % (36.0-47.0); HEMOGLOBIN 12.5 g/dl (12.0-15.5); MEAN CORPUSCULAR HEMOGLOBIN 31.6 pg (27.0-33.0); MEAN CORPUSCULAR HGB CONC 33.6 g/dl (32.0-36.5); MEAN CORPUSCULAR VOLUME 94.2 fl (80.0-96.0); PLATELET COUNT, AUTOMATED 283 10^3/uL (150-450); RED BLOOD COUNT 3.95 10^6/uL (4.00-5.40); WHITE BLOOD COUNT 6.8 10^3/uL (4.0-10.0)
[2021-06-04 07:30] LABS: INR 0.9; PROTHROMBIN TIME 12.6 SECONDS (12.7-14.5)
[2021-06-04 07:31] LABS: PARTIAL THROMBOPLASTIN TIME 41.5 SECONDS (25.9-37.0)
[2021-06-04 07:37] LABS: ALBUMIN 2.7 GM/DL (3.2-5.2); ALT/SGPT 40 U/L (12-78); BILIRUBIN,TOTAL 0.2 MG/DL (0.2-1.0); BLOOD UREA NITROGEN 18 MG/DL (7-18); CALCIUM LEVEL 9.1 MG/DL (8.8-10.2); CARBON DIOXIDE LEVEL 30 MEQ/L (21-32); CHLORIDE LEVEL 101 MEQ/L (98-107); CREATININE FOR GFR 0.69 MG/DL (0.55-1.30); FERRITIN 306 NG/ML (8-252); GLOMERULAR FILTRATION RATE > 60.0 (>45); GLUCOSE, FASTING 76 MG/DL (70-100); LDH LACTATE DEHYDROGENASE 133 U/L (84-246); NT-PRO BNP 89 PG/ML (<125); POTASSIUM SERUM 4.3 MEQ/L (3.5-5.1); SODIUM LEVEL 137 MEQ/L (136-145); TOTAL PROTEIN 6.5 GM/DL (6.4-8.2)
[2021-06-04 08:00] VITALS: O2SAT 94
[2021-06-04] MEDS: TIOTROPIUM INHALER/CAPSULE (SPIRIVA) INH SCH (08:27)
[2021-06-04] MEDS: LEVALBUTEROL HFA 45MCG/ACT 15 GM INHALER INH SCH ×2 (08:27→11:24)
[2021-06-04] MEDS: THIAMINE 100 MG TAB PO SCH (08:38)
[2021-06-04] MEDS: DULoxetine 30MG CAPSULE (CYMBALTA) PO SCH (08:38)
[2021-06-04] MEDS: BARICITINIB 2MG TABLET (OLUMIANT) FOR EUA PO SCH (08:38)
[2021-06-04] MEDS: ATORVASTATIN 10 MG TAB PO SCH (08:39)
[2021-06-04] MEDS: PRAMIPEXOLE 1 MG TAB PO SCH (08:39)
[2021-06-04] MEDS: levETIRAcetam 250MG TABLET (KEPPRA) PO SCH (08:39)
[2021-06-04] MEDS: GABAPENTIN 300 MG CAP PO SCH (08:39)
[2021-06-04] MEDS: MULTIVITAMINS/MINERALS THERAP 1 TAB PO SCH (08:39)
[2021-06-04] MEDS: ASPIRIN 81MG ENTERIC TABLET PO SCH (08:39)
[2021-06-04] MEDS: OMEPRAZOLE 20MG CAP PO SCH (08:39)
[2021-06-04] MEDS: MAGNESIUM OXIDE 400MG TAB (MAG-OX) PO SCH (08:39)
[2021-06-04] MEDS: MIDODRINE 5 MG TAB PO SCH ×2 (08:39→12:59)
[2021-06-04] MEDS: ENOXAPARIN 60MG/0.6ML SYRINGE (J1650 PER 10MG) SC SCH (08:40)
[2021-06-04] MEDS: NICOTINE 21MG/24HR 1 EA TRANSDERMAL TD SCH (08:40)
[2021-06-04] MEDS: CETIRIZINE (ZyrTEC) 10 MG TAB PO SCH (08:40)
[2021-06-04] MEDS: dexameTHASONE 4 MG/ML 1ML VIAL (J1100 PER 1MG) IV SCH (08:40)
[2021-06-04] MEDS: MECLIZINE 25 MG TABLET PO SCH (08:41)
[2021-06-04] MEDS: FOLIC ACID 1 MG TAB PO SCH (08:41)
[2021-06-04] MEDS: SYMBICORT 160/4.5MCG INHALER 6GM INH PRN (11:24)
[2021-06-04] MEDS ORDERED: RAME8TAB2 PO (13:15)
[2021-06-04 13:29] VITALS: BP 118/59
== END 2021-06-04 14:01 | disposition home health service (06) | DRG 177 ==
LOC: M ED 02:09 → EDBD 02:09 → M ED INP 07:27 → ENRESERV 09:15 → M 4MAIN 10:20
PROVIDERS: ADMIT Internal Medicine; ATTEND Internal Medicine
PROC: XW033E5 Introduction of Remdesivir Anti-infective into Peripheral Vein, Percutaneous Approach, New Technology Group 5 (ICD-10-PCS; principal; 2021-05-29)
PROC: 3E0333Z Introduction of Anti-inflammatory into Peripheral Vein, Percutaneous Approach (ICD-10-PCS; 2021-05-29)
DX: U07.1 COVID-19 (principal); J96.01 Acute respiratory failure with hypoxia; J12.82 Pneumonia due to coronavirus disease 2019; N39.0 Urinary tract infection, site not specified; F10.139 Alcohol abuse with withdrawal, unspecified; J43.2 Centrilobular emphysema; K21.9 Gastro-esophageal reflux disease without esophagitis; F17.200 Nicotine dependence, unspecified, uncomplicated; I10 Essential (primary) hypertension; M81.0 Age-related osteoporosis without current pathological fracture; F32.A Depression, unspecified; E87.5 Hyperkalemia; I95.9 Hypotension, unspecified; G31.2 Degeneration of nervous system due to alcohol; B96.89 Other specified bacterial agents as the cause of diseases classified elsewhere; G40.909 Epilepsy, unspecified, not intractable, without status epilepticus; K58.9 Irritable bowel syndrome, unspecified; G25.81 Restless legs syndrome; E83.42 Hypomagnesemia; Z79.82 Long term (current) use of aspirin; Z79.899 Other long term (current) drug therapy; Z88.0 Allergy status to penicillin; Z88.1 Allergy status to other antibiotic agents; Z88.2 Allergy status to sulfonamides

== ENCOUNTER → 2021-07-05 | Outpatient (CLI) | payer OTHER ==
[~2021-07-05] MED LIST changes: +ACET1TAB55 PO; +ASPI81TA26 PO; +CETI-24 PO; +D3 H10002 PO; +GUAI20TA PO; +LEVE500T5 PO; +MIDO5TA PO; +PRAM1.5T2 PO; +PRED20TA PO; +RAME8TAB2 PO
== END ==
LOC: M WUC 13:36
DX: M19.041 Primary osteoarthritis, right hand (principal)

== ENCOUNTER → 2021-07-23 | Outpatient (CLI) | payer MEDICARE ==
[2021-07-23 12:31] LABS: BASO % 0.5 % (0.0-1.0); EOS # 0.1 10^3/uL (0.0-0.5); EOS % 1.8 % (0.0-3.0); HEMOGLOBIN 13.7 g/dl (12.0-15.5); LYMPH % 25.5 % (24.0-44.0); MEAN CORPUSCULAR HEMOGLOBIN 32.7 pg (27.0-33.0); MEAN CORPUSCULAR HGB CONC 32.6 g/dl (32.0-36.5); MEAN CORPUSCULAR VOLUME 100.2 fl (80.0-96.0); MONO # 0.5 10^3/uL (0.0-0.8); MONO % 6.4 % (2.0-8.0); NEUTROPHILS % 65.4 % (36.0-66.0); PLATELET COUNT, AUTOMATED 252 10^3/uL (150-450); RED BLOOD COUNT 4.19 10^6/uL (4.00-5.40); WHITE BLOOD COUNT 7.7 10^3/uL (4.0-10.0)
[2021-07-23 13:25] LABS: ALBUMIN 3.7 GM/DL (3.2-5.2); ALT/SGPT 19 U/L (12-78); BILIRUBIN,TOTAL 0.4 MG/DL (0.2-1.0); BLOOD UREA NITROGEN 7 MG/DL (7-18); CALCIUM LEVEL 9.1 MG/DL (8.8-10.2); CARBON DIOXIDE LEVEL 32 MEQ/L (21-32); CHLORIDE LEVEL 108 MEQ/L (98-107); CREATININE FOR GFR 0.71 MG/DL (0.55-1.30); GLOMERULAR FILTRATION RATE > 60.0 (>45); GLUCOSE, FASTING 92 MG/DL (70-100); POTASSIUM SERUM 4.4 MEQ/L (3.5-5.1); SODIUM LEVEL 141 MEQ/L (136-145); TOTAL PROTEIN 6.8 GM/DL (6.4-8.2)
== END ==
LOC: M EKG 11:52
PROVIDERS: ATTEND Podiatrist
DX: Z01.818 Encounter for other preprocedural examination (principal); I49.9 Cardiac arrhythmia, unspecified; J44.9 Chronic obstructive pulmonary disease, unspecified; M20.21 Hallux rigidus, right foot; M79.671 Pain in right foot

== ENCOUNTER → 2021-07-29 | Outpatient (CLI) | payer MEDICARE, OTHER | LOC: M LABSMTC 11:01 | PROVIDERS: ATTEND Anesthesiology | DX: Z11.52 Encounter for screening for COVID-19 (principal); Z20.822 Contact with and (suspected) exposure to COVID-19 ==

== ENCOUNTER 2021-08-02 09:00 | Day surgery (SDC) | payer MEDICARE, OTHER ==
[~2021-08-02] VITALS: Ht 157.5 cm; Wt 53.2 kg
[~2021-08-02 09:00] MED LIST changes: +LIDOCAINE 1% MDV 20ML VIAL SQ PRN; +LIDOCAINE 2% 100MG/5ML SDV (FOR ANES.) As Ordered ONE; +LR 1,000 ML IV ONE; +MIDAZOLAM INJ 2MG/2ML VIAL (J2250 PER 1MG) As Ordered ONE; +VANCOMYCIN HCL 1,000 MG, VIAL MATE ADAPTER 1 EACH in NS 250 ML IV ONE; +fentaNYL 100 MCG/2 ML INJECTION As Ordered ONE; +propofoL 200 MG/20 ML VIAL As Ordered ONE
[2021-08-02] MEDS ORDERED: dexameTHASONE 4 MG/ML 1ML VIAL (J1100 PER 1MG) As Ordered ONE (10:23)
[2021-08-02] MEDS ORDERED: GENTAMICIN SULF 80MG/2ML VIAL As Ordered ONE (10:23)
[2021-08-02] MEDS ORDERED: LIDOCAINE 1% SDV 30ML VIAL As Ordered ONE (10:23)
[2021-08-02] MEDS ORDERED: LIDOCAINE 2% MDV 20ML VIAL As Ordered ONE (10:24)
[2021-08-02] MEDS ORDERED: BUPIVACAINE HCL 0.5% 30ML VIAL As Ordered ONE (10:24)
[2021-08-02] MEDS ORDERED: PHENYLephrine 500MCG 5ML (100MCG/ML) SYRINGE As Ordered ONE (11:33)
[2021-08-02] MEDS ORDERED: propofoL 200 MG/20 ML VIAL As Ordered ONE (12:28)
[2021-08-02 12:33] VITALS: BP 132/71
== END 2021-08-02 12:45 | disposition home or self-care (01) ==
LOC: M SDC 09:00
PROVIDERS: ATTEND Podiatrist
DX: M20.21 Hallux rigidus, right foot (principal); M79.671 Pain in right foot; E78.00 Pure hypercholesterolemia, unspecified; I95.9 Hypotension, unspecified; E16.2 Hypoglycemia, unspecified; G25.81 Restless legs syndrome; K58.8 Other irritable bowel syndrome; J44.9 Chronic obstructive pulmonary disease, unspecified; M19.90 Unspecified osteoarthritis, unspecified site; I67.1 Cerebral aneurysm, nonruptured; F32.A Depression, unspecified; F41.9 Anxiety disorder, unspecified; G43.909 Migraine, unspecified, not intractable, without status migrainosus; G62.9 Polyneuropathy, unspecified; R56.9 Unspecified convulsions; R06.83 Snoring; U09.9 Post COVID-19 condition, unspecified; Z88.1 Allergy status to other antibiotic agents; Z88.0 Allergy status to penicillin; Z88.2 Allergy status to sulfonamides; Z79.899 Other long term (current) drug therapy; Z79.82 Long term (current) use of aspirin; Z79.51 Long term (current) use of inhaled steroids
CPT/HCPCS: 28289; 76000; 88300; J1100; J1580; J2250; J2370; J3010; J3370

== ENCOUNTER 2022-01-09 08:04 | Inpatient (IN) | payer MEDICARE ==
[~2022-01-09] VITALS: Ht 160 cm; Wt 56.9 kg
[~2022-01-09 08:04] MED LIST changes: +ALBU2.5V10 INH; +ALBU2.5V10 PO; -ALBU83IN INH; -ALBU83IN PO; +ALEN70TA87 PO; -FOSA70TA PO; -LIDOCAINE 1% MDV 20ML VIAL SQ PRN; -LIDOCAINE 2% 100MG/5ML SDV (FOR ANES.) As Ordered ONE; -LR 1,000 ML IV ONE; -MIDAZOLAM INJ 2MG/2ML VIAL (J2250 PER 1MG) As Ordered ONE; -VANCOMYCIN HCL 1,000 MG, VIAL MATE ADAPTER 1 EACH in NS 250 ML IV ONE; -fentaNYL 100 MCG/2 ML INJECTION As Ordered ONE; -propofoL 200 MG/20 ML VIAL As Ordered ONE
[2022-01-09] MEDS ORDERED: ACETAMINOPHEN TAB 650MG DOSE (2X325MG) PO ONE (08:35)
[2022-01-09 08:58] LABS: BASO % 0.2 % (0.0-1.0); HEMATOCRIT 40.1 % (36.0-47.0); HEMOGLOBIN 13.7 g/dl (12.0-15.5); LYMPH # 0.6 10^3/uL (1.5-5.0); MEAN CORPUSCULAR HEMOGLOBIN 32.2 pg (27.0-33.0); MEAN CORPUSCULAR HGB CONC 34.2 g/dl (32.0-36.5); MEAN CORPUSCULAR VOLUME 94.4 fl (80.0-96.0); MONO # 0.7 10^3/uL (0.0-0.8); MONO % 4.4 % (2.0-8.0); NEUTROPHILS # 13.9 10^3/uL (1.5-8.5); NEUTROPHILS % 91.1 % (36.0-66.0); PLATELET COUNT, AUTOMATED 269 10^3/uL (150-450); RED BLOOD COUNT 4.25 10^6/uL (4.00-5.40); WHITE BLOOD COUNT 15.3 10^3/uL (4.0-10.0)
[2022-01-09 09:28] LABS: ERYTHROCYTE SEDIMENTATION RATE 22 mm/hr (0-30)
[2022-01-09 09:35] LABS: BLOOD UREA NITROGEN 7 MG/DL (7-18); C REACTIVE PROTEIN QUANTITATIV 1.93 MG/DL (0.00-0.30); CARBON DIOXIDE LEVEL 29 MEQ/L (21-32); CHLORIDE LEVEL 101 MEQ/L (98-107); CREATININE FOR GFR 0.86 MG/DL (0.55-1.30); GLOMERULAR FILTRATION RATE > 60.0 (>45); GLUCOSE, FASTING 175 MG/DL (70-100); POTASSIUM SERUM 3.8 MEQ/L (3.5-5.1); SODIUM LEVEL 135 MEQ/L (136-145)
[2022-01-09] MEDS ORDERED: ISOVUE-370 76% 100ML VIAL As Ordered ONE (11:15)
[2022-01-09] MEDS ORDERED: NS 1,000 ML IV ONE (15:50)
[2022-01-09] MEDS ORDERED: IPRATROPIUM 0.5MG/ALBUTEROL 2.5MG INH SOL UD 3ML (DUONEB) NEB ONE (18:10)
[2022-01-09] MEDS ORDERED: ONDANSETRON 4MG 2ML VIAL IV PRN (18:25)
[2022-01-09] MEDS ORDERED: ATOR40TA75 PO (18:36)
[2022-01-09] MEDS ORDERED: ROZE8TAB16 PO (18:36)
[2022-01-09] MEDS ORDERED: D-20TAB PO (18:36)
[2022-01-09] MEDS ORDERED: HYDR-3363 PO (18:36)
[2022-01-09] MEDS ORDERED: MECL-86 PO (18:36)
[2022-01-09] MEDS ORDERED: HOME MED LIST COMPLETE! XX SCH (18:45)
[2022-01-09] MEDS: SYMBICORT 160/4.5MCG INHALER 6GM INH SCH (20:24)
[2022-01-09] MEDS: LEVALBUTEROL 1.25 MG/0.5 ML CONCENTRATE NEB INH SCH ×2 (20:25→23:23)
[2022-01-09] MEDS: NS 1,000 ML IV SCH (20:32)
[2022-01-09] MEDS: methylPREDNISolone 40MG 1ML VIAL IV SCH (20:32)
[2022-01-09 20:54] VITALS: BP 149/83
[2022-01-09] MEDS: traZODone 50 MG TAB PO SCH (21:51)
[2022-01-09] MEDS: DULoxetine 30MG CAPSULE (CYMBALTA) PO SCH (21:51)
[2022-01-09] MEDS: PRAMIPEXOLE 0.25 MG TAB PO SCH (21:52)
[2022-01-09] MEDS: PRAMIPEXOLE 1 MG TAB PO SCH (21:52)
[2022-01-09] MEDS: AZITHROMYCIN 250MG TABLET PO SCH (21:52)
[2022-01-09] MEDS: GABAPENTIN 300 MG CAP PO SCH (21:52)
[2022-01-09] MEDS: levETIRAcetam 250MG TABLET (KEPPRA) PO SCH (21:52)
[2022-01-09] MEDS: PANTOPRAZOLE 40MG TAB (PROTONIX) PO SCH (21:52)
[2022-01-09] MEDS: KETOROLAC 30 MG/ML 1ML VIAL IV PRN (21:53)
[2022-01-09] MEDS: NICOTINE 21MG/24HR 1 EA TRANSDERMAL TD SCH (21:53)
[2022-01-09] MEDS: hydrOXYzine 50 MG TAB PO SCH (21:54)
[2022-01-10] VITALS (7 sets, daily range): BP systolic 98–114; BP diastolic 50–61; O2SAT 89–94
[2022-01-10] MEDS: methylPREDNISolone 40MG 1ML VIAL IV SCH ×4 (03:44→20:57)
[2022-01-10] MEDS: LEVALBUTEROL 1.25 MG/0.5 ML CONCENTRATE NEB INH SCH ×6 (03:46→23:12)
[2022-01-10] MEDS: NS 1,000 ML IV SCH ×3 (06:01→21:45)
[2022-01-10 06:34] LABS: HEMATOCRIT 37.5 % (36.0-47.0); HEMOGLOBIN 12.3 g/dl (12.0-15.5); LYMPH # 0.8 10^3/uL (1.5-5.0); MEAN CORPUSCULAR HEMOGLOBIN 31.3 pg (27.0-33.0); MEAN CORPUSCULAR HGB CONC 32.8 g/dl (32.0-36.5); MEAN CORPUSCULAR VOLUME 95.4 fl (80.0-96.0); MONO # 0.6 10^3/uL (0.0-0.8); MONO % 4.7 % (2.0-8.0); NEUTROPHILS # 12.1 10^3/uL (1.5-8.5); PLATELET COUNT, AUTOMATED 205 10^3/uL (150-450); RED BLOOD COUNT 3.93 10^6/uL (4.00-5.40); WHITE BLOOD COUNT 13.6 10^3/uL (4.0-10.0)
[2022-01-10 07:11] LABS: BLOOD UREA NITROGEN 12 MG/DL (7-18); CALCIUM LEVEL 8.8 MG/DL (8.8-10.2); CARBON DIOXIDE LEVEL 27 MEQ/L (21-32); CHLORIDE LEVEL 106 MEQ/L (98-107); CREATININE FOR GFR 0.72 MG/DL (0.55-1.30); GLOMERULAR FILTRATION RATE > 60.0 (>45); GLUCOSE, FASTING 134 MG/DL (70-100); POTASSIUM SERUM 4.1 MEQ/L (3.5-5.1); SODIUM LEVEL 136 MEQ/L (136-145)
[2022-01-10] MEDS: SYMBICORT 160/4.5MCG INHALER 6GM INH SCH ×2 (07:15→19:27)
[2022-01-10] MEDS ORDERED: ENOXAPARIN 40MG/0.4ML SYRINGE (J1650 PER 10MG) SC SCH (09:00)
[2022-01-10] MEDS: levETIRAcetam 250MG TABLET (KEPPRA) PO SCH ×2 (09:44→20:58)
[2022-01-10] MEDS: KETOROLAC 30 MG/ML 1ML VIAL IV PRN ×2 (09:44→16:59)
[2022-01-10] MEDS: PANTOPRAZOLE 40MG TAB (PROTONIX) PO SCH ×2 (09:45→20:58)
[2022-01-10] MEDS: ASPIRIN 81MG ENTERIC TABLET PO SCH (09:45)
[2022-01-10] MEDS: GABAPENTIN 300 MG CAP PO SCH ×3 (09:45→20:58)
[2022-01-10] MEDS: PRAMIPEXOLE 1 MG TAB PO SCH ×2 (09:45→20:58)
[2022-01-10] MEDS: hydrOXYzine 50 MG TAB PO SCH ×3 (09:45→20:57)
[2022-01-10] MEDS: PRAMIPEXOLE 0.25 MG TAB PO SCH ×2 (09:45→20:58)
[2022-01-10] MEDS: ACETAMINOPHEN TAB 650MG DOSE (2X325MG) PO PRN ×2 (12:06→20:59)
[2022-01-10] MEDS: MIDODRINE 5 MG TAB PO SCH (16:59)
[2022-01-10] MEDS: DULoxetine 30MG CAPSULE (CYMBALTA) PO SCH (20:58)
[2022-01-10] MEDS: AZITHROMYCIN 250MG TABLET PO SCH (20:58)
[2022-01-10] MEDS: traZODone 50 MG TAB PO SCH (20:58)
[2022-01-10] MEDS: NICOTINE 21MG/24HR 1 EA TRANSDERMAL TD SCH (20:59)
[2022-01-10] MEDS ORDERED: NS 500 ML IV ONE (21:05)
[2022-01-11] VITALS (8 sets, daily range): BP systolic 106–125; BP diastolic 57–74; O2SAT 90–94
[2022-01-11] MEDS: LEVALBUTEROL 1.25 MG/0.5 ML CONCENTRATE NEB INH SCH ×6 (04:40→23:26)
[2022-01-11] MEDS: methylPREDNISolone 40MG 1ML VIAL IV SCH ×2 (05:31→16:55)
[2022-01-11 06:27] LABS: BASO % 0.1 % (0.0-1.0); HEMATOCRIT 32.4 % (36.0-47.0); HEMOGLOBIN 10.5 g/dl (12.0-15.5); LYMPH # 0.7 10^3/uL (1.5-5.0); LYMPH % 5.9 % (24.0-44.0); MEAN CORPUSCULAR HEMOGLOBIN 31.2 pg (27.0-33.0); MEAN CORPUSCULAR HGB CONC 32.4 g/dl (32.0-36.5); MEAN CORPUSCULAR VOLUME 96.1 fl (80.0-96.0); MONO # 0.4 10^3/uL (0.0-0.8); MONO % 3.6 % (2.0-8.0); NEUTROPHILS # 10.6 10^3/uL (1.5-8.5); NEUTROPHILS % 89.8 % (36.0-66.0); PLATELET COUNT, AUTOMATED 178 10^3/uL (150-450); RED BLOOD COUNT 3.37 10^6/uL (4.00-5.40); WHITE BLOOD COUNT 11.8 10^3/uL (4.0-10.0)
[2022-01-11 07:06] LABS: BLOOD UREA NITROGEN 14 MG/DL (7-18); CARBON DIOXIDE LEVEL 23 MEQ/L (21-32); CHLORIDE LEVEL 111 MEQ/L (98-107); CREATININE FOR GFR 0.65 MG/DL (0.55-1.30); GLOMERULAR FILTRATION RATE > 60.0 (>45); GLUCOSE, FASTING 138 MG/DL (70-100); POTASSIUM SERUM 4.1 MEQ/L (3.5-5.1); SODIUM LEVEL 141 MEQ/L (136-145)
[2022-01-11] MEDS: SYMBICORT 160/4.5MCG INHALER 6GM INH SCH ×2 (07:14→19:04)
[2022-01-11] MEDS: MIDODRINE 5 MG TAB PO SCH ×3 (08:00→16:00)
[2022-01-11] MEDS: PANTOPRAZOLE 40MG TAB (PROTONIX) PO SCH ×2 (08:47→20:56)
[2022-01-11] MEDS: PRAMIPEXOLE 0.25 MG TAB PO SCH ×2 (08:47→20:56)
[2022-01-11] MEDS: GABAPENTIN 300 MG CAP PO SCH ×3 (08:47→20:56)
[2022-01-11] MEDS: PRAMIPEXOLE 1 MG TAB PO SCH ×2 (08:47→20:56)
[2022-01-11] MEDS: ASPIRIN 81MG ENTERIC TABLET PO SCH (08:48)
[2022-01-11] MEDS: levETIRAcetam 250MG TABLET (KEPPRA) PO SCH ×2 (08:48→20:56)
[2022-01-11] MEDS: ENOXAPARIN 30MG/0.3ML SYRINGE (J1650 PER 10MG) SC SCH (08:48)
[2022-01-11] MEDS: hydrOXYzine 50 MG TAB PO SCH ×3 (08:48→20:55)
[2022-01-11] MEDS: ACETAMINOPHEN TAB 650MG DOSE (2X325MG) PO PRN (11:00)
[2022-01-11] MEDS: KETOROLAC 30 MG/ML 1ML VIAL IV PRN ×2 (11:54→20:57)
[2022-01-11] MEDS: traZODone 50 MG TAB PO SCH (20:55)
[2022-01-11] MEDS: DULoxetine 30MG CAPSULE (CYMBALTA) PO SCH (20:55)
[2022-01-11] MEDS: AZITHROMYCIN 250MG TABLET PO SCH (20:56)
[2022-01-11] MEDS: NICOTINE 21MG/24HR 1 EA TRANSDERMAL TD SCH (20:56)
[2022-01-12] VITALS: O2SAT 95
[2022-01-12] MEDS: LEVALBUTEROL 1.25 MG/0.5 ML CONCENTRATE NEB INH SCH ×6 (03:05→23:43)
[2022-01-12] MEDS: methylPREDNISolone 40MG 1ML VIAL IV SCH ×2 (05:27→17:09)
[2022-01-12] MEDS: KETOROLAC 30 MG/ML 1ML VIAL IV PRN ×3 (05:28→21:39)
[2022-01-12] MEDS ORDERED: LEVALBUTEROL 1.25 MG/0.5 ML CONCENTRATE NEB INH PRN (05:55)
[2022-01-12 06:00] VITALS: BP 144/78
[2022-01-12 06:10] LABS: BASO % 0.1 % (0.0-1.0); HEMATOCRIT 35.6 % (36.0-47.0); HEMOGLOBIN 11.4 g/dl (12.0-15.5); LYMPH # 1.9 10^3/uL (1.5-5.0); LYMPH % 16.1 % (24.0-44.0); MEAN CORPUSCULAR VOLUME 96.7 fl (80.0-96.0); MONO # 0.6 10^3/uL (0.0-0.8); PLATELET COUNT, AUTOMATED 230 10^3/uL (150-450); RED BLOOD COUNT 3.68 10^6/uL (4.00-5.40); WHITE BLOOD COUNT 11.5 10^3/uL (4.0-10.0)
[2022-01-12 06:41] LABS: BLOOD UREA NITROGEN 12 MG/DL (7-18); CALCIUM LEVEL 8.8 MG/DL (8.8-10.2); CARBON DIOXIDE LEVEL 22 MEQ/L (21-32); CHLORIDE LEVEL 111 MEQ/L (98-107); CREATININE FOR GFR 0.76 MG/DL (0.55-1.30); GLOMERULAR FILTRATION RATE > 60.0 (>45); GLUCOSE, FASTING 111 MG/DL (70-100); POTASSIUM SERUM 3.4 MEQ/L (3.5-5.1); SODIUM LEVEL 140 MEQ/L (136-145)
[2022-01-12] MEDS ORDERED: POTASSIUM CHLORIDE 10MEQ SR TABLET PO ONE (07:30)
[2022-01-12] MEDS: SYMBICORT 160/4.5MCG INHALER 6GM INH SCH ×2 (07:40→19:23)
[2022-01-12] MEDS: PRAMIPEXOLE 1 MG TAB PO SCH ×2 (08:34→21:36)
[2022-01-12] MEDS: PRAMIPEXOLE 0.25 MG TAB PO SCH ×2 (08:34→21:36)
[2022-01-12] MEDS: GABAPENTIN 300 MG CAP PO SCH ×3 (08:35→21:36)
[2022-01-12] MEDS: ASPIRIN 81MG ENTERIC TABLET PO SCH (08:35)
[2022-01-12] MEDS: hydrOXYzine 50 MG TAB PO SCH ×3 (08:35→21:35)
[2022-01-12] MEDS: PANTOPRAZOLE 40MG TAB (PROTONIX) PO SCH ×2 (08:35→21:37)
[2022-01-12] MEDS: levETIRAcetam 250MG TABLET (KEPPRA) PO SCH ×2 (08:35→21:35)
[2022-01-12] MEDS: ENOXAPARIN 30MG/0.3ML SYRINGE (J1650 PER 10MG) SC SCH (08:36)
[2022-01-12 12:30] VITALS: BP 220/90
[2022-01-12] MEDS ORDERED: IPRATROPIUM 0.5MG/ALBUTEROL 2.5MG INH SOL UD 3ML (DUONEB) NEB STA (12:33)
[2022-01-12 12:56] VITALS: BP 158/92
[2022-01-12 14:00] VITALS: BP 158/84
[2022-01-12 21:00] VITALS: BP 134/87
[2022-01-12] MEDS: AZITHROMYCIN 250MG TABLET PO SCH (21:35)
[2022-01-12] MEDS: DULoxetine 30MG CAPSULE (CYMBALTA) PO SCH (21:36)
[2022-01-12] MEDS: NICOTINE 21MG/24HR 1 EA TRANSDERMAL TD SCH (21:37)
[2022-01-12] MEDS: traZODone 50 MG TAB PO SCH (21:37)
[2022-01-13 02:49] VITALS: O2SAT 91
[2022-01-13] MEDS: LEVALBUTEROL 1.25 MG/0.5 ML CONCENTRATE NEB INH SCH ×5 (03:36→20:07)
[2022-01-13] MEDS: methylPREDNISolone 40MG 1ML VIAL IV SCH ×2 (04:50→16:23)
[2022-01-13 05:22] VITALS: BP 140/80
[2022-01-13 06:10] LABS: BASO % 0.2 % (0.0-1.0); EOS % 0.2 % (0.0-3.0); HEMATOCRIT 33.1 % (36.0-47.0); HEMOGLOBIN 10.6 g/dl (12.0-15.5); LYMPH # 1.5 10^3/uL (1.5-5.0); LYMPH % 22.9 % (24.0-44.0); MEAN CORPUSCULAR HEMOGLOBIN 30.7 pg (27.0-33.0); MEAN CORPUSCULAR VOLUME 95.9 fl (80.0-96.0); MONO # 0.5 10^3/uL (0.0-0.8); MONO % 7.6 % (2.0-8.0); NEUTROPHILS # 4.5 10^3/uL (1.5-8.5); PLATELET COUNT, AUTOMATED 219 10^3/uL (150-450); RED BLOOD COUNT 3.45 10^6/uL (4.00-5.40); WHITE BLOOD COUNT 6.6 10^3/uL (4.0-10.0)
[2022-01-13 06:47] LABS: BLOOD UREA NITROGEN 12 MG/DL (7-18); CALCIUM LEVEL 8.8 MG/DL (8.8-10.2); CARBON DIOXIDE LEVEL 26 MEQ/L (21-32); CHLORIDE LEVEL 110 MEQ/L (98-107); CREATININE FOR GFR 0.65 MG/DL (0.55-1.30); GLOMERULAR FILTRATION RATE > 60.0 (>45); GLUCOSE, FASTING 95 MG/DL (70-100); POTASSIUM SERUM 3.8 MEQ/L (3.5-5.1); SODIUM LEVEL 139 MEQ/L (136-145)
[2022-01-13] MEDS: SYMBICORT 160/4.5MCG INHALER 6GM INH SCH ×2 (07:13→20:07)
[2022-01-13] MEDS: ENOXAPARIN 30MG/0.3ML SYRINGE (J1650 PER 10MG) SC SCH (09:02)
[2022-01-13] MEDS: hydrOXYzine 50 MG TAB PO SCH ×3 (09:03→21:14)
[2022-01-13] MEDS: KETOROLAC 30 MG/ML 1ML VIAL IV PRN (09:03)
[2022-01-13] MEDS: PRAMIPEXOLE 0.25 MG TAB PO SCH ×2 (09:03→21:13)
[2022-01-13] MEDS: ASPIRIN 81MG ENTERIC TABLET PO SCH (09:03)
[2022-01-13] MEDS: PRAMIPEXOLE 1 MG TAB PO SCH ×2 (09:03→21:13)
[2022-01-13] MEDS: levETIRAcetam 250MG TABLET (KEPPRA) PO SCH ×2 (09:03→21:13)
[2022-01-13] MEDS: GABAPENTIN 300 MG CAP PO SCH ×3 (09:03→21:14)
[2022-01-13] MEDS: PANTOPRAZOLE 40MG TAB (PROTONIX) PO SCH ×2 (09:03→21:14)
[2022-01-13 12:40] VITALS: O2SAT 93
[2022-01-13 14:00] VITALS: BP 146/80
[2022-01-13] MEDS: NICOTINE 21MG/24HR 1 EA TRANSDERMAL TD SCH (21:12)
[2022-01-13] MEDS: DULoxetine 30MG CAPSULE (CYMBALTA) PO SCH (21:12)
[2022-01-13] MEDS: traZODone 50 MG TAB PO SCH (21:13)
[2022-01-13] MEDS: AZITHROMYCIN 250MG TABLET PO SCH (21:13)
[2022-01-13 21:48] VITALS: BP 155/77
[2022-01-13 23:29] VITALS: O2SAT 92
[2022-01-14] MEDS: LEVALBUTEROL 1.25 MG/0.5 ML CONCENTRATE NEB INH SCH ×4 (02:42→11:13)
[2022-01-14] MEDS: methylPREDNISolone 40MG 1ML VIAL IV SCH (04:13)
[2022-01-14] MEDS: KETOROLAC 30 MG/ML 1ML VIAL IV PRN (04:17)
[2022-01-14 06:00] VITALS: BP 154/89
[2022-01-14 06:09] LABS: BASO % 0.1 % (0.0-1.0); EOS % 0.4 % (0.0-3.0); HEMATOCRIT 34.9 % (36.0-47.0); HEMOGLOBIN 11.6 g/dl (12.0-15.5); LYMPH # 1.8 10^3/uL (1.5-5.0); LYMPH % 21.5 % (24.0-44.0); MEAN CORPUSCULAR HEMOGLOBIN 31.3 pg (27.0-33.0); MEAN CORPUSCULAR HGB CONC 33.2 g/dl (32.0-36.5); MEAN CORPUSCULAR VOLUME 94.1 fl (80.0-96.0); MONO # 0.6 10^3/uL (0.0-0.8); MONO % 6.8 % (2.0-8.0); NEUTROPHILS # 5.9 10^3/uL (1.5-8.5); NEUTROPHILS % 69.8 % (36.0-66.0); PLATELET COUNT, AUTOMATED 227 10^3/uL (150-450); RED BLOOD COUNT 3.71 10^6/uL (4.00-5.40); WHITE BLOOD COUNT 8.5 10^3/uL (4.0-10.0)
[2022-01-14 06:40] LABS: BLOOD UREA NITROGEN 10 MG/DL (7-18); CALCIUM LEVEL 8.9 MG/DL (8.8-10.2); CARBON DIOXIDE LEVEL 30 MEQ/L (21-32); CHLORIDE LEVEL 105 MEQ/L (98-107); CREATININE FOR GFR 0.74 MG/DL (0.55-1.30); GLOMERULAR FILTRATION RATE > 60.0 (>45); GLUCOSE, FASTING 99 MG/DL (70-100); POTASSIUM SERUM 3.1 MEQ/L (3.5-5.1); SODIUM LEVEL 139 MEQ/L (136-145)
[2022-01-14] MEDS: SYMBICORT 160/4.5MCG INHALER 6GM INH SCH (07:16)
[2022-01-14] MEDS: PRAMIPEXOLE 1 MG TAB PO SCH (09:00)
[2022-01-14] MEDS ORDERED: predniSONE 20 MG TAB PO SCH (09:00)
[2022-01-14] MEDS: ASPIRIN 81MG ENTERIC TABLET PO SCH (09:00)
[2022-01-14] MEDS ORDERED: POTASSIUM CHLORIDE 10MEQ SR TABLET PO SCH (09:00)
[2022-01-14] MEDS: levETIRAcetam 250MG TABLET (KEPPRA) PO SCH (09:01)
[2022-01-14] MEDS: PRAMIPEXOLE 0.25 MG TAB PO SCH (09:01)
[2022-01-14] MEDS: ENOXAPARIN 30MG/0.3ML SYRINGE (J1650 PER 10MG) SC SCH (09:01)
[2022-01-14] MEDS: GABAPENTIN 300 MG CAP PO SCH (09:01)
[2022-01-14] MEDS: PANTOPRAZOLE 40MG TAB (PROTONIX) PO SCH (09:01)
[2022-01-14] MEDS: hydrOXYzine 50 MG TAB PO SCH (09:10)
[2022-01-14] MEDS ORDERED: BUDE0.5S6 NEB (10:17)
[2022-01-14] MEDS ORDERED: ALBU2.5V10 PO (10:17)
[2022-01-14] MEDS ORDERED: PANT40TA29 PO (10:17)
[2022-01-14] MEDS ORDERED: PRED10TA2 PO (10:17)
[2022-01-14] MEDS ORDERED: PRED20TA PO (10:19)
[2022-01-14] MEDS ORDERED: DOXY100T PO (10:19)
[2022-01-14 10:48] VITALS: O2SAT 90
== END 2022-01-14 12:17 | disposition home health service (06) | DRG 372 ==
LOC: M ED 08:04 → EDBD 08:04 → M ED INP 18:08 → M MSPAV 20:06
PROVIDERS: ADMIT Internal Medicine Nephrology; ATTEND Internal Medicine Nephrology
DX: A04.4 Other intestinal Escherichia coli infections (principal); J44.1 Chronic obstructive pulmonary disease with (acute) exacerbation; J44.0 Chronic obstructive pulmonary disease with (acute) lower respiratory infection; R91.8 Other nonspecific abnormal finding of lung field; I10 Essential (primary) hypertension; M81.0 Age-related osteoporosis without current pathological fracture; K21.9 Gastro-esophageal reflux disease without esophagitis; F32.9 Major depressive disorder, single episode, unspecified; G47.00 Insomnia, unspecified; G25.81 Restless legs syndrome; R41.3 Other amnesia; G40.909 Epilepsy, unspecified, not intractable, without status epilepticus; I95.1 Orthostatic hypotension; B97.89 Other viral agents as the cause of diseases classified elsewhere; E86.0 Dehydration; F41.9 Anxiety disorder, unspecified; K58.0 Irritable bowel syndrome with diarrhea; Z79.82 Long term (current) use of aspirin; Z79.899 Other long term (current) drug therapy; Z88.2 Allergy status to sulfonamides; Z88.0 Allergy status to penicillin

== ENCOUNTER 2022-02-05 20:40 | Inpatient (IN) | payer MEDICARE ==
[~2022-02-05] VITALS: Ht 157.5 cm; Wt 54.1 kg
[~2022-02-05 20:40] MED LIST changes: -BUDE0.5S6 INH; -HOME MED LIST COMPLETE! XX SCH; -HYDR-3715 PO; -LIDOCAINE 1% MDV 20ML VIAL As Ordered ONE
[2022-02-05] MEDS ORDERED: NS 1,000 ML IV SCH (21:10)
[2022-02-05] MEDS ORDERED: LIDOCAINE 2% MDV 20ML VIAL SC ONE (21:55)
[2022-02-05 22:07] LABS: BASO % 0.2 % (0.0-1.0); EOS % 0.7 % (0.0-3.0); HEMOGLOBIN 14.1 g/dl (12.0-15.5); LYMPH # 0.5 10^3/uL (1.5-5.0); LYMPH % 8.9 % (24.0-44.0); MEAN CORPUSCULAR HEMOGLOBIN 32.3 pg (27.0-33.0); MEAN CORPUSCULAR HGB CONC 33.6 g/dl (32.0-36.5); MEAN CORPUSCULAR VOLUME 96.1 fl (80.0-96.0); MONO # 0.3 10^3/uL (0.0-0.8); MONO % 5.1 % (2.0-8.0); NEUTROPHILS # 5.2 10^3/uL (1.5-8.5); NEUTROPHILS % 84.6 % (36.0-66.0); PLATELET COUNT, AUTOMATED 180 10^3/uL (150-450); RED BLOOD COUNT 4.37 10^6/uL (4.00-5.40); WHITE BLOOD COUNT 6.1 10^3/uL (4.0-10.0)
[2022-02-05] MEDS ORDERED: MIDAZOLAM 5MG/ML 1ML VIAL (J2250 PER 1MG) As Ordered ONE (22:11)
[2022-02-05 22:18] LABS: INR 0.87; PROTHROMBIN TIME 12.2 SECONDS (12.7-14.5)
[2022-02-05 22:39] LABS: RSV AMPLIFICATION NEGATIVE (NEGATIVE)
[2022-02-05 22:48] LABS: ALBUMIN 3.9 GM/DL (3.2-5.2); ALT/SGPT 21 U/L (12-78); BILIRUBIN,DIRECT 0.1 MG/DL (0.0-0.2); BILIRUBIN,TOTAL 0.3 MG/DL (0.2-1.0); BLOOD UREA NITROGEN 8 MG/DL (7-18); CALCIUM LEVEL 9.8 MG/DL (8.8-10.2); CARBON DIOXIDE LEVEL 25 MEQ/L (21-32); CHLORIDE LEVEL 107 MEQ/L (98-107); CREATININE FOR GFR 0.65 MG/DL (0.55-1.30); GLOMERULAR FILTRATION RATE > 60.0 (>45); GLUCOSE, FASTING 115 MG/DL (70-100); POTASSIUM SERUM 4.1 MEQ/L (3.5-5.1); SODIUM LEVEL 139 MEQ/L (136-145); TOTAL PROTEIN 7.3 GM/DL (6.4-8.2)
[2022-02-05 22:49] LABS: CK-MB VALUE MASS 2.9 NG/ML (<3.6); MB/CK RELATIVE INDEX 4.33 (< OR =4)
[2022-02-05] MEDS ORDERED: MIDAZOLAM INJ 2MG/2ML VIAL (J2250 PER 1MG) IV STA ×2 (22:57)
[2022-02-06] VITALS (8 sets, daily range): BP systolic 134–184; BP diastolic 65–90; O2SAT 96
[2022-02-06] MEDS ORDERED: BUDE0.5S6 INH (00:39)
[2022-02-06] MEDS ORDERED: ALBU2.5V10 INH (00:39)
[2022-02-06] MEDS ORDERED: HOME MED LIST COMPLETE! XX SCH (00:40)
[2022-02-06] MEDS: MORPHINE 2 MG/ML 1ML VIAL IV PRN ×3 (00:58→11:26)
[2022-02-06] MEDS ORDERED: MORPHINE 2 MG/ML 1ML VIAL IV ONE (05:00)
[2022-02-06] MEDS: traZODone 50 MG TAB PO SCH ×2 (05:10→20:18)
[2022-02-06] MEDS: DULoxetine 30MG CAPSULE (CYMBALTA) PO SCH ×2 (05:10→20:18)
[2022-02-06] MEDS ORDERED: PILL CUTTER 1 EACH XX PRN (05:20)
[2022-02-06 07:06] LABS: HEMATOCRIT 40.6 % (36.0-47.0); HEMOGLOBIN 13.1 g/dl (12.0-15.5); MEAN CORPUSCULAR HEMOGLOBIN 32.6 pg (27.0-33.0); MEAN CORPUSCULAR HGB CONC 32.3 g/dl (32.0-36.5); PLATELET COUNT, AUTOMATED 172 10^3/uL (150-450); RED BLOOD COUNT 4.02 10^6/uL (4.00-5.40); WHITE BLOOD COUNT 6.5 10^3/uL (4.0-10.0)
[2022-02-06 07:39] LABS: ALBUMIN 3.8 GM/DL (3.2-5.2); ALT/SGPT 21 U/L (12-78); BILIRUBIN,TOTAL 0.4 MG/DL (0.2-1.0); BLOOD UREA NITROGEN 11 MG/DL (7-18); CALCIUM LEVEL 9.5 MG/DL (8.8-10.2); CARBON DIOXIDE LEVEL 26 MEQ/L (21-32); CHLORIDE LEVEL 108 MEQ/L (98-107); GLOMERULAR FILTRATION RATE > 60.0 (>45); GLUCOSE, FASTING 140 MG/DL (70-100); POTASSIUM SERUM 4.9 MEQ/L (3.5-5.1); SODIUM LEVEL 139 MEQ/L (136-145); TOTAL PROTEIN 6.9 GM/DL (6.4-8.2)
[2022-02-06] MEDS: MIDODRINE 5 MG TAB PO SCH ×2 (07:54→11:29)
[2022-02-06] MEDS: BUDESONIDE 0.5 MG/2 ML INHALATION SUSPENSION INH SCH ×2 (08:00→19:09)
[2022-02-06] MEDS: DIVALPROEX 250 MG TAB PO SCH ×2 (09:18→20:19)
[2022-02-06] MEDS: GABAPENTIN 300 MG CAP PO SCH ×3 (09:18→20:19)
[2022-02-06] MEDS: NORCO, ANEXSIA 5/325MG TABLET (HYDROcodone/ACETAMINOPHEN) PO PRN ×2 (09:18→16:08)
[2022-02-06] MEDS: OMEPRAZOLE 20MG CAP PO SCH (09:18)
[2022-02-06] MEDS: CETIRIZINE (ZyrTEC) 10 MG TAB PO SCH (09:19)
[2022-02-06] MEDS: hydrOXYzine 50 MG TAB PO SCH ×3 (09:19→20:19)
[2022-02-06] MEDS: MECLIZINE 25 MG TABLET PO SCH ×2 (09:19→20:19)
[2022-02-06] MEDS: levETIRAcetam 250MG TABLET (KEPPRA) PO SCH ×2 (09:19→20:19)
[2022-02-06] MEDS: ENOXAPARIN 40MG/0.4ML SYRINGE (J1650 PER 10MG) SC SCH ×2 (09:19→09:27)
[2022-02-06] MEDS: PRAMIPEXOLE 1 MG TAB PO SCH ×2 (09:58→21:08)
[2022-02-06] MEDS ORDERED: MORPHINE 2 MG/ML 1ML VIAL IV PRN (11:55)
[2022-02-06] MEDS ORDERED: MORPHINE 4 MG/ML 1ML VIAL/SYRINGE IV PRN (12:00)
[2022-02-06] MEDS ORDERED: hydrALAZINE 20MG/ML 1ML VIAL (J0360 PER 20MG) IV ONE (15:45)
[2022-02-06] MEDS: ALBUTEROL SULFATE 2.5 MG/0.5 ML INH NEB SOLN INH PRN (16:30)
[2022-02-06] MEDS: DICYCLOMINE 10 MG CAP PO SCH ×2 (17:00→20:18)
[2022-02-06] MEDS: ATORVASTATIN 20 MG TAB PO SCH (20:19)
[2022-02-06] MEDS: RAMELTEON 8 MG TAB (ROZEREM) PO SCH (20:19)
[2022-02-06] MEDS ORDERED: ONDANSETRON 4MG 2ML VIAL IV PRN (20:45)
[2022-02-07] VITALS (10 sets, daily range): BP systolic 97–131; BP diastolic 51–79; O2SAT 95
[2022-02-07] MEDS ORDERED: ACETAMINOPHEN TAB 650MG DOSE (2X325MG) PO PRN (00:25)
[2022-02-07 05:19] LABS: HEMATOCRIT 35.4 % (36.0-47.0); HEMOGLOBIN 11.5 g/dl (12.0-15.5); MEAN CORPUSCULAR HEMOGLOBIN 32.5 pg (27.0-33.0); MEAN CORPUSCULAR HGB CONC 32.5 g/dl (32.0-36.5); PLATELET COUNT, AUTOMATED 180 10^3/uL (150-450); RED BLOOD COUNT 3.54 10^6/uL (4.00-5.40); WHITE BLOOD COUNT 7.8 10^3/uL (4.0-10.0)
[2022-02-07 06:01] LABS: ALBUMIN 3.2 GM/DL (3.2-5.2); ALT/SGPT 17 U/L (12-78); BILIRUBIN,TOTAL 0.4 MG/DL (0.2-1.0); BLOOD UREA NITROGEN 14 MG/DL (7-18); CALCIUM LEVEL 8.5 MG/DL (8.8-10.2); CARBON DIOXIDE LEVEL 28 MEQ/L (21-32); CHLORIDE LEVEL 104 MEQ/L (98-107); CREATININE FOR GFR 0.76 MG/DL (0.55-1.30); GLOMERULAR FILTRATION RATE > 60.0 (>45); GLUCOSE, FASTING 100 MG/DL (70-100); POTASSIUM SERUM 3.8 MEQ/L (3.5-5.1); SODIUM LEVEL 138 MEQ/L (136-145)
[2022-02-07] MEDS: BUDESONIDE 0.5 MG/2 ML INHALATION SUSPENSION INH SCH ×2 (07:29→20:00)
[2022-02-07] MEDS: GABAPENTIN 300 MG CAP PO SCH ×3 (08:19→20:30)
[2022-02-07] MEDS: levETIRAcetam 250MG TABLET (KEPPRA) PO SCH ×2 (08:19→20:31)
[2022-02-07] MEDS: hydrOXYzine 50 MG TAB PO SCH ×3 (08:19→20:30)
[2022-02-07] MEDS: OMEPRAZOLE 20MG CAP PO SCH (08:19)
[2022-02-07] MEDS: CETIRIZINE (ZyrTEC) 10 MG TAB PO SCH (08:19)
[2022-02-07] MEDS: DIVALPROEX 250 MG TAB PO SCH ×2 (08:19→20:30)
[2022-02-07] MEDS: MECLIZINE 25 MG TABLET PO SCH ×2 (08:19→20:33)
[2022-02-07] MEDS: DICYCLOMINE 10 MG CAP PO SCH ×4 (08:20→20:30)
[2022-02-07] MEDS: NORCO, ANEXSIA 5/325MG TABLET (HYDROcodone/ACETAMINOPHEN) PO PRN ×2 (08:20→17:16)
[2022-02-07] MEDS: PRAMIPEXOLE 1 MG TAB PO SCH ×2 (10:49→20:30)
[2022-02-07] MEDS: traZODone 50 MG TAB PO SCH (20:30)
[2022-02-07] MEDS: RAMELTEON 8 MG TAB (ROZEREM) PO SCH (20:30)
[2022-02-07] MEDS: ATORVASTATIN 20 MG TAB PO SCH (20:30)
[2022-02-07] MEDS: DULoxetine 30MG CAPSULE (CYMBALTA) PO SCH (20:30)
[2022-02-08] VITALS: BP 101/58
[2022-02-08 04:00] VITALS: BP 99/59
[2022-02-08] MEDS: NORCO, ANEXSIA 5/325MG TABLET (HYDROcodone/ACETAMINOPHEN) PO PRN ×2 (05:45→12:33)
[2022-02-08 06:16] LABS: HEMATOCRIT 35.6 % (36.0-47.0); HEMOGLOBIN 11.4 g/dl (12.0-15.5); MEAN CORPUSCULAR HEMOGLOBIN 32.4 pg (27.0-33.0); MEAN CORPUSCULAR VOLUME 101.1 fl (80.0-96.0); PLATELET COUNT, AUTOMATED 166 10^3/uL (150-450); RED BLOOD COUNT 3.52 10^6/uL (4.00-5.40); WHITE BLOOD COUNT 6.7 10^3/uL (4.0-10.0)
[2022-02-08 07:01] LABS: ALBUMIN 2.9 GM/DL (3.2-5.2); ALT/SGPT 16 U/L (12-78); BILIRUBIN,TOTAL 0.2 MG/DL (0.2-1.0); BLOOD UREA NITROGEN 10 MG/DL (7-18); CALCIUM LEVEL 8.8 MG/DL (8.8-10.2); CARBON DIOXIDE LEVEL 29 MEQ/L (21-32); CHLORIDE LEVEL 106 MEQ/L (98-107); CREATININE FOR GFR 0.64 MG/DL (0.55-1.30); GLOMERULAR FILTRATION RATE > 60.0 (>45); GLUCOSE, FASTING 92 MG/DL (70-100); POTASSIUM SERUM 3.6 MEQ/L (3.5-5.1); SODIUM LEVEL 139 MEQ/L (136-145); TOTAL PROTEIN 5.9 GM/DL (6.4-8.2)
[2022-02-08] MEDS: ALBUTEROL SULFATE 2.5 MG/0.5 ML INH NEB SOLN INH PRN (07:59)
[2022-02-08] MEDS: BUDESONIDE 0.5 MG/2 ML INHALATION SUSPENSION INH SCH ×2 (07:59→19:19)
[2022-02-08 08:00] VITALS: BP 145/66
[2022-02-08] MEDS: OMEPRAZOLE 20MG CAP PO SCH (08:07)
[2022-02-08] MEDS: MECLIZINE 25 MG TABLET PO SCH ×2 (08:07→20:24)
[2022-02-08] MEDS: DICYCLOMINE 10 MG CAP PO SCH ×4 (08:07→20:24)
[2022-02-08] MEDS: CETIRIZINE (ZyrTEC) 10 MG TAB PO SCH (08:07)
[2022-02-08] MEDS: levETIRAcetam 250MG TABLET (KEPPRA) PO SCH ×2 (08:08→20:23)
[2022-02-08] MEDS: DIVALPROEX 250 MG TAB PO SCH ×2 (08:08→20:24)
[2022-02-08] MEDS: GABAPENTIN 300 MG CAP PO SCH ×3 (08:13→20:23)
[2022-02-08] MEDS: hydrOXYzine 50 MG TAB PO SCH ×3 (08:14→20:23)
[2022-02-08] MEDS: PRAMIPEXOLE 1 MG TAB PO SCH ×2 (08:14→20:22)
[2022-02-08] MEDS ORDERED: PERCOCET 5MG/325MG TAB PO PRN (10:40)
[2022-02-08 12:00] VITALS: BP 114/64
[2022-02-08 16:45] VITALS: BP 128/59
[2022-02-08 20:11] VITALS: BP 117/59
[2022-02-08] MEDS: RAMELTEON 8 MG TAB (ROZEREM) PO SCH (20:22)
[2022-02-08] MEDS: DULoxetine 30MG CAPSULE (CYMBALTA) PO SCH (20:23)
[2022-02-08] MEDS: ATORVASTATIN 20 MG TAB PO SCH (20:23)
[2022-02-08] MEDS: traZODone 50 MG TAB PO SCH (20:23)
[2022-02-09] VITALS (21 sets, daily range): BP systolic 100–121; BP diastolic 60–70; O2SAT 88–96
[2022-02-09] MEDS: NORCO, ANEXSIA 5/325MG TABLET (HYDROcodone/ACETAMINOPHEN) PO PRN ×2 (04:14→12:21)
[2022-02-09 05:28] LABS: HEMATOCRIT 34.5 % (36.0-47.0); HEMOGLOBIN 11.3 g/dl (12.0-15.5); MEAN CORPUSCULAR HEMOGLOBIN 32.3 pg (27.0-33.0); MEAN CORPUSCULAR HGB CONC 32.8 g/dl (32.0-36.5); MEAN CORPUSCULAR VOLUME 98.6 fl (80.0-96.0); PLATELET COUNT, AUTOMATED 176 10^3/uL (150-450); WHITE BLOOD COUNT 7.2 10^3/uL (4.0-10.0)
[2022-02-09 06:05] LABS: ALBUMIN 2.7 GM/DL (3.2-5.2); ALT/SGPT 14 U/L (12-78); BILIRUBIN,TOTAL 0.2 MG/DL (0.2-1.0); BLOOD UREA NITROGEN 9 MG/DL (7-18); CALCIUM LEVEL 8.6 MG/DL (8.8-10.2); CARBON DIOXIDE LEVEL 30 MEQ/L (21-32); CHLORIDE LEVEL 105 MEQ/L (98-107); CREATININE FOR GFR 0.58 MG/DL (0.55-1.30); GLOMERULAR FILTRATION RATE > 60.0 (>45); GLUCOSE, FASTING 98 MG/DL (70-100); POTASSIUM SERUM 3.3 MEQ/L (3.5-5.1); SODIUM LEVEL 139 MEQ/L (136-145); TOTAL PROTEIN 5.8 GM/DL (6.4-8.2)
[2022-02-09] MEDS: BUDESONIDE 0.5 MG/2 ML INHALATION SUSPENSION INH SCH ×2 (07:33→21:08)
[2022-02-09] MEDS: ALBUTEROL SULFATE 2.5 MG/0.5 ML INH NEB SOLN INH PRN ×2 (07:33→21:08)
[2022-02-09] MEDS: hydrOXYzine 50 MG TAB PO SCH ×3 (07:51→20:18)
[2022-02-09] MEDS: levETIRAcetam 250MG TABLET (KEPPRA) PO SCH ×2 (07:51→20:12)
[2022-02-09] MEDS: CETIRIZINE (ZyrTEC) 10 MG TAB PO SCH (07:51)
[2022-02-09] MEDS: DIVALPROEX 250 MG TAB PO SCH ×2 (07:51→20:11)
[2022-02-09] MEDS: DICYCLOMINE 10 MG CAP PO SCH ×4 (07:52→20:13)
[2022-02-09] MEDS: PRAMIPEXOLE 1 MG TAB PO SCH ×2 (07:52→20:12)
[2022-02-09] MEDS: GABAPENTIN 300 MG CAP PO SCH ×3 (07:52→20:12)
[2022-02-09] MEDS: MECLIZINE 25 MG TABLET PO SCH ×2 (07:52→20:13)
[2022-02-09] MEDS: OMEPRAZOLE 20MG CAP PO SCH (07:56)
[2022-02-09] MEDS ORDERED: POTASSIUM CHLORIDE 10MEQ SR TABLET PO ONE ×2 (08:00→09:00)
[2022-02-09] MEDS ORDERED: HYDR-3715 PO (15:33)
[2022-02-09] MEDS ORDERED: MIDO5TA PO (15:33)
[2022-02-09] MEDS ORDERED: ACET1TAB55 PO (15:33)
[2022-02-09] MEDS: MIDODRINE 2.5 MG TAB PO SCH (16:02)
[2022-02-09] MEDS: ATORVASTATIN 20 MG TAB PO SCH (20:12)
[2022-02-09] MEDS: RAMELTEON 8 MG TAB (ROZEREM) PO SCH (20:12)
[2022-02-09] MEDS: DULoxetine 30MG CAPSULE (CYMBALTA) PO SCH (20:13)
[2022-02-09] MEDS: traZODone 50 MG TAB PO SCH (20:13)
[2022-02-10] VITALS: BP 102/59
[2022-02-10 04:00] VITALS: BP 111/74
[2022-02-10] MEDS: NORCO, ANEXSIA 5/325MG TABLET (HYDROcodone/ACETAMINOPHEN) PO PRN (04:05)
[2022-02-10 05:58] LABS: HEMATOCRIT 33.4 % (36.0-47.0); HEMOGLOBIN 10.8 g/dl (12.0-15.5); MEAN CORPUSCULAR HEMOGLOBIN 32.6 pg (27.0-33.0); MEAN CORPUSCULAR HGB CONC 32.3 g/dl (32.0-36.5); MEAN CORPUSCULAR VOLUME 100.9 fl (80.0-96.0); PLATELET COUNT, AUTOMATED 180 10^3/uL (150-450); RED BLOOD COUNT 3.31 10^6/uL (4.00-5.40); WHITE BLOOD COUNT 4.9 10^3/uL (4.0-10.0)
[2022-02-10 06:38] LABS: ALBUMIN 2.7 GM/DL (3.2-5.2); ALT/SGPT 11 U/L (12-78); BILIRUBIN,TOTAL 0.3 MG/DL (0.2-1.0); BLOOD UREA NITROGEN 11 MG/DL (7-18); CALCIUM LEVEL 8.2 MG/DL (8.8-10.2); CARBON DIOXIDE LEVEL 30 MEQ/L (21-32); CHLORIDE LEVEL 107 MEQ/L (98-107); CREATININE FOR GFR 0.66 MG/DL (0.55-1.30); GLOMERULAR FILTRATION RATE > 60.0 (>45); GLUCOSE, FASTING 93 MG/DL (70-100); SODIUM LEVEL 141 MEQ/L (136-145); TOTAL PROTEIN 5.5 GM/DL (6.4-8.2)
[2022-02-10 06:39] LABS: POTASSIUM SERUM 4.5 MEQ/L (3.5-5.1)
[2022-02-10] MEDS: BUDESONIDE 0.5 MG/2 ML INHALATION SUSPENSION INH SCH ×2 (07:46→20:20)
[2022-02-10 07:53] VITALS: BP 112/67
[2022-02-10] MEDS: DIVALPROEX 250 MG TAB PO SCH ×2 (08:12→20:57)
[2022-02-10] MEDS: GABAPENTIN 300 MG CAP PO SCH ×3 (08:13→20:56)
[2022-02-10] MEDS: MIDODRINE 2.5 MG TAB PO SCH ×3 (08:13→16:54)
[2022-02-10] MEDS: DICYCLOMINE 10 MG CAP PO SCH ×4 (08:13→20:56)
[2022-02-10] MEDS: OMEPRAZOLE 20MG CAP PO SCH (08:13)
[2022-02-10] MEDS: CETIRIZINE (ZyrTEC) 10 MG TAB PO SCH (08:13)
[2022-02-10] MEDS: MECLIZINE 25 MG TABLET PO SCH ×2 (08:13→20:56)
[2022-02-10] MEDS: levETIRAcetam 250MG TABLET (KEPPRA) PO SCH ×2 (08:13→20:56)
[2022-02-10] MEDS: ENOXAPARIN 40MG/0.4ML SYRINGE (J1650 PER 10MG) SC SCH (08:14)
[2022-02-10] MEDS: PRAMIPEXOLE 1 MG TAB PO SCH ×2 (09:53→20:56)
[2022-02-10] MEDS: hydrOXYzine 50 MG TAB PO SCH ×3 (09:54→20:57)
[2022-02-10] MEDS ORDERED: MIRALAX *UNIT DOSE* 17GM PACKET PO PRN (12:15)
[2022-02-10] MEDS: BISACODYL 10 MG SUPP PR SCH ×2 (12:23→20:57)
[2022-02-10] MEDS: DOCUSATE SODIUM 100MG CAPSULE PO SCH ×2 (13:00→20:56)
[2022-02-10 16:00] VITALS: BP 128/75
[2022-02-10 20:00] VITALS: BP 124/63
[2022-02-10] MEDS: ALBUTEROL SULFATE 2.5 MG/0.5 ML INH NEB SOLN INH PRN (20:20)
[2022-02-10] MEDS: traZODone 50 MG TAB PO SCH (20:55)
[2022-02-10] MEDS: DULoxetine 30MG CAPSULE (CYMBALTA) PO SCH (20:56)
[2022-02-10] MEDS: ATORVASTATIN 20 MG TAB PO SCH (20:56)
[2022-02-10] MEDS: RAMELTEON 8 MG TAB (ROZEREM) PO SCH (20:56)
[2022-02-10] MEDS ORDERED: SENNA 8.6 MG TAB (SENOKOT) PO SCH (21:00)
[2022-02-11] MEDS: NORCO, ANEXSIA 5/325MG TABLET (HYDROcodone/ACETAMINOPHEN) PO PRN ×2 (03:03→09:33)
[2022-02-11] MEDS ORDERED: guaiFENesin ER 600 MG TAB PO PRN (03:10)
[2022-02-11 04:00] VITALS: BP 114/71
[2022-02-11 07:10] LABS: HEMATOCRIT 32.7 % (36.0-47.0); HEMOGLOBIN 10.7 g/dl (12.0-15.5); MEAN CORPUSCULAR HEMOGLOBIN 32.6 pg (27.0-33.0); MEAN CORPUSCULAR HGB CONC 32.7 g/dl (32.0-36.5); MEAN CORPUSCULAR VOLUME 99.7 fl (80.0-96.0); PLATELET COUNT, AUTOMATED 192 10^3/uL (150-450); RED BLOOD COUNT 3.28 10^6/uL (4.00-5.40); WHITE BLOOD COUNT 5.1 10^3/uL (4.0-10.0)
[2022-02-11] MEDS: BUDESONIDE 0.5 MG/2 ML INHALATION SUSPENSION INH SCH (07:32)
[2022-02-11] MEDS: MIDODRINE 2.5 MG TAB PO SCH (08:00)
[2022-02-11 08:02] LABS: ALBUMIN 2.8 GM/DL (3.2-5.2); ALT/SGPT 12 U/L (12-78); BILIRUBIN,TOTAL 0.3 MG/DL (0.2-1.0); BLOOD UREA NITROGEN 10 MG/DL (7-18); CALCIUM LEVEL 8.6 MG/DL (8.8-10.2); CARBON DIOXIDE LEVEL 31 MEQ/L (21-32); CHLORIDE LEVEL 107 MEQ/L (98-107); CREATININE FOR GFR 0.67 MG/DL (0.55-1.30); GLOMERULAR FILTRATION RATE > 60.0 (>45); GLUCOSE, FASTING 85 MG/DL (70-100); POTASSIUM SERUM 4.2 MEQ/L (3.5-5.1); SODIUM LEVEL 140 MEQ/L (136-145); TOTAL PROTEIN 5.5 GM/DL (6.4-8.2)
[2022-02-11 08:03] VITALS: BP 113/68
[2022-02-11] MEDS: DIVALPROEX 250 MG TAB PO SCH (08:33)
[2022-02-11] MEDS: DOCUSATE SODIUM 100MG CAPSULE PO SCH (08:34)
[2022-02-11] MEDS: CETIRIZINE (ZyrTEC) 10 MG TAB PO SCH (08:34)
[2022-02-11] MEDS: OMEPRAZOLE 20MG CAP PO SCH (08:34)
[2022-02-11] MEDS: DICYCLOMINE 10 MG CAP PO SCH (08:34)
[2022-02-11] MEDS: levETIRAcetam 250MG TABLET (KEPPRA) PO SCH (08:34)
[2022-02-11] MEDS: PRAMIPEXOLE 1 MG TAB PO SCH (08:34)
[2022-02-11] MEDS: MECLIZINE 25 MG TABLET PO SCH (08:37)
[2022-02-11] MEDS: GABAPENTIN 300 MG CAP PO SCH (08:37)
[2022-02-11] MEDS: hydrOXYzine 50 MG TAB PO SCH (08:37)
[2022-02-11] MEDS: ENOXAPARIN 40MG/0.4ML SYRINGE (J1650 PER 10MG) SC SCH (08:38)
[2022-02-11] MEDS: BISACODYL 10 MG SUPP PR SCH (08:38)
[2022-02-11 12:34] VITALS: BP 115/73
== END 2022-02-11 13:17 | disposition home health service (06) | DRG 200 ==
LOC: M ED 20:40 → M ED INP 23:20 → ENRESERV 02-06 09:54 → M ICU 02-06 11:02 → M PCU 02-08 16:45
PROVIDERS: ADMIT Family Medicine; ATTEND Family Medicine
PROC: 0BBC3ZX Excision of Right Upper Lung Lobe, Percutaneous Approach, Diagnostic (ICD-10-PCS; principal; 2022-02-05)
PROC: 0W9930Z Drainage of Right Pleural Cavity with Drainage Device, Percutaneous Approach (ICD-10-PCS; 2022-02-05)
DX: J95.811 Postprocedural pneumothorax (principal); J98.11 Atelectasis; J95.812 Postprocedural air leak; Y83.8 Other surgical procedures as the cause of abnormal reaction of the patient, or of later complication, without mention of misadventure at the time of the procedure; J44.9 Chronic obstructive pulmonary disease, unspecified; R91.8 Other nonspecific abnormal finding of lung field; K21.9 Gastro-esophageal reflux disease without esophagitis; K58.9 Irritable bowel syndrome, unspecified; G25.81 Restless legs syndrome; I10 Essential (primary) hypertension; F17.210 Nicotine dependence, cigarettes, uncomplicated; E87.6 Hypokalemia; M81.0 Age-related osteoporosis without current pathological fracture; F32.A Depression, unspecified; G47.00 Insomnia, unspecified; G31.84 Mild cognitive impairment of uncertain or unknown etiology; G40.909 Epilepsy, unspecified, not intractable, without status epilepticus; I95.1 Orthostatic hypotension; Z86.16 Personal history of COVID-19; Z90.49 Acquired absence of other specified parts of digestive tract; Z86.79 Personal history of other diseases of the circulatory system; Z79.899 Other long term (current) drug therapy; Z88.0 Allergy status to penicillin; Z88.2 Allergy status to sulfonamides

== ENCOUNTER → 2022-02-05 | Outpatient (CLI) | payer MEDICARE, MEDICAID ==
[~2022-02-05] MED LIST changes: +ALBU2.5V10 NEB; +ATOR40TA75 PO; +BUDE0.5S6 INH; +BUDE0.5S6 NEB; +D-20TAB PO; +DIVA250T67 PO; +DOXY100T PO; +HOME MED LIST COMPLETE! XX SCH; +HYDR-3363 PO; +HYDR-3715 PO; +LIDOCAINE 1% MDV 20ML VIAL As Ordered ONE; +MECL-86 PO; +PANT40TA29 PO; +PRED10TA2 PO; +ROZE8TAB16 PO; +TRAZ-186 PO
[2022-02-05 11:45] VITALS: BP 182/83
== END ==
LOC: M IRPRO 08:16
PROVIDERS: ATTEND Specialist
DX: R91.1 Solitary pulmonary nodule (principal); J95.811 Postprocedural pneumothorax

== ENCOUNTER → 2022-05-09 | Outpatient (REF) | payer MEDICARE, MEDICAID ==
[~2022-05-09] MED LIST changes: +BUDE0.5S6 INH; +HYDR-3715 PO
[2022-05-09 17:08] LABS: BASO % 0.3 % (0.0-1.0); EOS # 0.1 10^3/uL (0.0-0.5); EOS % 1.3 % (0.0-3.0); HEMATOCRIT 38.2 % (36.0-47.0); HEMOGLOBIN 12.3 g/dl (12.0-15.5); LYMPH % 21.4 % (24.0-44.0); MEAN CORPUSCULAR HEMOGLOBIN 31.1 pg (27.0-33.0); MEAN CORPUSCULAR HGB CONC 32.2 g/dl (32.0-36.5); MEAN CORPUSCULAR VOLUME 96.5 fl (80.0-96.0); MONO # 0.7 10^3/uL (0.0-0.8); MONO % 7.9 % (2.0-8.0); NEUTROPHILS # 6.5 10^3/uL (1.5-8.5); NEUTROPHILS % 68.8 % (36.0-66.0); PLATELET COUNT, AUTOMATED 185 10^3/uL (150-450); RED BLOOD COUNT 3.96 10^6/uL (4.00-5.40); WHITE BLOOD COUNT 9.4 10^3/uL (4.0-10.0)
[2022-05-09 17:39] LABS: CHOLESTEROL RISK RATIO 2.33 (<5); HDL CHOLESTEROL 70.1 MG/DL (>40); LDL CHOLESTEROL 83.1 MG/DL (<100)
[2022-05-09 17:42] LABS: THYROID STIMULATING HORMONE 1.279 uIU/ML (0.55-4.78)
== END ==
LOC: M LAB REF 16:29
PROVIDERS: ATTEND Pediatrics
DX: E78.5 Hyperlipidemia, unspecified (principal); D64.9 Anemia, unspecified

== ENCOUNTER → 2022-07-14 | Outpatient (CLI) | payer MEDICARE, MEDICAID | LOC: M WHC 12:53 | PROVIDERS: ATTEND Pediatrics | DX: M81.0 Age-related osteoporosis without current pathological fracture (principal) ==

== ENCOUNTER → 2022-10-06 | Outpatient (CLI) | payer MEDICARE, MEDICAID, OTHER | LOC: M WUC 11:28 | PROVIDERS: ATTEND Nurse Practitioner Family | DX: M79.662 Pain in left lower leg (principal) ==

== ENCOUNTER → 2022-10-08 | Outpatient (CLI) | payer MEDICARE, MEDICAID ==
[2022-10-08 14:44] LABS: BLOOD UREA NITROGEN 9 MG/DL (9-23); CREATININE FOR GFR 0.79 MG/DL (0.55-1.30); GLOMERULAR FILTRATION RATE > 60.0 (>45)
== END ==
LOC: M PLALAB 11:49
PROVIDERS: ATTEND Physician Assistant
DX: M79.605 Pain in left leg (principal)

== ENCOUNTER → 2022-11-25 | Outpatient (REF) | payer MEDICARE, MEDICAID ==
[2022-11-25 18:36] LABS: BASO % 0.5 % (0.0-1.0); EOS # 0.1 10^3/uL (0.0-0.5); EOS % 1.3 % (0.0-3.0); HEMOGLOBIN 13.4 g/dl (12.0-15.5); LYMPH # 2.2 10^3/uL (1.5-5.0); LYMPH % 25.4 % (24.0-44.0); MEAN CORPUSCULAR HEMOGLOBIN 29.5 pg (27.0-33.0); MEAN CORPUSCULAR HGB CONC 31.9 g/dl (32.0-36.5); MEAN CORPUSCULAR VOLUME 92.5 fl (80.0-96.0); MONO # 0.6 10^3/uL (0.0-0.8); MONO % 6.8 % (2.0-8.0); NEUTROPHILS # 5.6 10^3/uL (1.5-8.5); NEUTROPHILS % 65.5 % (36.0-66.0); PLATELET COUNT, AUTOMATED 189 10^3/uL (150-450); RED BLOOD COUNT 4.54 10^6/uL (4.00-5.40); WHITE BLOOD COUNT 8.6 10^3/uL (4.0-10.0)
[2022-11-25 19:12] LABS: ALBUMIN 3.7 G/DL (3.2-5.2); ALKALINE PHOSPHATASE 70 U/L (46-116); ALT/SGPT 11 U/L (7.0-40); AST/SGOT < 8 U/L (<34); BILIRUBIN,TOTAL 0.5 MG/DL (0.3-1.2); BLOOD UREA NITROGEN 6 MG/DL (9-23); CARBON DIOXIDE LEVEL 28 MMOL/L (20-31); CHLORIDE LEVEL 104 MMOL/L (98-107); CHOLESTEROL LEVEL 165 MG/DL (<200); CHOLESTEROL RISK RATIO 2.81 (<5); CREATININE FOR GFR 0.78 MG/DL (0.55-1.30); GLOMERULAR FILTRATION RATE > 60.0 (>45); GLUCOSE, FASTING 95 MG/DL (74-106); HDL CHOLESTEROL 58.7 MG/DL (>40); LDL CHOLESTEROL 83.5 MG/DL (<100); NON-HDL-C 106.3 MG/DL; POTASSIUM SERUM 4.4 MMOL/L (3.5-5.1); SODIUM LEVEL 142 MMOL/L (136-145); THYROID STIMULATING HORMONE 0.646 uIU/ML (0.55-4.78); TOTAL PROTEIN 6.9 G/DL (5.7-8.2); TRIGLYCERIDES LEVEL 114 MG/DL (<150)
== END ==
LOC: M LAB REF 16:39
PROVIDERS: ATTEND Pediatrics
DX: E78.5 Hyperlipidemia, unspecified (principal); F10.10 Alcohol abuse, uncomplicated

== ENCOUNTER → 2022-12-18 | Outpatient (CLI) | payer MEDICARE, MEDICAID | LOC: M PLARAD 14:46 | PROVIDERS: ATTEND Physician Assistant | DX: M79.662 Pain in left lower leg (principal) ==

== ENCOUNTER → 2023-01-15 | Outpatient (REF) | payer MEDICARE, MEDICAID ==
[~2023-01-15] MED LIST changes: +MECL-209 PO; -MECL1TAB31 PO
[2023-01-16 11:58] LABS: BLOOD UREA NITROGEN 7 MG/DL (9-23); CREATININE FOR GFR 0.75 MG/DL (0.55-1.30); GLOMERULAR FILTRATION RATE > 60.0 (>45)
== END ==
LOC: M WUC 11:20
PROVIDERS: ATTEND Physician Assistant
DX: M89.8X6 Other specified disorders of bone, lower leg (principal); M79.605 Pain in left leg

== ENCOUNTER → 2023-02-09 | Outpatient (CLI) | payer MEDICARE, MEDICAID | LOC: M RAD 06:31 | PROVIDERS: ATTEND Internal Medicine Pulmonary Disease | DX: Z12.2 Encounter for screening for malignant neoplasm of respiratory organs (principal); Z87.891 Personal history of nicotine dependence ==

== ENCOUNTER → 2023-06-26 | Outpatient (REF) | payer MEDICARE, MEDICAID ==
[~2023-06-26] MED LIST changes: +ALEN70TA82 PO; +CITA20TA6 PO; +DULO30CA9 PO; +IPRA6SP NARES; +STIO1AER INH; +TRAZ-257 PO
[2023-06-26 17:01] LABS: BASO % 0.5 % (0.0-1.0); EOS # 0.1 10^3/uL (0.0-0.5); EOS % 1.2 % (0.0-3.0); HEMATOCRIT 39.3 % (36.0-47.0); HEMOGLOBIN 12.8 g/dl (12.0-15.5); LYMPH # 1.1 10^3/uL (1.5-5.0); LYMPH % 19.7 % (24.0-44.0); MEAN CORPUSCULAR HEMOGLOBIN 30.8 pg (27.0-33.0); MEAN CORPUSCULAR HGB CONC 32.6 g/dl (32.0-36.5); MEAN CORPUSCULAR VOLUME 94.7 fl (80.0-96.0); MONO # 0.6 10^3/uL (0.0-0.8); MONO % 10.6 % (2.0-8.0); NEUTROPHILS # 3.9 10^3/uL (1.5-8.5); NEUTROPHILS % 67.8 % (36.0-66.0); PLATELET COUNT, AUTOMATED 169 10^3/uL (150-450); RED BLOOD COUNT 4.15 10^6/uL (4.00-5.40); WHITE BLOOD COUNT 5.7 10^3/uL (4.0-10.0)
[2023-06-26 17:12] LABS: ALBUMIN 3.4 G/DL (3.2-5.2); ALKALINE PHOSPHATASE 64 U/L (46-116); ALT/SGPT < 9 U/L (7.0-40); AST/SGOT 9 U/L (<34); BILIRUBIN,DIRECT 0.1 MG/DL (<0.4); BILIRUBIN,TOTAL 0.3 MG/DL (0.3-1.2); TOTAL PROTEIN 6.2 G/DL (5.7-8.2)
[2023-06-26 17:15] LABS: VITAMIN B12 LEVEL 609 PG/ML (211-911)
== END ==
LOC: M LAB REF 16:15
PROVIDERS: ATTEND Pediatrics
DX: F10.10 Alcohol abuse, uncomplicated (principal); E53.8 Deficiency of other specified B group vitamins

== ENCOUNTER 2023-06-27 10:09 | Emergency (ER) | payer MEDICARE, MEDICAID ==
[~2023-06-27] VITALS: Ht 160 cm; Wt 53.6 kg
[~2023-06-27 10:09] MED LIST changes: -ALEN70TA82 PO; -CITA20TA6 PO; -DULO30CA9 PO; -IPRA6SP NARES; -STIO1AER INH; -TRAZ-257 PO
[2023-06-27 11:08] LABS: VENOUS O2 SATURATION 86.4 % (60.0-80.0); VENOUS PARTIAL PRESSURE CO2 50.3 mmHg (38.0-50.0); VENOUS PARTIAL PRESSURE O2 53.4 mmHg (30.0-50.0); VENOUS PH 7.379 UNITS (7.330-7.430); VENOUS STANDARD HCO3 26.8 MMOL/L; VENOUS TOTAL CO2 30.6 MMOL/L (24.0-28.0)
[2023-06-27 11:12] LABS: BASO % 0.5 % (0.0-1.0); EOS # 0.1 10^3/uL (0.0-0.5); EOS % 0.8 % (0.0-3.0); HEMATOCRIT 37.7 % (36.0-47.0); HEMOGLOBIN 12.3 g/dl (12.0-15.5); LYMPH % 16.4 % (24.0-44.0); MEAN CORPUSCULAR HEMOGLOBIN 30.5 pg (27.0-33.0); MEAN CORPUSCULAR HGB CONC 32.6 g/dl (32.0-36.5); MEAN CORPUSCULAR VOLUME 93.5 fl (80.0-96.0); MONO # 0.6 10^3/uL (0.0-0.8); MONO % 10.8 % (2.0-8.0); NEUTROPHILS # 4.2 10^3/uL (1.5-8.5); NEUTROPHILS % 71.2 % (36.0-66.0); PLATELET COUNT, AUTOMATED 179 10^3/uL (150-450); RED BLOOD COUNT 4.03 10^6/uL (4.00-5.40); WHITE BLOOD COUNT 5.9 10^3/uL (4.0-10.0)
[2023-06-27 11:26] LABS: INR 1.02; PROTHROMBIN TIME 13.1 SECONDS (12.5-14.5)
[2023-06-27] MEDS: dexAMETHasone 20MG/5ML VIAL IV ONE (11:35)
[2023-06-27 11:42] LABS: CPK CREATINE PHOSPHOKINASE 34 U/L (34-145)
[2023-06-27 11:43] LABS: ALBUMIN 3.4 G/DL (3.2-5.2); ALKALINE PHOSPHATASE 62 U/L (46-116); ALT/SGPT < 9 U/L (7.0-40); AST/SGOT < 8 U/L (<34); BILIRUBIN,DIRECT 0.1 MG/DL (<0.4); BILIRUBIN,TOTAL 0.3 MG/DL (0.3-1.2); BLOOD UREA NITROGEN 11 MG/DL (9-23); CALCIUM LEVEL 8.7 MG/DL (8.3-10.6); CARBON DIOXIDE LEVEL 29 MMOL/L (20-31); CHLORIDE LEVEL 102 MMOL/L (98-107); CK-MB VALUE MASS < 1.0 NG/ML (<3.6); CREATININE FOR GFR 0.74 MG/DL (0.55-1.30); GLOMERULAR FILTRATION RATE > 60.0 (>45); GLUCOSE, FASTING 97 MG/DL (74-106); MB/CK RELATIVE INDEX 2.94 (< OR =4); POTASSIUM SERUM 3.9 MMOL/L (3.5-5.1); SODIUM LEVEL 136 MMOL/L (136-145); TOTAL PROTEIN 6.2 G/DL (5.7-8.2)
[2023-06-27 11:45] LABS: THYROID STIMULATING HORMONE 0.842 uIU/ML (0.55-4.78)
[2023-06-27] MEDS: COMBIVENT RESPIMAT 100-20MCG INHALER 4GM INH SCH (11:50)
[2023-06-27 11:54] LABS: PROCALCITONIN <0.04 ng/ml
[2023-06-27 12:37] LABS: CK-MB VALUE MASS < 1.0 NG/ML (<3.6)
[2023-06-27 12:39] LABS: CPK CREATINE PHOSPHOKINASE 37 U/L (34-145)
[2023-06-27] MEDS ORDERED: STIO1AER INH (14:58)
[2023-06-27] MEDS ORDERED: DULO30CA9 PO (14:58)
[2023-06-27] MEDS ORDERED: TRAZ-257 PO (14:58)
[2023-06-27] MEDS ORDERED: CITA20TA6 PO (14:58)
[2023-06-27] MEDS ORDERED: IPRA6SP NARES (14:58)
[2023-06-27] MEDS ORDERED: ACET1TAB55 PO (14:58)
[2023-06-27] MEDS ORDERED: ALEN70TA82 PO (14:58)
[2023-06-27] MEDS ORDERED: HOME MED LIST COMPLETE! XX SCH (15:00)
[2023-06-27] MEDS ORDERED: PRED20TA PO (15:02)
[2023-06-27 15:15] VITALS: O2SAT 94
[2023-06-27 15:28] VITALS: BP 117/60; TEMP 99.5
[2023-06-27] MEDS ORDERED: NIRMATRELVIR/RITONAVIR CO-PACK (EMERGENCY USE AUTH) PO SCH ×2 (16:00→21:00)
== END 2023-06-27 15:33 | disposition home or self-care (01) ==
LOC: EDBD 10:09 → M ED 10:09
DX: U07.1 COVID-19 (principal); I49.8 Other specified cardiac arrhythmias; I10 Essential (primary) hypertension; K21.9 Gastro-esophageal reflux disease without esophagitis; F17.210 Nicotine dependence, cigarettes, uncomplicated; K58.9 Irritable bowel syndrome, unspecified; Z88.0 Allergy status to penicillin; Z88.2 Allergy status to sulfonamides; Z79.1 Long term (current) use of non-steroidal anti-inflammatories (NSAID); Z79.899 Other long term (current) drug therapy; Z79.51 Long term (current) use of inhaled steroids; Z79.52 Long term (current) use of systemic steroids
CPT/HCPCS: 71045; 80048; 80076; 82550; 82553; 82803; 83605; 83880; 84145; 84443; 84484; 85025; 85610; 87040; 87486; 87581; 87633; 87798; 93005; 93041; 94640; 94664; 94760; 96374; 99285; J1100

== ENCOUNTER → 2023-08-05 | Outpatient (REF) | payer MEDICARE, MEDICAID ==
[~2023-08-05] MED LIST changes: +ALEN70TA82 PO; +CITA20TA6 PO; +DULO30CA9 PO; +IPRA6SP NARES; +STIO1AER INH; +TRAZ-257 PO
[2023-08-05 18:06] LABS: BASO # 0.1 10^3/uL (0.0-0.2); BASO % 0.7 % (0.0-1.0); EOS # 0.1 10^3/uL (0.0-0.5); EOS % 1.3 % (0.0-3.0); HEMATOCRIT 40.9 % (36.0-47.0); HEMOGLOBIN 13.2 g/dl (12.0-15.5); LYMPH # 2.7 10^3/uL (1.5-5.0); LYMPH % 29.9 % (24.0-44.0); MEAN CORPUSCULAR HEMOGLOBIN 30.5 pg (27.0-33.0); MEAN CORPUSCULAR HGB CONC 32.3 g/dl (32.0-36.5); MEAN CORPUSCULAR VOLUME 94.5 fl (80.0-96.0); MONO # 0.6 10^3/uL (0.0-0.8); MONO % 6.9 % (2.0-8.0); NEUTROPHILS # 5.6 10^3/uL (1.5-8.5); NEUTROPHILS % 60.8 % (36.0-66.0); PLATELET COUNT, AUTOMATED 305 10^3/uL (150-450); RED BLOOD COUNT 4.33 10^6/uL (4.00-5.40); WHITE BLOOD COUNT 9.1 10^3/uL (4.0-10.0)
[2023-08-05 18:26] LABS: ERYTHROCYTE SEDIMENTATION RATE 17 mm/hr (0-30)
== END ==
LOC: M LAB REF 17:17
PROVIDERS: ATTEND Pediatrics
DX: R51.9 Headache, unspecified (principal)

== ENCOUNTER → 2023-08-20 | Outpatient (REF) | payer OTHER, MEDICAID ==
[~2023-08-20] MED LIST changes: +ECOT81TA5 PO
[2023-08-20 17:59] LABS: BLOOD UREA NITROGEN 14 MG/DL (9-23); CALCIUM LEVEL 8.9 MG/DL (8.3-10.6); CARBON DIOXIDE LEVEL 31 MMOL/L (20-31); CHLORIDE LEVEL 105 MMOL/L (98-107); CREATININE FOR GFR 0.82 MG/DL (0.55-1.30); GLOMERULAR FILTRATION RATE > 60.0 (>45); GLUCOSE, FASTING 87 MG/DL (74-106); POTASSIUM SERUM 4.8 MMOL/L (3.5-5.1); SODIUM LEVEL 138 MMOL/L (136-145)
== END ==
LOC: M LAB REF 16:32
PROVIDERS: ATTEND Pediatrics
DX: Z01.818 Encounter for other preprocedural examination (principal)

== ENCOUNTER 2023-09-03 09:21 | Day surgery (SDC) | payer MEDICARE, MEDICAID ==
[~2023-09-03] VITALS: Ht 160 cm; Wt 54.9 kg
[2023-09-03] MEDS ORDERED: LR 1,000 ML IV SCH (10:00)
[2023-09-03] MEDS ORDERED: MIDAZOLAM INJ 2MG/2ML VIAL As Ordered ONE (10:57)
[2023-09-03] MEDS ORDERED: propofoL 200 MG/20 ML VIAL As Ordered ONE (10:57)
[2023-09-03] MEDS ORDERED: ACETAMINOPHEN 1000MG 100ML IV BAG As Ordered ONE (10:57)
[2023-09-03] MEDS ORDERED: KETOROLAC 60MG 2ML VIAL As Ordered ONE (10:57)
[2023-09-03] MEDS ORDERED: fentaNYL 100 MCG/2 ML INJECTION As Ordered ONE (10:58)
[2023-09-03] MEDS ORDERED: LIDOCAINE 2% 100MG/5ML SDV (FOR ANES.) As Ordered ONE (10:59)
[2023-09-03] MEDS: ceFAZolin SOD 2 GM in IV 1 EA IV ONE (11:55)
[2023-09-03] MEDS: LIDOCAINE 1% SDV 30ML VIAL As Ordered ONE (11:59)
[2023-09-03 12:45] VITALS: BP 137/65
[2023-09-03 13:28] VITALS: TEMP 97.6; O2SAT 91
== END 2023-09-03 13:40 | disposition home or self-care (01) ==
LOC: M SDC 09:21
PROVIDERS: ATTEND Podiatrist Foot & Ankle Surgery
DX: M20.11 Hallux valgus (acquired), right foot (principal); M21.611 Bunion of right foot; I10 Essential (primary) hypertension; I67.1 Cerebral aneurysm, nonruptured; E78.00 Pure hypercholesterolemia, unspecified; R56.9 Unspecified convulsions; K58.9 Irritable bowel syndrome, unspecified; G62.9 Polyneuropathy, unspecified; G47.30 Sleep apnea, unspecified; Z79.899 Other long term (current) drug therapy; F17.210 Nicotine dependence, cigarettes, uncomplicated; Z90.710 Acquired absence of both cervix and uterus
CPT/HCPCS: 28297; 88300; C1713; J0131; J0665; J0690; J1885; J2250; J3010

== ENCOUNTER 2023-09-04 21:50 | Emergency (ER) | payer MEDICARE, MEDICAID ==
[2023-09-04 22:28] VITALS: BP 161/86; TEMP 98.6; O2SAT 98
== END 2023-09-05 01:54 | disposition left against medical advice (07) ==
LOC: M ED 21:50 → EDBD 21:50 → M ED 09-05 01:54
DX: Z53.21 Procedure and treatment not carried out due to patient leaving prior to being seen by health care provider (principal)

== ENCOUNTER → 2023-10-15 | Outpatient (CLI) | payer MEDICARE, MEDICAID | LOC: M PLAIMG 13:06 | PROVIDERS: ATTEND Neurological Surgery | DX: M47.22 Other spondylosis with radiculopathy, cervical region (principal) ==

== ENCOUNTER → 2023-11-17 | Outpatient (REF) | payer MEDICARE, MEDICAID ==
[2023-11-17 14:41] LABS: BASO % 0.6 % (0.0-1.0); EOS # 0.2 10^3/uL (0.0-0.5); EOS % 2.7 % (0.0-3.0); HEMATOCRIT 43.6 % (36.0-47.0); HEMOGLOBIN 13.9 g/dl (12.0-15.5); MEAN CORPUSCULAR HEMOGLOBIN 30.6 pg (27.0-33.0); MEAN CORPUSCULAR HGB CONC 31.9 g/dl (32.0-36.5); MONO # 0.7 10^3/uL (0.0-0.8); MONO % 9.2 % (2.0-8.0); NEUTROPHILS # 4.2 10^3/uL (1.5-8.5); NEUTROPHILS % 59.1 % (36.0-66.0); PLATELET COUNT, AUTOMATED 191 10^3/uL (150-450); RED BLOOD COUNT 4.54 10^6/uL (4.00-5.40); WHITE BLOOD COUNT 7.1 10^3/uL (4.0-10.0)
[2023-11-17 14:46] LABS: ERYTHROCYTE SEDIMENTATION RATE 14 mm/hr (0-30)
[2023-11-17 15:10] LABS: HEMOGLOBIN A1c 5.1 % (4.0-6.0)
== END ==
LOC: M LAB REF 13:41
PROVIDERS: ATTEND Pediatrics
DX: L98.499 Non-pressure chronic ulcer of skin of other sites with unspecified severity (principal)

== ENCOUNTER → 2023-11-23 | Outpatient (CLI) | payer MEDICARE, MEDICAID | LOC: M WUC 14:16 | PROVIDERS: ATTEND Student in an Organized Health Care Education/Training Program | DX: S52.591D Other fractures of lower end of right radius, subsequent encounter for closed fracture with routine healing (principal) ==

== ENCOUNTER → 2023-12-10 | Outpatient (REF) | payer MEDICARE, MEDICAID | LOC: CANPREREF → M LAB REF 16:33 | PROVIDERS: ATTEND Family Medicine Addiction Medicine | DX: Z79.891 Long term (current) use of opiate analgesic (principal) ==

== ENCOUNTER 2024-01-27 07:55 | Day surgery (SDC) | payer MEDICARE, MEDICAID ==
[~2024-01-27] VITALS: Ht 160 cm; Wt 52.1 kg
[~2024-01-27 07:55] MED LIST changes: +CLINDAMYCIN 900 MG in IV 1 EA IV ONE; +DULO1CAP5 PO; +GABA-1172 PO; -GABA-282 PO; +HYDR1CAP25 PO; +VITA200016 PO
[2024-01-27] MEDS: LR 1,000 ML IV SCH (08:41)
[2024-01-27] MEDS ORDERED: MIDAZOLAM INJ 2MG/2ML VIAL As Ordered ONE (09:09)
[2024-01-27] MEDS ORDERED: LIDOCAINE 2% INJ 100 MG/5 ML SYRINGE As Ordered ONE (09:09)
[2024-01-27] MEDS ORDERED: ACETAMINOPHEN 1000MG 100ML IV BAG As Ordered ONE (09:09)
[2024-01-27] MEDS ORDERED: ONDANSETRON 4MG 2ML VIAL As Ordered ONE (09:09)
[2024-01-27] MEDS ORDERED: fentaNYL 100 MCG/2 ML INJECTION As Ordered ONE (09:09)
[2024-01-27] MEDS ORDERED: propofoL 200 MG/20 ML VIAL As Ordered ONE (09:09)
[2024-01-27] MEDS ORDERED: dexmedeTOMIDine (4MCG/ML)200MCG/50ML BTL (PRECEDEX) As Ordered ONE (09:09)
[2024-01-27] MEDS ORDERED: LIDOCAINE 1% SDV 30ML VIAL As Ordered ONE (09:13)
[2024-01-27 10:03] VITALS: BP 106/54; TEMP 98.1; O2SAT 97
== END 2024-01-27 10:52 | disposition home or self-care (01) ==
LOC: M SDC 07:55
PROVIDERS: ATTEND Podiatrist Foot & Ankle Surgery
DX: T81.32XA Disruption of internal operation (surgical) wound, not elsewhere classified, initial encounter (principal); Y83.8 Other surgical procedures as the cause of abnormal reaction of the patient, or of later complication, without mention of misadventure at the time of the procedure; I10 Essential (primary) hypertension; J43.9 Emphysema, unspecified; I67.1 Cerebral aneurysm, nonruptured; Z79.82 Long term (current) use of aspirin; Z79.899 Other long term (current) drug therapy; Z79.51 Long term (current) use of inhaled steroids; F17.210 Nicotine dependence, cigarettes, uncomplicated; G47.30 Sleep apnea, unspecified; G62.9 Polyneuropathy, unspecified; E78.00 Pure hypercholesterolemia, unspecified; K58.9 Irritable bowel syndrome, unspecified; K21.9 Gastro-esophageal reflux disease without esophagitis; Z88.0 Allergy status to penicillin; Z88.2 Allergy status to sulfonamides
CPT/HCPCS: 15275; J0131; J0665; J2250; J2405; J3010; V2790

== ENCOUNTER 2024-02-18 10:26 | Day surgery (SDC) | payer MEDICARE, MEDICAID ==
[~2024-02-18] VITALS: Ht 160 cm; Wt 53.0 kg
[~2024-02-18 10:26] MED LIST changes: -CLINDAMYCIN 900 MG in IV 1 EA IV ONE; +KETOROLAC 60MG 2ML VIAL As Ordered ONE; +LIDOCAINE 2% 100MG/5ML SDV (FOR ANES.) As Ordered ONE; +MIDAZOLAM INJ 2MG/2ML VIAL As Ordered ONE; +ONDANSETRON 4MG 2ML VIAL As Ordered ONE; +fentaNYL 100 MCG/2 ML INJECTION As Ordered ONE; +propofoL 200 MG/20 ML VIAL As Ordered ONE
[2024-02-18] MEDS: LIDOCAINE 1% SDV 30ML VIAL As Ordered ONE (11:16)
[2024-02-18 12:10] VITALS: BP 110/60; TEMP 98.2; O2SAT 95
== END 2024-02-18 12:40 | disposition home or self-care (01) ==
LOC: M SDC 10:26
PROVIDERS: ATTEND Podiatrist Foot & Ankle Surgery
DX: S91.101S Unspecified open wound of right great toe without damage to nail, sequela (principal); Y92.9 Unspecified place or not applicable; L97.516 Non-pressure chronic ulcer of other part of right foot with bone involvement without evidence of necrosis; G47.30 Sleep apnea, unspecified; I72.9 Aneurysm of unspecified site; Z88.0 Allergy status to penicillin; Z88.2 Allergy status to sulfonamides; Z79.899 Other long term (current) drug therapy; F17.210 Nicotine dependence, cigarettes, uncomplicated
CPT/HCPCS: 11044; 15275; J0665; J1100; J1885; J2250; J2405; J3010; V2790

== ENCOUNTER → 2024-02-26 | Outpatient (REF) | payer MEDICARE, MEDICAID ==
[~2024-02-26] MED LIST changes: -KETOROLAC 60MG 2ML VIAL As Ordered ONE; -LIDOCAINE 2% 100MG/5ML SDV (FOR ANES.) As Ordered ONE; -MIDAZOLAM INJ 2MG/2ML VIAL As Ordered ONE; -ONDANSETRON 4MG 2ML VIAL As Ordered ONE; -fentaNYL 100 MCG/2 ML INJECTION As Ordered ONE; -propofoL 200 MG/20 ML VIAL As Ordered ONE
[2024-02-26 20:03] LABS: THYROID STIMULATING HORMONE 1.285 uIU/ML (0.55-4.78)
[2024-02-26 20:04] LABS: ALBUMIN 3.9 G/DL (3.2-5.2); ALKALINE PHOSPHATASE 85 U/L (35-104); ALT/SGPT 12 U/L (7.0-40); AST/SGOT 9 U/L (<34); BILIRUBIN,TOTAL 0.2 MG/DL (0.3-1.2); BLOOD UREA NITROGEN 13 MG/DL (9-23); CALCIUM LEVEL 10.1 MG/DL (8.3-10.6); CARBON DIOXIDE LEVEL 30 MMOL/L (20-31); CHLORIDE LEVEL 110 MMOL/L (98-107); CHOLESTEROL LEVEL 164 MG/DL (<200); CHOLESTEROL RISK RATIO 2.99 (<5); CREATININE FOR GFR 0.75 MG/DL (0.55-1.30); GLOMERULAR FILTRATION RATE > 60.0 (>45); GLUCOSE, FASTING 95 MG/DL (74-106); HDL CHOLESTEROL 54.8 MG/DL (>40); LDL CHOLESTEROL 86.8 MG/DL (<100); NON-HDL-C 109.2 MG/DL; POTASSIUM SERUM 4.8 MMOL/L (3.5-5.1); SODIUM LEVEL 145 MMOL/L (136-145); TOTAL PROTEIN 7.3 G/DL (5.7-8.2); TRIGLYCERIDES LEVEL 112 MG/DL (<150)
== END ==
LOC: M LAB REF 16:34
PROVIDERS: ATTEND Pediatrics
DX: E78.5 Hyperlipidemia, unspecified (principal); F10.10 Alcohol abuse, uncomplicated

== ENCOUNTER → 2024-03-28 | Outpatient (CLI) | payer MEDICARE, MEDICAID | LOC: M RAD 14:45 | PROVIDERS: ATTEND Internal Medicine Pulmonary Disease | DX: Z87.891 Personal history of nicotine dependence (principal) ==

== ENCOUNTER → 2024-04-15 | Outpatient (REF) | payer MEDICARE, MEDICAID ==
[2024-04-15 19:39] LABS: BASO % 0.5 % (0.0-1.0); EOS # 0.1 10^3/uL (0.0-0.5); EOS % 1.1 % (0.0-3.0); HEMATOCRIT 39.6 % (36.0-47.0); LYMPH # 2.1 10^3/uL (1.5-5.0); LYMPH % 24.5 % (24.0-44.0); MEAN CORPUSCULAR HEMOGLOBIN 31.3 pg (27.0-33.0); MEAN CORPUSCULAR HGB CONC 32.8 g/dl (32.0-36.5); MEAN CORPUSCULAR VOLUME 95.4 fl (80.0-96.0); MONO # 0.5 10^3/uL (0.0-0.8); MONO % 6.3 % (2.0-8.0); NEUTROPHILS # 5.7 10^3/uL (1.5-8.5); NEUTROPHILS % 67.2 % (36.0-66.0); PLATELET COUNT, AUTOMATED 185 10^3/uL (150-450); RED BLOOD COUNT 4.15 10^6/uL (4.00-5.40); WHITE BLOOD COUNT 8.4 10^3/uL (4.0-10.0)
[2024-04-15 19:54] LABS: BLOOD UREA NITROGEN 13 MG/DL (9-23); CALCIUM LEVEL 10.1 MG/DL (8.3-10.6); CARBON DIOXIDE LEVEL 33 MMOL/L (20-31); CHLORIDE LEVEL 103 MMOL/L (98-107); CREATININE FOR GFR 0.74 MG/DL (0.55-1.30); GLOMERULAR FILTRATION RATE > 60.0 (>45); GLUCOSE, FASTING 106 MG/DL (74-106); POTASSIUM SERUM 4.4 MMOL/L (3.5-5.1); SODIUM LEVEL 142 MMOL/L (136-145)
== END ==
LOC: M LAB REF 16:17
PROVIDERS: ATTEND Pediatrics
DX: Z01.812 Encounter for preprocedural laboratory examination (principal); Z79.899 Other long term (current) drug therapy

== ENCOUNTER → 2024-05-03 | Outpatient (REF) | payer MEDICARE, MEDICAID ==
[2024-05-03 16:06] LABS: BASO % 0.4 % (0.0-1.0); EOS # 0.1 10^3/uL (0.0-0.5); EOS % 1.7 % (0.0-3.0); HEMATOCRIT 41.8 % (36.0-47.0); LYMPH # 1.9 10^3/uL (1.5-5.0); LYMPH % 26.5 % (24.0-44.0); MEAN CORPUSCULAR HEMOGLOBIN 32.2 pg (27.0-33.0); MEAN CORPUSCULAR HGB CONC 33.5 g/dl (32.0-36.5); MEAN CORPUSCULAR VOLUME 96.1 fl (80.0-96.0); MONO # 0.6 10^3/uL (0.0-0.8); MONO % 7.8 % (2.0-8.0); NEUTROPHILS # 4.5 10^3/uL (1.5-8.5); NEUTROPHILS % 63.3 % (36.0-66.0); PLATELET COUNT, AUTOMATED 179 10^3/uL (150-450); RED BLOOD COUNT 4.35 10^6/uL (4.00-5.40); WHITE BLOOD COUNT 7.1 10^3/uL (4.0-10.0)
[2024-05-03 16:11] LABS: BLOOD UREA NITROGEN 12 MG/DL (9-23); CALCIUM LEVEL 9.7 MG/DL (8.3-10.6); CARBON DIOXIDE LEVEL 30 MMOL/L (20-31); CHLORIDE LEVEL 104 MMOL/L (98-107); CREATININE FOR GFR 0.75 MG/DL (0.55-1.30); GLOMERULAR FILTRATION RATE > 60.0 (>45); GLUCOSE, FASTING 71 MG/DL (74-106); POTASSIUM SERUM 4.7 MMOL/L (3.5-5.1); SODIUM LEVEL 141 MMOL/L (136-145)
== END ==
LOC: M LAB REF 15:44
PROVIDERS: ATTEND Pediatrics
DX: Z01.818 Encounter for other preprocedural examination (principal)

== ENCOUNTER → 2024-05-05 | Outpatient (CLI) | payer MEDICARE, MEDICAID | LOC: M RAD 15:18 | PROVIDERS: ATTEND Pediatrics | DX: Z01.818 Encounter for other preprocedural examination (principal) ==

== ENCOUNTER 2024-05-17 07:39 | Day surgery (SDC) | payer MEDICARE, MEDICAID ==
[~2024-05-17] VITALS: Ht 160 cm; Wt 56.9 kg
[~2024-05-17 07:39] MED LIST changes: +CIPROFLOXACIN 400 MG in IV 1 EA IV ONE
[2024-05-17] MEDS: NS (Normal Saline) 0.9% 1,000 ML IV SCH (08:36)
[2024-05-17] MEDS ORDERED: MIDAZOLAM INJ 2MG/2ML VIAL As Ordered ONE (08:50)
[2024-05-17] MEDS ORDERED: propofoL 200 MG/20 ML VIAL As Ordered ONE (08:50)
[2024-05-17] MEDS ORDERED: ONDANSETRON 4MG 2ML VIAL As Ordered ONE (08:50)
[2024-05-17] MEDS ORDERED: LIDOCAINE 2% 100MG/5ML SDV (FOR ANES.) As Ordered ONE (08:50)
[2024-05-17] MEDS ORDERED: dexmedeTOMIDine (4MCG/ML)200MCG/50ML BTL (PRECEDEX) As Ordered ONE (08:50)
[2024-05-17] MEDS ORDERED: fentaNYL 100 MCG/2 ML INJECTION As Ordered ONE (08:50)
[2024-05-17] MEDS: CIPROFLOXACIN 400 MG in IV 1 EA IV ONE (09:26)
[2024-05-17] MEDS ORDERED: ePHEDrine SULFATE 25 MG/5 ML(5MG/ML) SYRINGE As Ordered ONE (09:41)
[2024-05-17] MEDS: GENTAMICIN SULF 80MG/2ML VIAL As Ordered ONE (09:47)
[2024-05-17] MEDS ORDERED: PHENYLephrine 500MCG 5ML (100MCG/ML) SYRINGE As Ordered ONE (09:50)
[2024-05-17] MEDS: BUPivacaine LIPOSOME/PF 266MG 20ML VIAL (13.3MG/ML)(EXPAREL) As Ordered ONE (10:03)
[2024-05-17] MEDS ORDERED: ACETAMINOPHEN 1000MG/100ML IV BAG As Ordered ONE (10:03)
[2024-05-17] MEDS ORDERED: HYDROMORPHONE HCL 0.5 MG/ 0.5 ML SYRINGE IV PRN (10:35)
[2024-05-17] MEDS ORDERED: oxyCODONE 5MG TAB PO PRN (10:35)
[2024-05-17] MEDS ORDERED: fentaNYL 100 MCG/2 ML INJECTION IV PRN (10:35)
[2024-05-17] MEDS ORDERED: ONDANSETRON 4MG 2ML VIAL IV PRN (10:35)
[2024-05-17] MEDS ORDERED: NS (Normal Saline) 0.9% 1,000 ML IV SCH (10:35)
[2024-05-17] MEDS ORDERED: PERC5TAB12 PO (10:43)
[2024-05-17 11:20] VITALS: BP 136/76; TEMP 97.3; O2SAT 96
[2024-05-17] MEDS ORDERED: CIPR-249 PO (13:51)
== END 2024-05-17 11:34 | disposition home or self-care (01) ==
LOC: M SDC 07:39
PROVIDERS: ATTEND Plastic Surgery Surgery of the Hand
DX: S91.101A Unspecified open wound of right great toe without damage to nail, initial encounter (principal); X58.XXXA Exposure to other specified factors, initial encounter; Y92.9 Unspecified place or not applicable; Y93.9 Activity, unspecified; Y99.9 Unspecified external cause status; I67.1 Cerebral aneurysm, nonruptured; Z88.0 Allergy status to penicillin; Z88.2 Allergy status to sulfonamides; Z79.899 Other long term (current) drug therapy; Z87.891 Personal history of nicotine dependence
CPT/HCPCS: 11044; 15275; 87070; 87075; 87077; 88304; J0131; J0666; J0744; J1100; J1580; J2250; J2371; J2405; J3010; Q4104

== ENCOUNTER → 2024-07-18 | Outpatient (CLI) | payer MEDICARE, MEDICAID ==
[~2024-07-18] MED LIST changes: +CIPR-249 PO; -CIPROFLOXACIN 400 MG in IV 1 EA IV ONE; +PERC5TAB12 PO
== END ==
LOC: M WHC 10:56
PROVIDERS: ATTEND Pediatrics
DX: M81.0 Age-related osteoporosis without current pathological fracture (principal)

== ENCOUNTER → 2024-08-05 | Outpatient (CLI) | payer MEDICARE, MEDICAID | LOC: M LAB 17:23 | PROVIDERS: ATTEND Registered Nurse Psychiatric/Mental Health | DX: F32.89 Other specified depressive episodes (principal) ==

== ENCOUNTER → 2024-08-17 | Outpatient (CLI) | payer MEDICARE, MEDICAID ==
[~2024-08-17] MED LIST changes: +BUSP10TA PO; +METH-1164 PO
[2024-08-17 12:17] LABS: BASO % 0.4 % (0.0-1.0); EOS # 0.1 10^3/uL (0.0-0.5); EOS % 0.8 % (0.0-3.0); HEMATOCRIT 35.4 % (36.0-47.0); HEMOGLOBIN 11.3 g/dl (12.0-15.5); LYMPH % 20.1 % (24.0-44.0); MEAN CORPUSCULAR HEMOGLOBIN 31.2 pg (27.0-33.0); MEAN CORPUSCULAR HGB CONC 31.9 g/dl (32.0-36.5); MEAN CORPUSCULAR VOLUME 97.8 fl (80.0-96.0); MONO # 0.7 10^3/uL (0.0-0.8); MONO % 7.1 % (2.0-8.0); NEUTROPHILS # 6.9 10^3/uL (1.5-8.5); NEUTROPHILS % 71.3 % (36.0-66.0); PLATELET COUNT, AUTOMATED 189 10^3/uL (150-450); RED BLOOD COUNT 3.62 10^6/uL (4.00-5.40); WHITE BLOOD COUNT 9.7 10^3/uL (4.0-10.0)
[2024-08-17 12:38] LABS: BLOOD UREA NITROGEN 10 MG/DL (9-23); CALCIUM LEVEL 8.2 MG/DL (8.3-10.6); CARBON DIOXIDE LEVEL 32 MMOL/L (20-31); CHLORIDE LEVEL 103 MMOL/L (98-107); CREATININE FOR GFR 0.74 MG/DL (0.55-1.30); GLOMERULAR FILTRATION RATE > 90.0 (>45); GLUCOSE, FASTING 79 MG/DL (74-106); POTASSIUM SERUM 4.2 MMOL/L (3.5-5.1); SODIUM LEVEL 141 MMOL/L (136-145)
== END ==
LOC: M RAD 11:24
PROVIDERS: ATTEND Physician Assistant
DX: Z01.818 Encounter for other preprocedural examination (principal)

== ENCOUNTER → 2024-09-15 | Outpatient (CLI) | payer MEDICARE, MEDICAID | LOC: M RAD 12:47 | PROVIDERS: ATTEND Neurological Surgery | DX: M48.02 Spinal stenosis, cervical region (principal) ==

== ENCOUNTER 2024-12-04 09:50 | Inpatient (IN) | payer MEDICARE, MEDICAID ==
[~2024-12-04] VITALS: Ht 160 cm; Wt 54.9 kg
[~2024-12-04 09:50] MED LIST changes: +CIPR500T39 PO; +DICL50TAB PO; +DOXY100C3 PO; +PERCOCET PO
[2024-12-04 10:22] LABS: VENOUS BASE EXCESS 0.3 (-2.0-2.0); VENOUS HCO3 25.3 MMOL/L (23.0-27.0); VENOUS O2 SATURATION 76.7 % (60.0-80.0); VENOUS PARTIAL PRESSURE CO2 42.4 mmHg (38.0-50.0); VENOUS PARTIAL PRESSURE O2 43.0 mmHg (30.0-50.0); VENOUS PH 7.394 UNITS (7.330-7.430); VENOUS STANDARD HCO3 24.3 MMOL/L; VENOUS TOTAL CO2 26.6 MMOL/L (24.0-28.0)
[2024-12-04 10:26] LABS: BASO # 0.0 10^3/uL (0.0-0.2); BASO % 0.2 % (0.0-1.0); EOS # 0.0 10^3/uL (0.0-0.5); EOS % 0.1 % (0.0-3.0); LYMPH # 1.0 10^3/uL (1.5-5.0); LYMPH % 7.2 % (24.0-44.0); MONO # 0.8 10^3/uL (0.0-0.8); MONO % 5.8 % (2.0-8.0); NEUTROPHILS # 11.9 10^3/uL (1.5-8.5); NEUTROPHILS % 86.1 % (36.0-66.0); PLATELET COUNT, AUTOMATED 175 10^3/uL (150-450)
[2024-12-04 10:57] LABS: ALT/SGPT < 9 U/L (7.0-40); AST/SGOT 11 U/L (<34); CALCIUM LEVEL 8.5 MG/DL (8.3-10.6); CARBON DIOXIDE LEVEL 26 MMOL/L (20-31); CHLORIDE LEVEL 101 MMOL/L (98-107); CK-MB VALUE MASS < 1.0 NG/ML (<3.6); CPK CREATINE PHOSPHOKINASE 17 U/L (34-145); CREATININE FOR GFR 0.87 MG/DL (0.55-1.30); GLOMERULAR FILTRATION RATE 73.9 (>45); POTASSIUM SERUM 3.6 MMOL/L (3.5-5.1); SODIUM LEVEL 139 MMOL/L (136-145)
[2024-12-04 10:59] LABS: THYROXINE (T4) 5.6 UG/DL (4.5-10.9)
[2024-12-04] MEDS ORDERED: ISOVUE-370 76% 100 ML VIAL As Ordered ONE (11:26)
[2024-12-04] MEDS: cefTRIAXone SOD 2 GM in DEXTROSE 5% (D5W) ADV/MINI-BAG 50 ML IV ONE (12:00)
[2024-12-04] MEDS: IPRATROPIUM 0.5 MG/ALBUTEROL 2.5 MG INH SOL UD 3 ML NEB SCH (12:06)
[2024-12-04] MEDS: DOXYCYCLINE HYCLATE 100 MG in DEXTROSE 5% (D5W) MINI-BAG PLU 100 ML IV ONE (12:26)
[2024-12-04] MEDS ORDERED: MAALOX 30 ML SUSP *UDC PO PRN (16:20)
[2024-12-04] MEDS ORDERED: MOM 30 ML SUSPENSION UDC PO PRN (16:20)
[2024-12-04] MEDS ORDERED: HOME MED LIST COMPLETE! XX SCH (16:45)
[2024-12-04] MEDS: NS (Normal Saline) 0.9% 1,000 ML IV ONE (17:07)
[2024-12-04 17:28] VITALS: BP 116/65; TEMP 97.5; O2SAT 96
[2024-12-04] MEDS: MULTIVITAMINS/MINERALS THERAP 1 TAB PO SCH (18:04)
[2024-12-04] MEDS: NS (Normal Saline) 0.9% 1,000 ML IV SCH (18:04)
[2024-12-04] MEDS: FOLIC ACID 1 MG TAB PO SCH (18:04)
[2024-12-04 18:12] VITALS: BP 116/65
[2024-12-04] MEDS ORDERED: IPRATROPIUM 0.06% NASAL SPRAY 15 ML (ATROVENT) PRN (18:55)
[2024-12-04] MEDS ORDERED: ALBUTEROL SULFATE 2.5 MG/0.5 ML INH CONCENTRATE NEB SOLN INH PRN (18:55)
[2024-12-04] MEDS ORDERED: PILL CUTTER 1 EACH XX PRN (19:20)
[2024-12-04] MEDS: ACETYLCYSTEINE 20% 4 ML VIAL (200 MG/ML) INH SCH (19:27)
[2024-12-04] MEDS: LEVALBUTEROL 1.25 MG 0.5ML CONCENTRATE NEB INH SCH (19:27)
[2024-12-04 20:00] VITALS: BP 138/73; TEMP 98.4; O2SAT 97
[2024-12-04] MEDS: DOXYCYCLINE HYCLATE 100 MG TABLET PO SCH (21:28)
[2024-12-04] MEDS: RAMELTEON 8 MG TAB PO SCH (21:29)
[2024-12-04] MEDS: GABAPENTIN 300 MG CAP PO SCH (21:29)
[2024-12-04] MEDS: traZODone 50 MG TAB PO SCH (21:29)
[2024-12-04] MEDS: CETIRIZINE 10 MG TAB PO SCH (21:29)
[2024-12-04] MEDS: ATORVASTATIN 20 MG TAB PO SCH (21:30)
[2024-12-04] MEDS: THIAMINE 100 MG TAB PO SCH (21:30)
[2024-12-04 22:00] VITALS: BP 138/74
[2024-12-04 22:04] VITALS: BP 138/74; TEMP 97.5; O2SAT 93
[2024-12-04] MEDS: PRAMIPEXOLE 1 MG TAB PO SCH (22:06)
[2024-12-04] MEDS: DIVALPROEX 250 MG TAB PO SCH (22:06)
[2024-12-04] MEDS: ACETAMINOPHEN 325 MG TAB PO PRN (22:07)
[2024-12-05] VITALS (9 sets, daily range): BP systolic 100–147; BP diastolic 46–119; TEMP 97.2–98.2; O2SAT 94–97
[2024-12-05] MEDS: cefTRIAXone SOD 2 GM in DEXTROSE 5% (D5W) ADV/MINI-BAG 50 ML IV SCH (08:34)
[2024-12-05] MEDS: OMEPRAZOLE 20MG CAP PO SCH (08:36)
[2024-12-05] MEDS: ASPIRIN 81 MG ENTERIC TABLET PO SCH (08:36)
[2024-12-05] MEDS: ENOXAPARIN 40 MG/0.4 ML SYRINGE (J1650 PER 10MG) SC SCH (08:38)
[2024-12-05 09:11] LABS: BASO # 0.0 10^3/uL (0.0-0.2); BASO % 0.1 % (0.0-1.0); EOS # 0.0 10^3/uL (0.0-0.5); EOS % 0.0 % (0.0-3.0); LYMPH # 0.8 10^3/uL (1.5-5.0); LYMPH % 6.8 % (24.0-44.0); MONO # 0.5 10^3/uL (0.0-0.8); MONO % 4.6 % (2.0-8.0); NEUTROPHILS # 10.0 10^3/uL (1.5-8.5); NEUTROPHILS % 87.4 % (36.0-66.0); PLATELET COUNT, AUTOMATED 187 10^3/uL (150-450)
[2024-12-05 09:29] LABS: CALCIUM LEVEL 8.0 MG/DL (8.3-10.6); CARBON DIOXIDE LEVEL 25 MMOL/L (20-31); CHLORIDE LEVEL 107 MMOL/L (98-107); CREATININE FOR GFR 0.67 MG/DL (0.55-1.30); GLOMERULAR FILTRATION RATE > 90.0 (>45); MAGNESIUM LEVEL 1.8 MG/DL (1.8-2.4); POTASSIUM SERUM 3.2 MMOL/L (3.5-5.1); SODIUM LEVEL 145 MMOL/L (136-145)
[2024-12-05] MEDS: MIDODRINE 5 MG TAB PO PRN (14:24)
[2024-12-05] MEDS: POTASSIUM CHLORIDE 10MEQ SR TABLET PO ONE (16:22)
[2024-12-05] MEDS: SODIUM CHLORIDE HYPERTONIC 3% 4ML NEB SOL INH SCH (19:28)
[2024-12-05] MEDS: POTASSIUM CHLORIDE 10MEQ SR TABLET PO SCH (20:18)
[2024-12-06 04:30] VITALS: BP 127/56; TEMP 96.8; O2SAT 94
[2024-12-06 06:00] VITALS: BP 127/56
[2024-12-06 06:51] LABS: BASO # 0.0 10^3/uL (0.0-0.2); BASO % 0.4 % (0.0-1.0); EOS # 0.0 10^3/uL (0.0-0.5); EOS % 0.5 % (0.0-3.0); LYMPH # 1.6 10^3/uL (1.5-5.0); LYMPH % 28.2 % (24.0-44.0); MONO # 0.3 10^3/uL (0.0-0.8); MONO % 4.5 % (2.0-8.0); NEUTROPHILS # 3.7 10^3/uL (1.5-8.5); NEUTROPHILS % 65.9 % (36.0-66.0); PLATELET COUNT, AUTOMATED 198 10^3/uL (150-450)
[2024-12-06 07:20] LABS: MAGNESIUM LEVEL 1.6 MG/DL (1.8-2.4)
[2024-12-06 08:07] LABS: CALCIUM LEVEL 7.9 MG/DL (8.3-10.6); CARBON DIOXIDE LEVEL 24.0 MMOL/L (20-31); CHLORIDE LEVEL 111.0 MMOL/L (98-107); CREATININE FOR GFR 0.74 MG/DL (0.55-1.30); GLOMERULAR FILTRATION RATE 89.7 (>45); POTASSIUM SERUM 3.9 MMOL/L (3.5-5.1); SODIUM LEVEL 147.0 MMOL/L (136-145)
[2024-12-06] MEDS: MAG SULF 1GM/100ML (MAG RUN) 1 GM in IV 1 EA IV SCH (09:53)
[2024-12-06 11:44] VITALS: BP 107/56; TEMP 98.1; O2SAT 94
[2024-12-06 14:54] VITALS: BP 106/55
[2024-12-06 21:20] VITALS: BP 109/57; TEMP 97.5; O2SAT 92
[2024-12-06 22:00] VITALS: BP 109/57
[2024-12-07 04:34] VITALS: BP 118/62; TEMP 97.5; O2SAT 95
[2024-12-07 06:00] VITALS: BP 118/62
[2024-12-07 06:17] LABS: BASO # 0.0 10^3/uL (0.0-0.2); BASO % 0.4 % (0.0-1.0); EOS # 0.1 10^3/uL (0.0-0.5); EOS % 1.5 % (0.0-3.0); LYMPH # 1.6 10^3/uL (1.5-5.0); LYMPH % 35.5 % (24.0-44.0); MONO # 0.4 10^3/uL (0.0-0.8); MONO % 8.4 % (2.0-8.0); NEUTROPHILS # 2.5 10^3/uL (1.5-8.5); NEUTROPHILS % 54.0 % (36.0-66.0); PLATELET COUNT, AUTOMATED 228 10^3/uL (150-450)
[2024-12-07 06:46] LABS: CALCIUM LEVEL 8.3 MG/DL (8.3-10.6); CARBON DIOXIDE LEVEL 28 MMOL/L (20-31); CHLORIDE LEVEL 108 MMOL/L (98-107); CREATININE FOR GFR 0.74 MG/DL (0.55-1.30); GLOMERULAR FILTRATION RATE 89.7 (>45); MAGNESIUM LEVEL 1.9 MG/DL (1.8-2.4); POTASSIUM SERUM 4.5 MMOL/L (3.5-5.1); SODIUM LEVEL 141 MMOL/L (136-145)
[2024-12-07] MEDS ORDERED: LEVO1TAB40 PO (11:31)
[2024-12-07] MEDS ORDERED: DOXY100T PO (11:31)
[2024-12-07] MEDS ORDERED: IPRA0.00 INH (11:31)
[2024-12-07] MEDS ORDERED: PROBCAP14 PO (11:31)
[2024-12-07] MEDS ORDERED: MUCI120T PO (11:34)
[2024-12-07] MEDS ORDERED: NASA0.9A NEB (11:46)
== END 2024-12-07 13:14 | disposition home or self-care (01) | DRG 871 ==
LOC: EDBD 09:50 → M ED 09:50 → M ED INP 16:16 → M MSPAV 17:19
PROVIDERS: ADMIT Student in an Organized Health Care Education/Training Program; ATTEND Student in an Organized Health Care Education/Training Program
DX: A41.9 Sepsis, unspecified organism (principal); J18.9 Pneumonia, unspecified organism; J44.0 Chronic obstructive pulmonary disease with (acute) lower respiratory infection; E87.0 Hyperosmolality and hypernatremia; J44.9 Chronic obstructive pulmonary disease, unspecified; G40.909 Epilepsy, unspecified, not intractable, without status epilepticus; G43.909 Migraine, unspecified, not intractable, without status migrainosus; I10 Essential (primary) hypertension; G47.33 Obstructive sleep apnea (adult) (pediatric); K58.0 Irritable bowel syndrome with diarrhea; K21.9 Gastro-esophageal reflux disease without esophagitis; M19.90 Unspecified osteoarthritis, unspecified site; M81.0 Age-related osteoporosis without current pathological fracture; J98.09 Other diseases of bronchus, not elsewhere classified; F32.A Depression, unspecified; F41.9 Anxiety disorder, unspecified; D69.6 Thrombocytopenia, unspecified; G47.00 Insomnia, unspecified; Z87.891 Personal history of nicotine dependence; F10.10 Alcohol abuse, uncomplicated; Z79.82 Long term (current) use of aspirin; Z79.899 Other long term (current) drug therapy; Z88.0 Allergy status to penicillin; Z88.2 Allergy status to sulfonamides

== ENCOUNTER → 2024-12-21 | Outpatient (CLI) | payer MEDICARE, MEDICAID ==
[~2024-12-21] MED LIST changes: +IPRA0.00 INH; +LEVO1TAB40 PO; +MUCI120T PO; +NASA0.9A NEB; +PROBCAP14 PO
== END ==
LOC: M RAD 14:26
PROVIDERS: ATTEND Plastic Surgery Surgery of the Hand
DX: L97.519 Non-pressure chronic ulcer of other part of right foot with unspecified severity (principal); Z48.817 Encounter for surgical aftercare following surgery on the skin and subcutaneous tissue

== ENCOUNTER → 2025-01-06 | Outpatient (CLI) | payer MEDICARE, MEDICAID ==
[~2025-01-06] MED LIST changes: +D3 S1CAP PO
[2025-01-06 15:21] LABS: BASO # 0.0 10^3/uL (0.0-0.2); BASO % 0.5 % (0.0-1.0); EOS # 0.1 10^3/uL (0.0-0.5); EOS % 0.8 % (0.0-3.0); LYMPH # 2.0 10^3/uL (1.5-5.0); LYMPH % 29.9 % (24.0-44.0); MONO # 0.5 10^3/uL (0.0-0.8); MONO % 7.3 % (2.0-8.0); NEUTROPHILS # 4.0 10^3/uL (1.5-8.5); NEUTROPHILS % 61.2 % (36.0-66.0); PLATELET COUNT, AUTOMATED 211 10^3/uL (150-450)
[2025-01-06 15:56] LABS: CALCIUM LEVEL 9.5 MG/DL (8.3-10.6); CARBON DIOXIDE LEVEL 28.0 MMOL/L (20-31); CHLORIDE LEVEL 104.0 MMOL/L (98-107); CREATININE FOR GFR 0.77 MG/DL (0.55-1.30); GLOMERULAR FILTRATION RATE 85.6 (>45); POTASSIUM SERUM 4.2 MMOL/L (3.5-5.1); SODIUM LEVEL 143.0 MMOL/L (136-145)
== END ==
LOC: M RAD 14:30
PROVIDERS: ATTEND Pediatrics
DX: Z01.818 Encounter for other preprocedural examination (principal); R91.8 Other nonspecific abnormal finding of lung field; Z87.81 Personal history of (healed) traumatic fracture; R94.31 Abnormal electrocardiogram [ECG] [EKG]

== ENCOUNTER 2025-01-10 07:01 | Inpatient (IN) | payer MEDICARE, MEDICAID ==
[~2025-01-10] VITALS: Ht 160 cm; Wt 55.0 kg
[~2025-01-10 07:01] MED LIST changes: +LIDOCAINE 2% 100 MG/5 ML SDV (FOR ANES.) As Ordered ONE; +MIDAZOLAM INJ 2 MG/2 ML VIAL As Ordered ONE; +ONDANSETRON 4MG 2ML VIAL As Ordered ONE; +dexAMETHasone 4 MG/ML 1 ML VIAL As Ordered ONE; +dexmedeTOMIDine (4 MCG/ML) 200 MCG/50 ML BTL As Ordered ONE
[2025-01-10] MEDS ORDERED: LR 1,000 ML IV SCH (07:20)
[2025-01-10] MEDS: ceFAZolin SOD 2 GM IV ONCE IV ONE (08:43)
[2025-01-10] MEDS ORDERED: ACETAMINOPHEN 1000MG/100ML IV BAG As Ordered ONE (08:47)
[2025-01-10] MEDS: LR 1,000 ML IV SCH (11:00)
[2025-01-10] MEDS ORDERED: ONDANSETRON 4MG 2ML VIAL IV PRN (11:00)
[2025-01-10] MEDS: HYDROMORPHONE HCL 0.5 MG/0.5 ML SYRINGE IV PRN (11:20)
[2025-01-10 12:31] LABS: BASO # 0.0 10^3/uL (0.0-0.2); BASO % 0.2 % (0.0-1.0); EOS # 0.0 10^3/uL (0.0-0.5); EOS % 0.2 % (0.0-3.0); LYMPH # 0.5 10^3/uL (1.5-5.0); LYMPH % 7.6 % (24.0-44.0); MONO # 0.1 10^3/uL (0.0-0.8); MONO % 2.3 % (2.0-8.0); NEUTROPHILS # 5.4 10^3/uL (1.5-8.5); NEUTROPHILS % 89.4 % (36.0-66.0); PLATELET COUNT, AUTOMATED 155 10^3/uL (150-450)
[2025-01-10 12:36] LABS: CALCIUM LEVEL 8.7 MG/DL (8.3-10.6); CARBON DIOXIDE LEVEL 26 MMOL/L (20-31); CHLORIDE LEVEL 106 MMOL/L (98-107); CREATININE FOR GFR 0.67 MG/DL (0.55-1.30); GLOMERULAR FILTRATION RATE > 90.0 (>45); MAGNESIUM LEVEL 1.6 MG/DL (1.8-2.4); POTASSIUM SERUM 3.8 MMOL/L (3.5-5.1); SODIUM LEVEL 142 MMOL/L (136-145)
[2025-01-10] MEDS ORDERED: IPRATROPIUM 0.06% NASAL SPRAY 15 ML (ATROVENT) PRN (12:50)
[2025-01-10] MEDS ORDERED: MIDODRINE 5 MG TAB PO PRN (12:50)
[2025-01-10] MEDS ORDERED: ALBUTEROL SULFATE 2.5 MG/0.5 ML INH CONCENTRATE NEB SOLN INH PRN (12:50)
[2025-01-10] MEDS ORDERED: IPRA0.00 INH (12:59)
[2025-01-10] MEDS ORDERED: HOME MED LIST COMPLETE! XX SCH (13:00)
[2025-01-10] MEDS ORDERED: PILL CUTTER 1 EACH XX PRN (14:00)
[2025-01-10 16:04] VITALS: BP 127/61
[2025-01-10 16:15] VITALS: BP 130/72; TEMP 97.9; O2SAT 98
[2025-01-10] MEDS: MAG SULF 1GM/100ML (MAG RUN) 1 GM in IV 1 EA IV SCH (16:32)
[2025-01-10] MEDS: THIAMINE 100 MG TAB PO SCH (16:34)
[2025-01-10] MEDS: ACETAMINOPHEN 325 MG TAB PO PRN (16:35)
[2025-01-10] MEDS: IPRATROPIUM 0.5 MG/ALBUTEROL 2.5 MG INH SOL UD 3 ML INH SCH (19:59)
[2025-01-10] MEDS: traZODone 50 MG TAB PO SCH (20:24)
[2025-01-10] MEDS: DIVALPROEX 250 MG TAB PO SCH (20:24)
[2025-01-10] MEDS: ATORVASTATIN 20 MG TAB PO SCH (20:24)
[2025-01-10] MEDS: CETIRIZINE 10 MG TAB PO SCH (20:25)
[2025-01-10] MEDS: RAMELTEON 8 MG TAB PO SCH (20:39)
[2025-01-10] MEDS: PRAMIPEXOLE 1 MG TAB PO SCH (20:41)
[2025-01-10] MEDS: traMADol 50 MG TAB PO PRN (21:30)
[2025-01-10 21:46] VITALS: BP 143/67; TEMP 98.1; O2SAT 97
[2025-01-10 22:25] VITALS: BP 103/55; TEMP 98.1; O2SAT 97
[2025-01-10 23:06] VITALS: BP 113/57; TEMP 98.1; O2SAT 95
[2025-01-11 00:37] VITALS: BP 113/57; TEMP 97.9; O2SAT 95
[2025-01-11] MEDS: PERCOCET 5MG/325MG TAB PO PRN (04:52)
[2025-01-11 05:00] VITALS: BP 111/58; TEMP 98.4; O2SAT 94
[2025-01-11] MEDS ORDERED: IPRATROPIUM 0.5 MG/ALBUTEROL 2.5 MG INH SOL UD 3 ML INH PRN (07:30)
[2025-01-11] MEDS: TIOTROPIUM BROM 2.5MCG/ACTUATION 4GM INH INH SCH (08:02)
[2025-01-11] MEDS: MULTIVITAMINS/MINERALS THERAP 1 TAB PO SCH (09:09)
[2025-01-11] MEDS: ceFAZolin SODIUM 2 GM in DEXTROSE 5% (D5W) ADV/MINI-BAG 50 ML IV SCH (09:10)
[2025-01-11] MEDS: FOLIC ACID 1 MG TAB PO SCH (09:10)
[2025-01-11] MEDS: OMEPRAZOLE 20MG CAP PO SCH (09:11)
[2025-01-11 14:00] VITALS: BP 99/43; TEMP 97.9; O2SAT 96
[2025-01-11 20:00] VITALS: BP_SYST 105; BP_SYST 149; BP_DIAS 51; BP_DIAS 79; TEMP 96.1; TEMP 97.3; O2SAT 90; O2SAT 93
[2025-01-11 22:00] VITALS: BP 105/51
[2025-01-12 04:00] VITALS: BP 113/53; TEMP 97.9; O2SAT 92
[2025-01-12 06:50] VITALS: BP 113/53
[2025-01-13] MEDS ORDERED: TRAM50TA2 PO (10:46)
== END 2025-01-12 13:48 | disposition home or self-care (01) | DRG 575 ==
LOC: M SDC 07:01 → M RR INP 11:14 → M MS5PR 16:05
PROVIDERS: ADMIT Student in an Organized Health Care Education/Training Program; ATTEND Student in an Organized Health Care Education/Training Program
PROC: 0HRMX73 Replacement of Right Foot Skin with Autologous Tissue Substitute, Full Thickness, External Approach (ICD-10-PCS; principal; 2025-01-10 08:30)
PROC: 0HB7XZZ Excision of Abdomen Skin, External Approach (ICD-10-PCS; 2025-01-10 08:30)
DX: L97.516 Non-pressure chronic ulcer of other part of right foot with bone involvement without evidence of necrosis (principal); G40.909 Epilepsy, unspecified, not intractable, without status epilepticus; J44.9 Chronic obstructive pulmonary disease, unspecified; I10 Essential (primary) hypertension; G43.909 Migraine, unspecified, not intractable, without status migrainosus; G47.33 Obstructive sleep apnea (adult) (pediatric); K21.9 Gastro-esophageal reflux disease without esophagitis; K58.0 Irritable bowel syndrome with diarrhea; M19.90 Unspecified osteoarthritis, unspecified site; M81.0 Age-related osteoporosis without current pathological fracture; F41.9 Anxiety disorder, unspecified; F32.A Depression, unspecified; D69.6 Thrombocytopenia, unspecified; E83.42 Hypomagnesemia; G47.00 Insomnia, unspecified; F10.10 Alcohol abuse, uncomplicated; I95.9 Hypotension, unspecified; Z79.82 Long term (current) use of aspirin; Z79.899 Other long term (current) drug therapy; Z88.0 Allergy status to penicillin; Z88.2 Allergy status to sulfonamides

== ENCOUNTER → 2025-01-30 | Outpatient (CLI) | payer MEDICARE, MEDICAID ==
[~2025-01-30] MED LIST changes: -LIDOCAINE 2% 100 MG/5 ML SDV (FOR ANES.) As Ordered ONE; -MIDAZOLAM INJ 2 MG/2 ML VIAL As Ordered ONE; -ONDANSETRON 4MG 2ML VIAL As Ordered ONE; -dexAMETHasone 4 MG/ML 1 ML VIAL As Ordered ONE; -dexmedeTOMIDine (4 MCG/ML) 200 MCG/50 ML BTL As Ordered ONE
== END ==
LOC: M RAD 08:45
PROVIDERS: ATTEND Internal Medicine Pulmonary Disease
DX: R91.8 Other nonspecific abnormal finding of lung field (principal); J43.9 Emphysema, unspecified; J47.9 Bronchiectasis, uncomplicated; J98.4 Other disorders of lung